=== PATIENT | male | born 1945 | race Caucasian/White ===

== ENCOUNTER 2018-01-03 10:28 | Inpatient (IN) ==
--- NOTE | 2018-01-02 21:41 | Discharge Summary ---
<Catherine Lee - Last Filed: 01/02/18 21:39> Orders not resulted at time of discharge: Pending orders 01/03/18 00:01 XR knee LT limited 1-2V [XR] Routine H/H [Hemoglobin and Hematocrit] [HEME] Routine Date of Encounter: 01/02/18 - Discharge Diagnosis (1) Arthritis of knee, left Priority: Primary Status: Acute (2) Status post total knee replacement, left Priority: Primary Status: Acute (3) Atrial fibrillation Priority: Secondary Status: Acute Comments: On Eliquis - Will resume this POD#1. Qualifiers: Atrial fibrillation type: unspecified Qualified Code(s): I48.91 - Unspecified atrial fibrillation (4) CAD (coronary artery disease) Priority: Secondary Status: Chronic Qualifiers: Coronary Disease-Associated Artery/Lesion type: unspecified vessel or lesion type [place] vs. transplanted heart: unspecified whether [place] or transplanted heart Associated angina: angina presence unspecified Qualified Code(s): I25.10 - Atherosclerotic heart disease of [place] coronary artery without angina pectoris (5) HTN (hypertension) Priority: Secondary Status: Chronic Qualifiers: Hypertension type: essential hypertension Qualified Code(s): I10 - Essential (primary) hypertension (6) DMII (diabetes mellitus, type 2) Priority: Secondary Status: Chronic Qualifiers: Diabetes mellitus chief of surgery insulin use: unspecified long-term insulin use status Diabetes mellitus complication status: with unspecified complications Qualified Code(s): E11.8 - Type 2 diabetes mellitus with unspecified complications (7) Asthma Priority: Secondary Status: Chronic Qualifiers: Asthma severity: unspecified severity Asthma persistence: unspecified Asthma complication type: unspecified Qualified Code(s): J45.909 - Unspecified asthma, uncomplicated (8) Chronic pain Priority: Secondary Status: Chronic Comments: Christina QID #120 LD: 12/13 - On hold. Qualifiers: Chronic pain type: other chronic pain Qualified Code(s): G89.29 - Other chronic pain (9) Anxiety Priority: Secondary Status: Chronic (10) Obesity Priority: Secondary Status: Chronic Qualifiers: Obesity type: unspecified obesity type Obesity classification: unspecified obesity classification Serious obesity comorbidity presence: unspecified whether serious comorbidity present Qualified Code(s): E66.9 - Obesity, unspecified - Hospital Course Hospital course: Mr. Spears is a 72 year old male - Time Spent with Patient Total time spent providing and/or coordinating discharge services: - Discharge Medications Home Medications: OxyCODONE Immed Rel [Roxicodone 5 MG] 5 mg PO Q6HR PRN 7 Days #28 tablet [Rx] Albuterol Sulfate [Ventolin Hfa] 2 puff IH Q4-6H PRN 01/03/18 [History] Apixaban [Eliquis] 5 mg PO BID 01/03/18 [History] Carvedilol 12.5 mg PO BID 01/03/18 [History] Furosemide [Lasix] 40 mg PO DAILY 01/03/18 [History] HYDROcodone/Acet 5/325 mg [[place] 5-325 mg] 1 tab PO Q6H PRN 01/03/18 [History] Insulin ASPART [NovoLOG] 10 unit SQ TIDWM 01/03/18 [History] Insulin DETEMIR [Levemir] 50 unit SQ HS 01/03/18 [History] Lisinopril [Zestril] 10 mg PO DAILY 01/03/18 [History] Sertraline [Zoloft] 100 mg PO DAILY 01/03/18 [History] Simvastatin [Zocor] 20 mg PO HS 01/03/18 [History] clonazePAM [Klonopin] 0.5 mg PO HS PRN 01/03/18 [History] Allergies/Adverse Reactions: 3 Allergy/AdvReac Type Severity Reaction Status Date / Time acetaminophen Allergy Hives Verified 01/03/18 12:27 [From Darvocet-N 100] propoxyphene Allergy Hives Verified 01/03/18 12:27 [From Darvocet-N 100] Primary care physician: Chang Ferrari - Patient Status Disposition: Transfer Other Condition: Fair - Discharge Instructions Follow Up With: Ange Rogel, CHEMICAL PROCESS EQUIPMENT OPERATOR [Primary Care Provider] - <Alex Nieves - Last Filed: 01/11/18 06:35> Orders not resulted at time of discharge: Pending orders 01/03/18 00:01 XR knee LT limited 1-2V [XR] Routine H/H [Hemoglobin and Hematocrit] [HEME] Routine Date of Encounter: 01/11/18 Time of Encounter: 06:33 - Discharge Diagnosis (1) Morbid obesity with BMI of 40.0-44.9, adult Priority: Secondary Status: Chronic (2) Arthritis of knee, left Priority: Primary Status: Chronic (3) Status post total knee replacement, left Priority: Primary Status: Acute (4) Atrial fibrillation Priority: Secondary Status: Chronic Qualifiers: Atrial fibrillation type: unspecified Qualified Code(s): I48.91 - Unspecified atrial fibrillation (5) CAD (coronary artery disease) Priority: Secondary Status: Chronic Qualifiers: Coronary Disease-Associated Artery/Lesion type: unspecified vessel or lesion type [place] vs. transplanted heart: unspecified whether [place] or transplanted heart Associated angina: angina presence unspecified Qualified Code(s): I25.10 - Atherosclerotic heart disease of [place] coronary artery without angina pectoris (6) HTN (hypertension) Priority: Secondary Status: Chronic Qualifiers: Hypertension type: essential hypertension Qualified Code(s): I10 - Essential (primary) hypertension (7) DMII (diabetes mellitus, type 2) Priority: Secondary Status: Chronic Qualifiers: Diabetes mellitus long-term insulin use: unspecified long-term insulin use status Diabetes mellitus complication status: with unspecified complications Qualified Code(s): E11.8 - Type 2 diabetes mellitus with unspecified complications (8) Asthma Priority: Secondary Status: Chronic Qualifiers: Asthma severity: unspecified severity Asthma persistence: unspecified Asthma complication type: unspecified Qualified Code(s): J45.909 - Unspecified asthma, uncomplicated (9) Chronic pain Priority: Secondary Status: Chronic Qualifiers: Chronic pain type: other chronic pain Qualified Code(s): G89.29 - Other chronic pain (10) Anxiety Priority: Secondary Status: Chronic (11) Acute kidney injury Priority: Primary Status: Acute (12) Hypocalcemia Priority: Primary Status: Acute (13) Slurred speech Priority: Primary Status: Acute (14) IVONE (obstructive sleep apnea) Priority: Primary Status: Acute (15) Altered mental status Priority: Primary Status: Acute Qualifiers: Altered mental status type: unspecified Qualified Code(s): R41.82 - Altered mental status, unspecified - Hospital Course Hospital course: Mr. Spears is a 72 year old male Patient status post left total knee replacement. Patient with acute kidney injury with increase in creatinine. Patient's transfer to the medical service for treatment of this kidney issues. Patient is always been alert and oriented when I see him in the morning, had some erythema around the left knee which is resolving. Patient is alert and oriented 3 this morning. Patient's transfer to the medical service. We will continue to follow - Time Spent with Patient Total time spent providing and/or coordinating discharge services: Primary care physician: Chang Ferrari - Patient Status Functional capacity at discharge: uses cane/walker Overall status at discharge: patient is not back to baseline
--- NOTE | 2018-01-03 10:56 | Anesthesia Evaluation PreOp ---
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 CTR, R. TKR,) Alcohol Use: none Drug use: none Medications and Allergies OxyCODONE Immed Rel [Roxicodone 5 MG] 5 mg PO Q6HR PRN 7 Days #28 tablet [Rx] 3 Allergy/AdvReac Type Severity Reaction Status Date / Time acetaminophen Allergy Hives Verified 01/03/18 10:59 [From Darvocet-N 100] propoxyphene Allergy Hives Verified 01/03/18 10:59 [From Darvocet-N 100] - Meds/Allergy Pre-op Review Medications Reviewed: Yes Allergies Reviewed: Yes Beta Blockers on Current Med List: Yes If Beta Blockers taken, Date/Time (Last Dose taken): Ordered today Carvedilol 25 mg po Anesthesia Results - Labs INR 1.1 BUN 16 CR 1.11 glu 211 Hg 14.1 Hct 42.7 WBC 8.0 - Imaging EKG: report reviewed (AF- rate 105) Anesthesia Exam O2 Sat Height 1.78 m Height 1.78 m Weight 127.913 kg Weight 127.913 kg O2 Sat by Pulse Oximetry 99 Vital Signs Temp Pulse Resp BP Pulse Ox 98.0 F 94 18 142/81 99 01/03/18 11:12 01/03/18 11:12 01/03/18 11:12 01/03/18 11:12 01/03/18 11:12 NPO (# of Hours): > 8 hrs Pain Scale: 0 Pain Scale Used: Numeric (1 - 10) - HEENT Pupil (Motor): Pupils equal, EOMI Mallampati: III Teeth: Edentulous Oral Opening: Greater than 3 - SADDLE LINING STITCHER LOC: Oriented SADDLE LINING STITCHER Motor: Normal RUE, Normal LUE, Normal RLE, Normal LLE, Normal Face SADDLE LINING STITCHER Sensory: Normal: RUE, LUE, RLE, LLE, Face - Cardiac Rhythm: Irregular Murmur: None JVD: No Carotid Bruit: No - Pulmonary Breath Sounds: bilateral Clear Respiratory Effort: Symmetrical Anesthesia Assess/Plan ASA Score: 4 Modified Rashaad Scale for Level of Consciousness: Cooperative, oriented, and tranquil Anesthetic Plan: General, Regional Autologous Blood: Yes Monitoring Plan: Standard Monitors Recovery Plan: PACU
[2018-01-03] MEDS ORDERED: CeFAZolin Syr 3,000MG/30 ML 3,000 MG/30 ML SYRINGE IVPB ONE (11:22)
[2018-01-03] MEDS ORDERED: Albuterol 2.5 MG/3 ML NEBULIZER IH ONE (11:22)
[2018-01-03] MEDS ORDERED: Ondansetron 4 MG/2 ML VIAL IVP ONE (11:43)
[2018-01-03] MEDS ORDERED: *HR* HYDROmorphone (PF) 1 MG/ML SYRINGE IVP PRN (11:43)
[2018-01-03] MEDS ORDERED: Dexamethasone 4 MG/ML VIAL IVP ONE (11:43)
[2018-01-03] MEDS ORDERED: *HR* Labetalol 20 MG/4 ML SYRINGE IVP PRN (11:43)
[2018-01-03] MEDS ORDERED: *HR* Promethazine 25 MG/ML VIAL IVP PRN (11:43)
--- NOTE | 2018-01-03 11:43 | History & Physical Report ---
Date of Encounter: 01/03/18 Time of Encounter: 11:43 24 Hour HP Update - Instructions Instructions: If the History and Physical is less than 30 days old and was completed prior to A.M. admission and or procedure and has NOT been updated on calendar day of procedure please complete this update prior to performing procedure. - Update Patient reports changes in Medical Condition: No Changes in examination, assessment, or condition: No Changes in Medication: No Preop tests/diagnostics Reviewed: Yes Surgery Remains Indicated: Yes Consent for Planned Operative Procedure(s) Verified: Yes - Pre-Operative Checklist Preoperative Checklist Indicated: No Prophylactic Antibiotic Ordered: Yes Is VTE Prophylaxis Indicated?: Yes
[2018-01-03] MEDS ORDERED: *HR* FentaNYL (PF) 100 MCG/2 ML VIAL ONE (11:45)
[2018-01-03] MEDS ORDERED: Ondansetron 4 MG/2 ML VIAL ONE (11:45)
[2018-01-03] MEDS ORDERED: Dexamethasone 4 MG/ML VIAL ONE (11:45)
[2018-01-03] MEDS ORDERED: *HR* Midazolam HCl 2 MG/2 ML VIAL ONE (11:45)
[2018-01-03] MEDS ORDERED: Lidocaine -MPF 2% 2 ML VIAL ONE (11:45)
[2018-01-03] MEDS ORDERED: *HR* Propofol 200 MG/20 ML VIAL IVP ONE (11:45)
[2018-01-03] MEDS ORDERED: Morphine Sulfate/PF 5mg/10mL Vial ONE (11:47)
[2018-01-03] MEDS: Ringers Solution, Lactated 1,000 ML IVC SCH ×2 (11:52→13:28)
[2018-01-03] MEDS ORDERED: Ethanol\\Acetic Acid\\Na Ace\\Ben 1,000 ML IRRIG.SOLN IR ONE (12:21)
[2018-01-03] MEDS ORDERED: ROPIVACAINE HCL/PF 0.5% 30 ML VIAL ONE (12:36)
[2018-01-03] MEDS ORDERED: Propofol 500 MG/50 ML INFUS..BTL ONE (12:59)
[2018-01-03] MEDS ORDERED: *HR* Phenylephrine 10 MG/ML VIAL ONE (13:19)
--- NOTE | 2018-01-03 14:07 | Physician Discharge Referral ---
ExtendedCare Referral Info Transfer To: F Provider in Charge: Provider in Charge after Transfer: PCP Institutional Level of Care: Skilled - Diagnosis (1) Arthritis of knee, left Priority: Primary Status: Chronic (2) Status post total knee replacement, left Priority: Primary Status: Acute (3) Atrial fibrillation Priority: Secondary Status: Acute (4) CAD (coronary artery disease) Priority: Secondary Status: Chronic (5) HTN (hypertension) Priority: Secondary Status: Chronic (6) DMII (diabetes mellitus, type 2) Priority: Secondary Status: Chronic (7) Asthma Priority: Secondary Status: Chronic (8) Chronic pain Priority: Secondary Status: Chronic (9) Anxiety Priority: Secondary Status: Chronic (10) Obesity Priority: Secondary Status: Chronic Expected Duration of Placement: < 30 days Prognosis: Good Aware of Diagnosis: Patient Aware of Prognosis: Patient - Transfer Medications Prescriptions: OxyCODONE Immed Rel [Roxicodone 5 MG] 5 mg PO Q6HR PRN 7 Days #28 tablet PRN Reason: Severe Pain Home Medications: OxyCODONE Immed Rel [Roxicodone 5 MG] 5 mg PO Q6HR PRN 7 Days #28 tablet [Rx] Albuterol Sulfate [Ventolin Hfa] 2 puff IH Q4-6H PRN 01/03/18 [History] Apixaban [Eliquis] 5 mg PO BID 01/03/18 [History] Carvedilol 12.5 mg PO BID 01/03/18 [History] Furosemide [Lasix] 40 mg PO DAILY 01/03/18 [History] HYDROcodone/Acet 5/325 mg [[place] 5-325 mg] 1 tab PO Q6H PRN 01/03/18 [History] Insulin ASPART [NovoLOG] 10 unit SQ TIDWM 01/03/18 [History] Insulin DETEMIR [Levemir] 50 unit SQ HS 01/03/18 [History] Lisinopril [Zestril] 10 mg PO DAILY 01/03/18 [History] Sertraline [Zoloft] 100 mg PO DAILY 01/03/18 [History] Simvastatin [Zocor] 20 mg PO HS 01/03/18 [History] clonazePAM [Klonopin] 0.5 mg PO HS PRN 01/03/18 [History] Allergies/Adverse Reactions: 3 Allergy/AdvReac Type Severity Reaction Status Date / Time acetaminophen Allergy Hives Verified 01/03/18 12:27 [From Darvocet-N 100] propoxyphene Allergy Hives Verified 01/03/18 12:27 [From Darvocet-N 100] - Respiratory Orders None Smoking Cessation: Smoking cessation has been advised. For more information, call the [place] Tobacco Quit Line at 9-657-ZYIV-NOW. - Ancillary Orders May use pressure relief devices daily prn, May go on LOVE w/family/respon constitution party w /meds at nurse discretion PRN - Mobility Orders Chair, Ambulate, Bedrest - Rehabiliation Orders Rehab Potential: Good Rehab Orders: ROM Exercises, Evaluation for Physical Therapy, Evaluation for Occupational Therapy Other: Rehab orders for total knee: Total Knee replacement Precautions x 6 weeks Apply cold therapy wrap 3-6x/day for 20 minutes at a time. Encourage ambulation throughout the day and incentive spirometer 10x/hour. Elevate affected extremity above heart as tolerated. Brace: Wear knee immobilizer at night x 2 weeks. Treatments: Opsite dressing, leave intact until first post-operative visit. If dressing becomes >50% saturated, contact office, remove dressing and place appropriate dressing in its place. Leave Zipline intact. Opsite dressing is water resistant, not water-proof. OK to shower, but do not get dressing wet. [place] in place, plan to remove at post-operative day #14-16 Medical: Resume Eliquis. Chronic pain medication on hold. CERTIFICATION: I certify that the transfer of the above named patient to an Extended Care Facility is necessary for the continuing treatment of the diagnosis listed. The above information is true and accurate reflection of patient's current condition. Confidential - Redisclosure prohibited without a patient's written consent.
--- NOTE | 2018-01-03 14:09 | Orthopedic Operative Note ---
Date of procedure: 01/03/18 Pre-op diagnosis: Left knee arthritis Post-op diagnosis: same Procedure: Procedure: Left robotic-assisted Total knee replacement Estimated blood loss: 200 cc Hardware: Metal and polyethylene replacement. [place] Femur: 6 Tibia: 7 TS insert: 9 Patella: 39 Exam Under anesthesia: 5 degrees flexion contracture, 13 degree varus as calculated by the robot full flexion and no instability Procedural Notes: Grade 4 arthritic changes all 3 compartment. Operative procedure: The patient was brought to the operating room and placed on the operating room table. After general anesthesia was administered the operative knee was examined. Findings were noted in the exam under anesthesia. The operative extremity was prepped and draped in sterile surgical fashion. The patient received IV antibiotics prior to skin incision. A standard midline incision was made centered over the patella. The incision was made through the skin and subcutaneous tissue. A medial parapatellar tendon approach was performed. Care was taken to preserve tissue along the medial aspect of the patella. And to protect the patella tendon. The deep MCL was released off the medial tibia. The infra patella fat pad was excised. The patella was everted and cut was made at the level of the insertion of the quadriceps and patella tendon. The patella was sized the guide was seated and the lug holes are drilled. Knee was brought into flexion. Patient noted to have grade 4 arthritic changes all 3 compartments. Steinmann pins were placed in the tibia and the femur for the tibial and femoral arrays respectively. Checkpoints were also placed in the tibia and the femur for calculation purposes. The knee including the femur and the tibial registered. Osteophytes, ACL and PCL were excised at this point. Extension and flexion were assessed with a valgus stress components were adjusted on the computer to balance the knee. Femoral cuts were made first with robotic assistance, these included the anterior cut posterior cuts chamfer cuts. Tibial cut was then performed with robotic assistance as well. Bone fragments were removed, as well as the medial and lateral meniscus. The size 6 femoral guide was seated box cut was made lug holes are drilled. The size 7 tibial tray was seated and prepared with the fin cutter. Trial reduction with the 9 TS Babs revealed extension of 0 degree and 80 degrees varus full flexion. No varus valgus instability. Trial reduction revealed excellent patella tracking. All trial components were removed all bony surfaces were irrigated. The Tibia was seated followed by the femur, The Babs size 9 was seated and secured patella. Patient had similar findings for motion and stability. One checkpoint was not located when it was time to remove it. Intraoperative film did not show it in the knee. The knee was closed by the PA. The knee was then irrigated out with 2 L of pulse irrigation. The extensor mechanism was closed with #2 FiberWire suture and #2 PDS suture. The subcutaneous tissue was then irrigated and closed deep with #1 PDS suture superficially with 0 PDS suture and skin was closed with zip tie The patient was then placed in a sterile dressing and a postoperative brace extubated and transferred to recovery room in stable condition. Anesthesia: GETA Surgeon: Alex Nieves Was there an assistant plant controller present: Yes Search Engine Marketing Manager: Iris Leslie Estimated blood loss (cc): 200 Disposition: PACU
--- NOTE | 2018-01-03 15:29 | Anesthesia Evaluation Post Op ---
Date of Encounter: 01/03/18 Time of Encounter: 15:28 - Vital Signs Vital Signs: Vital Signs/O2 Sat, Most Current Temp Pulse Resp BP Pulse Ox 97.1 F L 78 16 108/76 95 01/03/18 15:14 01/03/18 15:24 01/03/18 15:24 01/03/18 15:24 01/03/18 15:24 - Lungs Lungs: Clear Ascult./Percussion - Airway Airway: Non-obstructed - Cardiovascular Irregular Rate, Baseline Rhythm - Mental Status Mental Status: Alert & Oriented, Answers Appropriately - Pain Pain Scale: 0 Pain Scale used: Numeric (1 - 10) - Nausea Vomiting Nausea Vomiting: Not Present - Hydration Hydration: Ice chips, Has not voided - Discharge PostOp Status: Transfer Patient to floor
[2018-01-03] MEDS ORDERED: Naloxone 0.4 MG/ML INJ IVP PRN (15:43)
[2018-01-03] MEDS ORDERED: *HR* Dextrose 50 % in Water (Syg) 50 ML SYRINGE IVP PRN (15:43)
[2018-01-03] MEDS ORDERED: Ondansetron 4 MG/2 ML VIAL IVP PRN (15:43)
[2018-01-03] MEDS ORDERED: MOM Conc 10 ML UD.LIQ PO PRN (15:43)
[2018-01-03] MEDS ORDERED: clonazePAM 0.5 MG TABLET PO PRN (15:43)
[2018-01-03] MEDS ORDERED: Dextrose Gel 15 GM/37.5 ML TUBE PO PRN ×2 (15:43)
[2018-01-03] MEDS ORDERED: D5% in Water 1,000 ML IVC PRN (15:43)
[2018-01-03] MEDS ORDERED: Sennosides 8.6 MG TABLET PO PRN (15:43)
[2018-01-03] MEDS: Insulin LISPRO 300 UNITS/3 ML VIAL SQ SCH ×3 (16:35→22:30)
--- NOTE | 2018-01-03 17:08 | Electrocardiograph Report ---
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
[2018-01-03] MEDS: CeFAZolin Syr 3,000MG/30 ML 3,000 MG/30 ML SYRINGE IVPB SCH (18:14)
--- NOTE | 2018-01-03 20:57 | Orthopedics Progress Note ---
Date of Encounter: 01/03/18 Time of Encounter: 20:55 - Assessment and Plan (1) Morbid obesity with BMI of 40.0-44.9, adult Current Visit: Yes Status: Chronic (2) Arthritis of knee, left Current Visit: No Status: Chronic (3) Status post total knee replacement, left Current Visit: No Status: Acute (4) Atrial fibrillation Current Visit: No Status: Acute Qualifiers: Atrial fibrillation type: unspecified Qualified Code(s): I48.91 - Unspecified atrial fibrillation (5) CAD (coronary artery disease) Current Visit: No Status: Chronic Qualifiers: Coronary Disease-Associated Artery/Lesion type: unspecified vessel or lesion type [place] vs. transplanted heart: unspecified whether [place] or transplanted heart Associated angina: angina presence unspecified Qualified Code(s): I25.10 - Atherosclerotic heart disease of [place] coronary artery without angina pectoris (6) HTN (hypertension) Current Visit: No Status: Chronic Qualifiers: Hypertension type: essential hypertension Qualified Code(s): I10 - Essential (primary) hypertension (7) DMII (diabetes mellitus, type 2) Current Visit: No Status: Chronic Qualifiers: Diabetes mellitus shelter insulin use: unspecified shelter insulin use status Diabetes mellitus complication status: with unspecified complications Qualified Code(s): E11.8 - Type 2 diabetes mellitus with unspecified complications (8) Asthma Current Visit: No Status: Chronic Qualifiers: Asthma severity: unspecified severity Asthma persistence: unspecified Asthma complication type: unspecified Qualified Code(s): J45.909 - Unspecified asthma, uncomplicated (9) Chronic pain Current Visit: No Status: Chronic Qualifiers: Chronic pain type: other chronic pain Qualified Code(s): G89.29 - Other chronic pain (10) Anxiety Current Visit: No Status: Chronic Subjective Interval history: patient seen by physical therapy after surgery and felt to be unsafe to go home. They recommend ECF postoperativel. Patient also with multiple active medical co-morbidities which also makes it unsafe to be discharge home within 24 hours. Objective Vital signs: Vital Signs Temp Pulse Resp BP Pulse Ox 01/03/18 19:08 98.6 F 82 18 92/63 92 01/03/18 18:17 98.3 F 82 14 93/58 96 01/03/18 16:52 98.3 F 82 16 106/70 96 01/03/18 16:30 98.2 F 85 14 92/54 97 01/03/18 16:00 98.2 F 79 16 112/74 96 01/03/18 15:34 76 18 120/83 96 01/03/18 15:24 78 16 108/76 95 01/03/18 15:14 97.1 F L 63 16 109/80 98 01/03/18 15:04 75 18 105/68 98 01/03/18 14:54 68 16 92/61 98 01/03/18 14:44 96.8 F L 62 18 102/84 100 01/03/18 12:16 92 16 148/100 98 01/03/18 11:39 98.0 F 94 18 142/81 99 01/03/18 11:12 98.0 F 94 18 142/81 99 Intake and Output 01/03/18 01/03/18 01/03/18 07:59 15:59 23:59 Intake Total 1000 / 1000 Output Total 200 / 200 Balance 800 / 800 Intake: IV Fluids 1000 / 1000 Lactated Ringers 1,000 ML @ 25 1000 / 1000 mls/hr IVC .Q24H RAFAEL Rx#: [id number] Output: Estimated Blood Loss 200 / 200 Other: Weight 127.913 kg Blood Glucose* 200 159 Patient Weight 01/03/18 23:59 Weight 127.913 kg - Labs Labs: Abnormal lab results POC Glucose 292 mg/dL (70-99) H 01/03/18 16:07 - VTE Documentation of Mechanical Device: Venous foot pump, device Consult Discharge Plan - Plan Referrals: Ange Rogel, CHEMIST INSTRUMENTATION [Primary Care Provider] - Prescriptions: OxyCODONE Immed Rel [Roxicodone 5 MG] 5 mg PO Q6HR PRN 7 Days #28 tablet PRN Reason: Severe Pain
[2018-01-03] MEDS ORDERED: NON-FORMULARY MEDICATION 1 EACH EACH (Insulin Detemir 50 UNIT) SQ SCH (21:00)
[2018-01-03] MEDS: Apixaban 5 MG TABLET PO SCH (22:30)
[2018-01-03] MEDS: Insulin DETEMIR 100 UNIT/ML X5UNITS SQ SCH (22:30)
[2018-01-04 01:06] LABS: Hematocrit 35.4 % (37.5-50.1); Hemoglobin 11.8 g/dL (12.9-16.9)
[2018-01-04 01:24] LABS: Calcium 8.6 mg/dL (8.6-10.3); Potassium 4.5 mEq/L (3.5-5.1)
[2018-01-04] MEDS: CeFAZolin Syr 3,000MG/30 ML 3,000 MG/30 ML SYRINGE IVPB SCH (03:57)
--- NOTE | 2018-01-04 06:36 | Orthopedics Progress Note ---
Date of Encounter: 01/04/18 Time of Encounter: 06:35 - Assessment and Plan (1) Morbid obesity with BMI of 40.0-44.9, adult Current Visit: Yes Status: Chronic (2) Arthritis of knee, left Current Visit: No Status: Chronic (3) Status post total knee replacement, left Current Visit: No Status: Acute (4) Atrial fibrillation Current Visit: No Status: Acute Qualifiers: Atrial fibrillation type: unspecified Qualified Code(s): I48.91 - Unspecified atrial fibrillation (5) CAD (coronary artery disease) Current Visit: No Status: Chronic Qualifiers: Coronary Disease-Associated Artery/Lesion type: unspecified vessel or lesion type [place] vs. transplanted heart: unspecified whether [place] or transplanted heart Associated angina: angina presence unspecified Qualified Code(s): I25.10 - Atherosclerotic heart disease of [place] coronary artery without angina pectoris (6) HTN (hypertension) Current Visit: No Status: Chronic Qualifiers: Hypertension type: essential hypertension Qualified Code(s): I10 - Essential (primary) hypertension (7) DMII (diabetes mellitus, type 2) Current Visit: No Status: Chronic Qualifiers: Diabetes mellitus senior living insulin use: unspecified senior living insulin use status Diabetes mellitus complication status: with unspecified complications Qualified Code(s): E11.8 - Type 2 diabetes mellitus with unspecified complications (8) Asthma Current Visit: No Status: Chronic Qualifiers: Asthma severity: unspecified severity Asthma persistence: unspecified Asthma complication type: unspecified Qualified Code(s): J45.909 - Unspecified asthma, uncomplicated (9) Chronic pain Current Visit: No Status: Chronic Qualifiers: Chronic pain type: other chronic pain Qualified Code(s): G89.29 - Other chronic pain (10) Anxiety Current Visit: No Status: Chronic Subjective Interval history: Patient was seen this morning doing well without complaints. Afebrile vital signs stable. Operative extremity: Neurovascularly intact Dressing clean dry and intact Calves nontender Assessment and plan: Continue with postoperative care Hematocrit 35. Objective Vital signs: Vital Signs Temp Pulse Resp BP Pulse Ox 01/04/18 06:17 98.2 F 86 18 110/64 95 01/04/18 04:44 97.6 F 85 15 99/71 96 01/03/18 23:11 98.4 F 86 19 87/50 97 04/23/18 19:08 98.6 F 82 18 92/63 92 01/03/18 18:17 98.3 F 82 14 93/58 96 01/03/18 16:52 98.3 F 82 16 106/70 96 01/03/18 16:30 98.2 F 85 14 92/54 97 01/03/18 16:00 98.2 F 79 16 112/74 96 01/03/18 15:34 76 18 120/83 96 01/03/18 15:24 78 16 108/76 95 01/03/18 15:14 97.1 F L 63 16 109/80 98 01/03/18 15:04 75 18 105/68 98 01/03/18 14:54 68 16 92/61 98 01/03/18 14:44 96.8 F L 62 18 102/84 100 01/03/18 12:16 92 16 148/100 98 01/03/18 11:39 98.0 F 94 18 142/81 99 01/03/18 11:12 98.0 F 94 18 142/81 99 Intake and Output 01/03/18 01/03/18 01/04/18 15:59 23:59 07:59 Intake Total 1000 / 1000 510 / 510 Output Total 200 / 200 Balance 800 / 800 510 / 510 Intake: IV Fluids 1000 / 1000 30 / 30 Lactated Ringers 1,000 ML @ 25 1000 / 1000 mls/hr IVC .Q24H [facility] Rx#: [id number] Ancef Syringe 3,000 MG/30 ML 3, 30 / 30 000 mg In 30 ml @ 200 mls/hr IVPB Q8H [facility] Rx#:[id number] Oral 480 / 480 Output: Estimated Blood Loss 200 / 200 Other: Weight 127.913 kg Blood Glucose* 200 159 - Labs CBC & BMP: 01/04/18 00:30 01/04/18 00:30 Labs: Abnormal lab results Hgb 11.8 g/dL (12.9-16.9) L 01/04/18 00:30 Hct 35.4 % (37.5-50.1) L 01/04/18 00:30 Creatinine 1.82 mg/dL (0.70-1.30) H 01/04/18 00:30 Est GFR ( Amer) 44 (> 60) L 01/04/18 00:30 Est GFR (Non-Af Amer) 37 (> 60) L 01/04/18 00:30 Glucose 144 mg/dL (70-105) H 01/04/18 00:30 POC Glucose 292 mg/dL (70-99) H 01/03/18 16:07 - VTE Documentation of Mechanical Device: Venous foot pump, device Consult Discharge Plan - Plan Referrals: Ange Rogel, CAM [Primary Care Provider] -
[2018-01-04] MEDS: Apixaban 5 MG TABLET PO SCH ×2 (08:13→21:29)
[2018-01-04] MEDS: Furosemide 40 MG TABLET PO SCH (08:14)
[2018-01-04] MEDS: Insulin LISPRO 300 UNITS/3 ML VIAL SQ SCH ×7 (08:14→21:29)
[2018-01-04] MEDS: Ringers Solution, Lactated 1,000 ML IVC SCH (11:50)
--- NOTE | 2018-01-04 13:40 | Event Note ---
Date of Encounter: 01/04/18 Time of Encounter: 13:35 PCR - POD#1 Left TKR Patient seen at bedside. Anticoagulated with Eliquis - resumed today Hypotension - improved with Bolus and continued IV fluids. Continue telemetry chip [facility] reviewed. Pain control: Chronic pain - [place] 5/325 QID on hold. Participating in PT. All questions and concerns addressed. Educated on use of incentive spirometer. Encouraged ambulation and proper hydration. Patient educated on post-operative restrictions and post-operative care. Addressed: see above Discharge plan: [facility] on WEDNESDAY
[2018-01-04] MEDS: Gabapentin 300 MG CAPSULE PO SCH ×2 (17:44→21:29)
[2018-01-04] MEDS: *HR* OxyCODONE Immed Rel 5 MG TABLET PO PRN (17:57)
[2018-01-04] MEDS: Insulin DETEMIR 100 UNIT/ML X5UNITS SQ SCH (21:31)
[2018-01-05 01:07] LABS: Hematocrit 31.7 % (37.5-50.1); Hemoglobin 10.6 g/dL (12.9-16.9)
[2018-01-05 01:25] LABS: Calcium 8.5 mg/dL (8.6-10.3); Potassium 4.3 mEq/L (3.5-5.1)
[2018-01-05] MEDS: *HR* OxyCODONE Immed Rel 5 MG TABLET PO PRN ×5 (01:28→21:32)
[2018-01-05] MEDS: Insulin LISPRO 300 UNITS/3 ML VIAL SQ SCH ×7 (07:17→21:33)
--- NOTE | 2018-01-05 07:18 | Orthopedics Progress Note ---
Date of Encounter: 01/05/18 Time of Encounter: 07:18 - Assessment and Plan (1) Morbid obesity with BMI of 40.0-44.9, adult Current Visit: Yes Status: Chronic (2) Arthritis of knee, left Current Visit: No Status: Chronic (3) Status post total knee replacement, left Current Visit: No Status: Acute (4) Atrial fibrillation Current Visit: No Status: Acute Qualifiers: Atrial fibrillation type: unspecified Qualified Code(s): I48.91 - Unspecified atrial fibrillation (5) CAD (coronary artery disease) Current Visit: No Status: Chronic Qualifiers: Coronary Disease-Associated Artery/Lesion type: unspecified vessel or lesion type [place] vs. transplanted heart: unspecified whether [place] or transplanted heart Associated angina: angina presence unspecified Qualified Code(s): I25.10 - Atherosclerotic heart disease of [place] coronary artery without angina pectoris (6) HTN (hypertension) Current Visit: No Status: Chronic Qualifiers: Hypertension type: essential hypertension Qualified Code(s): I10 - Essential (primary) hypertension (7) DMII (diabetes mellitus, type 2) Current Visit: No Status: Chronic Qualifiers: Diabetes mellitus usp insulin use: unspecified usp insulin use status Diabetes mellitus complication status: with unspecified complications Qualified Code(s): E11.8 - Type 2 diabetes mellitus with unspecified complications (8) Asthma Current Visit: No Status: Chronic Qualifiers: Asthma severity: unspecified severity Asthma persistence: unspecified Asthma complication type: unspecified Qualified Code(s): J45.909 - Unspecified asthma, uncomplicated (9) Chronic pain Current Visit: No Status: Chronic Qualifiers: Chronic pain type: other chronic pain Qualified Code(s): G89.29 - Other chronic pain (10) Anxiety Current Visit: No Status: Chronic Subjective Interval history: Patient was seen this morning doing well without complaints. Afebrile vital signs stable. Operative extremity: Neurovascularly intact Dressing clean dry and intact Calves nontender Assessment and plan: Continue with postoperative care Hematocrit 31 Objective Vital signs: Vital Signs Temp Pulse Resp BP Pulse Ox 01/05/18 03:55 97.8 F 72 17 104/70 96 01/05/18 00:08 97.9 F 83 17 93/60 96 01/04/18 18:27 97.7 F 80 18 114/65 98 01/04/18 15:16 98.0 F 82 16 100/63 100 01/04/18 11:52 97.9 F 79 18 95/58 96 01/04/18 10:46 97.7 F 82 18 95 Intake and Output 01/04/18 01/04/18 01/05/18 15:59 23:59 07:59 Intake Total 480 / 480 400 / 400 Output Total 0 / 0 Balance 480 / 480 400 / 400 Intake: Oral 480 / 480 400 / 400 Output: Urine 0 / 0 Other: Meal Lunch Dinner Percent of Meal Consumed 95% 95% # Voids 1 1 Blood Glucose* 295 130 - Labs CBC & BMP: 01/05/18 00:43 01/05/18 00:43 Labs: Abnormal lab results Hgb 10.6 g/dL (12.9-16.9) L 01/05/18 00:43 Hct 31.7 % (37.5-50.1) L 01/05/18 00:43 Sodium 134 mEq/L (136-145) L 01/05/18 00:43 BUN 37 mg/dL (8-23) H 01/05/18 00:43 Creatinine 1.92 mg/dL (0.70-1.30) H 01/05/18 00:43 Est GFR ( Amer) 42 (> 60) L 01/05/18 00:43 Est GFR (Non-Af Amer) 35 (> 60) L 01/05/18 00:43 Glucose 145 mg/dL (70-105) H 01/05/18 00:43 POC Glucose 130 mg/dL (70-99) H 01/04/18 20:35 Calcium 8.5 mg/dL (8.6-10.3) L 01/05/18 00:43 - VTE Documentation of Mechanical Device: Venous foot pump, device Consult Discharge Plan - Plan Referrals: Ange Rogel, FORMULATION SCIENTIST [Primary Care Provider] -
[2018-01-05] MEDS: Furosemide 40 MG TABLET PO SCH (08:29)
[2018-01-05] MEDS: Gabapentin 300 MG CAPSULE PO SCH ×3 (08:29→21:32)
[2018-01-05] MEDS: Apixaban 5 MG TABLET PO SCH ×2 (08:30→21:32)
[2018-01-05] MEDS: Insulin DETEMIR 100 UNIT/ML X5UNITS SQ SCH ×2 (21:33→21:56)
[2018-01-06] MEDS: *HR* OxyCODONE Immed Rel 5 MG TABLET PO PRN (02:31)
[2018-01-06 03:18] LABS: Calcium 8.5 mg/dL (8.6-10.3); Potassium 4.3 mEq/L (3.5-5.1)
[2018-01-06] MEDS ORDERED: 0.9 % Sodium Chloride 500 ML IVC ONE ×2 (07:27→08:28)
[2018-01-06] MEDS ORDERED: 0.9 % Sodium Chloride 1,000 ML IVC SCH (07:30)
[2018-01-06 07:45] LABS: Hematocrit 31.8 % (37.5-50.1); Hemoglobin 10.3 g/dL (12.9-16.9)
[2018-01-06] MEDS: Gabapentin 300 MG CAPSULE PO SCH ×3 (07:50→21:40)
[2018-01-06] MEDS: Furosemide 40 MG TABLET PO SCH (07:50)
--- NOTE | 2018-01-06 07:50 | Orthopedics Progress Note ---
Date of Encounter: 01/06/18 Time of Encounter: 07:48 - Assessment and Plan (1) Morbid obesity with BMI of 40.0-44.9, adult Current Visit: Yes Status: Chronic (2) Arthritis of knee, left Current Visit: No Status: Chronic (3) Status post total knee replacement, left Current Visit: No Status: Acute (4) Atrial fibrillation Current Visit: No Status: Acute Qualifiers: Atrial fibrillation type: unspecified Qualified Code(s): I48.91 - Unspecified atrial fibrillation (5) CAD (coronary artery disease) Current Visit: No Status: Chronic Qualifiers: Coronary Disease-Associated Artery/Lesion type: unspecified vessel or lesion type [place] vs. transplanted heart: unspecified whether [place] or transplanted heart Associated angina: angina presence unspecified Qualified Code(s): I25.10 - Atherosclerotic heart disease of [place] coronary artery without angina pectoris (6) HTN (hypertension) Current Visit: No Status: Chronic Qualifiers: Hypertension type: essential hypertension Qualified Code(s): I10 - Essential (primary) hypertension (7) DMII (diabetes mellitus, type 2) Current Visit: No Status: Chronic Qualifiers: Diabetes mellitus detention insulin use: unspecified detention insulin use status Diabetes mellitus complication status: with unspecified complications Qualified Code(s): E11.8 - Type 2 diabetes mellitus with unspecified complications (8) Asthma Current Visit: No Status: Chronic Qualifiers: Asthma severity: unspecified severity Asthma persistence: unspecified Asthma complication type: unspecified Qualified Code(s): J45.909 - Unspecified asthma, uncomplicated (9) Chronic pain Current Visit: No Status: Chronic Qualifiers: Chronic pain type: other chronic pain Qualified Code(s): G89.29 - Other chronic pain (10) Anxiety Current Visit: No Status: Chronic Subjective Interval history: Patient was seen this morning doing well without complaints. Afebrile vital signs stable. Operative extremity: Neurovascularly intact Dressing clean dry and intact Cal[place] nontender Assessment and plan: Continue with postoperative care Creatinine 2.05 will obtain hospitalist consult Objective Vital signs: Vital Signs Temp Pulse Resp BP Pulse Ox 01/06/18 06:50 98.5 F 87 16 118/73 98 01/06/18 05:30 98.4 F 93 18 115/67 96 01/06/18 00:31 98.5 F 100 16 133/74 98 01/05/18 20:41 99.0 F 89 16 106/60 97 01/05/18 10:10 98.0 F 81 16 104/53 95 01/05/18 09:26 16 96 Intake and Output 01/05/18 01/05/18 01/06/18 15:59 23:59 07:59 Intake Total 350 / 350 Output Total 700 / 700 300 / 300 100 / 100 Balance -350 / -350 -300 / -300 -100 / -100 Intake: Oral 350 / 350 Output: Urine 700 / 700 300 / 300 100 / 100 Other: Meal Lunch Percent of Meal Consumed 80% Stool Size Large Stool Consistency formed Stool Color Brown # Voids 1 Weight 140.9 kg Blood Glucose* 99 115 Patient Weight 01/06/18 23:59 Weight 140.9 kg - Labs CBC & BMP: 01/06/18 00:58 04 00:58 Labs: Abnormal lab results Hgb 10.3 g/dL (12.9-16.9) L 01/06/18 00:58 Hct 31.8 % (37.5-50.1) L 01/06/18 00:58 BUN 44 mg/dL (8-23) H 01/06/18 00:58 Creatinine 2.05 mg/dL (0.70-1.30) H 01/06/18 00:58 Est GFR ( Amer) 39 (> 60) L 01/06/18 00:58 Est GFR (Non-Af Amer) 32 (> 60) L 01/06/18 00:58 POC Glucose 115 mg/dL (70-99) H 01/05/18 20:50 Calcium 8.5 mg/dL (8.6-10.3) L 01/06/18 00:58 - VTE Documentation of Mechanical Device: Venous foot pump, device Consult Discharge Plan - Plan Referrals: Ange Rogel CNP [Primary Care Provider] -
[2018-01-06] MEDS: Insulin LISPRO 300 UNITS/3 ML VIAL SQ SCH ×7 (07:52→21:40)
[2018-01-06] MEDS: Apixaban 5 MG TABLET PO SCH ×2 (07:53→21:40)
[2018-01-06] MEDS ORDERED: *HR* Morphine 2 MG/ML SYRINGE IVP PRN (08:41)
--- NOTE | 2018-01-06 08:47 | Internal Medicine Consult Note ---
<Zaria Lamar - Last Filed: 01/06/18 11:26> Date of Encounter: 01/06/18 - Assessment and plan (1) Arthritis of knee, left Current Visit: No Status: Chronic (2) Status post total knee replacement, left Current Visit: Yes Status: Acute (3) Atrial fibrillation Current Visit: No Status: Acute Qualifiers: Atrial fibrillation type: unspecified Qualified Code(s): I48.91 - Unspecified atrial fibrillation (4) CAD (coronary artery disease) Current Visit: No Status: Chronic Qualifiers: Coronary Disease-Associated Artery/Lesion type: unspecified vessel or lesion type [place] vs. transplanted heart: unspecified whether [place] or transplanted heart Associated angina: angina presence unspecified Qualified Code(s): I25.10 - Atherosclerotic heart disease of [place] coronary artery without angina pectoris (5) HTN (hypertension) Current Visit: No Status: Chronic Qualifiers: Hypertension type: essential hypertension Qualified Code(s): I10 - Essential (primary) hypertension (6) DMII (diabetes mellitus, type 2) Current Visit: No Status: Chronic Qualifiers: Diabetes mellitus [place] insulin use: unspecified [place] insulin use status Diabetes mellitus complication status: with unspecified complications Qualified Code(s): E11.8 - Type 2 diabetes mellitus with unspecified complications (7) Asthma Current Visit: No Status: Chronic Qualifiers: Asthma severity: unspecified severity Asthma persistence: unspecified Asthma complication type: unspecified Qualified Code(s): J45.909 - Unspecified asthma, uncomplicated (8) Acute on chronic renal failure Current Visit: Yes Status: Acute Qualifiers: Acute renal failure type: unspecified Chronic kidney disease stage: stage 3 (moderate) Qualified Code(s): N17.9 - Acute kidney failure, unspecified; N18.3 - Chronic kidney disease, stage 3 (moderate); N18.3 - Chronic kidney disease, stage 3 (moderate) (9) Weakness Current Visit: Yes Status: Acute - Time Spent With Patient Total time spent is greater than 50% in coordination of care (as documented) at patient's floor/unit and/or counseling patient: Internal Medicine - CN: HPI - Data of Consult Requesting Physician: Alex Nieves MD - Consult Narrative History of present illness: Mr. Spears is a 72 year old male Internal Medicine - CN: Meds OxyCODONE Immed Rel [Roxicodone 5 MG] 5 mg PO Q6HR PRN 7 Days #28 tablet [Rx] Albuterol Sulfate [Ventolin Hfa] 2 puff IH Q4-6H PRN 01/03/18 [History] Apixaban [Eliquis] 5 mg PO BID 01/03/18 [History] Carvedilol 12.5 mg PO BID 01/03/18 [History] Furosemide [Lasix] 40 mg PO DAILY 01/03/18 [History] HYDROcodone/Acet 5/325 mg [Star 5-325 mg] 1 tab PO Q6H PRN 01/03/18 [History] Insulin ASPART [NovoLOG] 10 unit SQ TIDWM 01/03/18 [History] Insulin DETEMIR [Levemir] 50 unit SQ HS 01/03/18 [History] Lisinopril [Zestril] 10 mg PO DAILY 01/03/18 [History] Sertraline [Zoloft] 100 mg PO DAILY 01/03/18 [History] Simvastatin [Zocor] 20 mg PO HS 01/03/18 [History] clonazePAM [Klonopin] 0.5 mg PO HS PRN 01/03/18 [History] 3 Allergy/AdvReac Type Severity Reaction Status Date / Time acetaminophen Allergy Hives Verified 01/03/18 12:27 [From Darvocet-N 100] propoxyphene Allergy Hives Verified 01/03/18 12:27 [From Darvocet-N 100] Internal Medicine - CN: Exam - Constitutional Vitals: Temp Pulse Resp BP Pulse Ox 98.5 F 87 16 118/73 98 01/06/18 06:50 01/06/18 06:50 01/06/18 06:50 01/06/18 06:50 01/06/18 06:50 Internal Medicine - CN: Reslt - Labs CBC & Chem 7: 01/06/18 00:58 01/06/18 00:58 Labs: Short CBC 01/06/18 Range/Units 00:58 Hgb 10.3 L (12.9-16.9) g/dL Hct 31.8 L (37.5-50.1) % BMP 01/06/18 00:58 Sodium 136 Potassium 4.3 Chloride 102 Carbon Dioxide 28 BUN 44 H Creatinine 2.05 H Glucose 71 Calcium 8.5 L Consult Discharge Plan - Plan Referrals: Ange Rogel, CABLE MAINTAINER [Primary Care Provider] - - Attending Attestation Patient examined, reviewed the note and agreed with plan of care. Will also hold JIMMY inhibitor, Lasix because of acute kidney injury. Continue gentle hydration with a strict I&O's. Patient has history of CKD daily but never got evaluated by wheel grinder therefore wheel grinder consulted. Patient also has low blood glucose level therefore decrease long-acting insulin dose 30 units instead 50 unit and continue Accu-Cheks with close monitoring. Hydralazine IV as needed for blood pressure control. <Jose Lundy - Last Filed: 01/06/18 12:29> Date of Encounter: 01/06/18 Time of Encounter: 08:43 - Assessment and plan (1) Weakness Current Visit: Yes Status: Acute Assessment and plan: Etiology likely multifactorial: Recent surgery, uncontrolled pain, impaired daily activity. - Continue PT/OT, morphine IV ordered for severe pain. - Check TSH, vitamin D level, and magnesium. (2) Acute on chronic renal failure Current Visit: Yes Status: Acute Assessment and plan: -No previous chart available at this time, baseline creatinine unknown. 1.84 on admission and 2.2 this morning with elevated BUNs. Clinical picture is consistent with prerenal failure. - Hold Lasix for now, give normal saline 500 bolus, continuing maintaining IV fluid. Continue lisinopril for now. - We will repeat RFP in the morning, if no improvement, further testing will pursue. Qualifiers: Acute renal failure type: unspecified Chronic kidney disease stage: stage 3 (moderate) Qualified Code(s): N17.9 - Acute kidney failure, unspecified; N18.3 - Chronic kidney disease, stage 3 (moderate); N18.3 - Chronic kidney disease, stage 3 (moderate) (3) Arthritis of knee, left Current Visit: No Status: Chronic (4) Status post total knee replacement, left Current Visit: Yes Status: Acute Assessment and plan: - Orthopedics following. (5) Atrial fibrillation Current Visit: No Status: Acute Assessment and plan: - Rate controlled, 80-100, continue Eliquis. Qualifiers: Atrial fibrillation type: unspecified Qualified Code(s): I48.91 - Unspecified atrial fibrillation (6) CAD (coronary artery disease) Current Visit: No Status: Chronic Assessment and plan: - No chest pain, continue current treatment. Qualifiers: Coronary Disease-Associated Artery/Lesion type: unspecified vessel or lesion type [place] vs. transplanted heart: unspecified whether [place] or transplanted heart Associated angina: angina presence unspecified Qualified Code(s): I25.10 - Atherosclerotic heart disease of [place] coronary artery without angina pectoris (7) HTN (hypertension) Current Visit: No Status: Chronic Assessment and plan: - BP controlled, continue current treatment. Qualifiers: Hypertension type: essential hypertension Qualified Code(s): I10 - Essential (primary) hypertension (8) DMII (diabetes mellitus, type 2) Current Visit: No Status: Chronic Assessment and plan: - Blood glucose controlled, continue current insulin regimen. Qualifiers: Diabetes mellitus [place] insulin use: unspecified [facility] insulin use status Diabetes mellitus complication status: with unspecified complications Qualified Code(s): E11.8 - Type 2 diabetes mellitus with unspecified complications (9) Asthma Current Visit: No Status: Chronic Assessment and plan: - Asymptomatic, continue current treatment. Qualifiers: Asthma severity: unspecified severity Asthma persistence: unspecified Asthma complication type: unspecified Qualified Code(s): J45.909 - Unspecified asthma, uncomplicated - Time Spent With Patient Total time spent is greater than 50% in coordination of care (as documented) at patient's floor/unit and/or counseling patient: Greater than 35 minutes Internal Medicine - CN: HPI - Data of Consult Requesting Physician: Alex Nieves MD - Consult Narrative History of present illness: Mr. Spears is a 72 year old male past medical history of CAD, atrial fibrillation, diabetes, chronic renal failure, osteoarthritis who was admitted on 01/03/2018 by orthopedics service. He underwent left total knee replacement on the same day. He has recovered very well per orthopedics postoperatively. However in the last 1-2 days, patient complaining generalized weakness, PTOT has been worked him, he said because he has severe pain, did not participate too much. This morning labs revealed rising creatinine, osmolality service was consult regarding both the weakness and the acute on chronic renal failure. Patient chart was reviewed, he denies fever, chills, or night sweats. He has no chest pain, shortness breath, or syncope. His bowel has been moved. He denies any urinary symptoms. Past Med Surg Social Fam HX - Past Medical History Medical history: atrial fibrillation, coronary artery disease, diabetes, GERD, hyperlipidemia, hypertension, myocardial infarction Psychiatric history: anxiety, depression - Past Surgical History Surgical History: orthopedic, other - Social History Smoking Status: Current every day smoker Packs per day: 1 Smokeless Tobacco Status: No Alcohol use: none Drug use: none Review of systems: REVIEW OF SYSTEMS: CONSTITUTIONAL: see HPI. HEENT: Eyes: No visual loss, blurred vision, double vision or yellow sclerae. Ears, Nose, Throat: No hearing loss, sneezing, congestion, runny nose or sore throat. SKIN: No rash or itching. CARDIOVASCULAR: No chest pain, chest pressure or chest discomfort. No palpitations or edema. RESPIRATORY: No shortness of breath, cough or sputum. GASTROINTESTINAL: No anorexia, nausea, vomiting or diarrhea. No abdominal pain or blood. GENITOURINARY: No dysuria, urgency, or frequency. NEUROLOGICAL: No headache, dizziness, syncope, paralysis, ataxia, numbness or tingling in the extremities. No change in bowel or bladder control. MUSCULOSKELETAL: see HPI. HEMATOLOGIC: No anemia, bleeding or bruising. LYMPHATICS: No enlarged nodes. No history of splenectomy. PSYCHIATRIC: No history of depression or anxiety. ENDOCRINOLOGIC: No reports of sweating, cold or heat intolerance. No polyuria or polydipsia. Internal Medicine - CN: Exam - Constitutional Vitals: Temp Pulse Resp BP Pulse Ox 98.5 F 87 16 118/73 98 01/06/18 06:50 01/06/18 06:50 01/06/18 06:50 01/06/18 06:50 01/06/18 06:50 General appearance IM: Present: A&O X 3 Exam: PHYSICAL EXAMINATION: GENERAL APPEARANCE: The patient is alert, oriented and in no acute distress. HEENT: Head is normocephalic. The sinuses are nontender. Pupils are equal and reactive. The nares are patent. Oropharynx clear without lesions. NECK: Supple without lymphadenopathy. HEART: Regular rate and rhythm. LUNGS: No crackles or wheezes are heard. ABDOMEN: Soft, nontender, nondistended with good bowel sounds heard. Inguinal area is normal. EXTREMITIES: left knee surgical dressing. NEUROLOGICAL: Gross nonfocal. SKIN: Warm and dry without any rash. Internal Medicine - CN: Reslt - Labs CBC & Chem 7: 01/06/18 00:58 01/06/18 00:58 Labs: Short CBC 01/06/18 Range/Units 00:58 Hgb 10.3 L (12.9-16.9) g/dL Hct 31.8 L (37.5-50.1) % BMP 01/06/18 00:58 Sodium 136 Potassium 4.3 Chloride 102 Carbon Dioxide 28 BUN 44 H Creatinine 2.05 H Glucose 71 Calcium 8.5 L
[2018-01-06] MEDS: *HR* OxyCODONE/APAP 5/325 TABLET PO PRN ×3 (09:00→21:40)
[2018-01-06 09:27] LABS: Magnesium 1.9 mg/dL (1.6-2.6)
[2018-01-06 09:41] LABS: Thyroid Stimulating Hormone 2.171 mcIU/mL (0.340-5.600)
--- NOTE | 2018-01-06 11:45 | Nephrology Consult Note ---
Date of Encounter: 01/06/18 Time of Encounter: 11:40 Assessment and Plan (1) Acute kidney injury Current Visit: Yes Status: Acute Labs ordered for LESLIE/CKD work up. Avoid Nephrotoxins. (2) Status post total knee replacement, left Current Visit: Yes Status: Acute Per ortho team. (3) Atrial fibrillation Current Visit: No Status: Acute Per primary team. Qualifiers: Atrial fibrillation type: unspecified Qualified Code(s): I48.91 - Unspecified atrial fibrillation History of Present Illness - Reason for Consult Acute Kidney Injury, Chronic Kidney Disease - History of Present Illness Mr. Spears is a 72 year old male with recent hospitalization for left knee replacement on 01/04/18. PMH: Afib, CAD, DM, Gerd, HLd, HTN, and WI. Nephrology was consulted for worsening Scr for LESLIE. Labs are limited at this point, and it is slightly unclear if he doctor's with a School Aide. He denies, but also states his memory is not right sometimes. LESLIE may be from recent surgery or worsening from his baseline. Prior to hospitalization patient denies any nausea, vomiting, diarrhea. Any chronic NSAID use. Patient is on a large dose of Gabapentin at home, which can worsen kidney function. Admits to some difficulty urinating before hospitalization, his PCP obtained a UA which he reports did some some blood. I am unable to access this report, and will repeat the test today. Past Med Surg Social Fam HX - Past Medical History Medical history: atrial fibrillation, coronary artery disease, diabetes, GERD, hyperlipidemia, hypertension, myocardial infarction Psychiatric history: anxiety, depression - Past Surgical History Surgical History: orthopedic, other - Social History Smoking Status: Current every day smoker Packs per day: 1 Smokeless Tobacco Status: No Alcohol use: none Drug use: none Medications and Allergies OxyCODONE Immed Rel [Roxicodone 5 MG] 5 mg PO Q6HR PRN 7 Days #28 tablet [Rx] Albuterol Sulfate [Ventolin Hfa] 2 puff IH Q4-6H PRN 01/03/18 [History] Apixaban [Eliquis] 5 mg PO BID 01/03/18 [History] Carvedilol 12.5 mg PO BID 01/03/18 [History] Furosemide [Lasix] 40 mg PO DAILY 01/03/18 [History] HYDROcodone/Acet 5/325 mg [[place] 5-325 mg] 1 tab PO Q6H PRN 01/03/18 [History] Insulin ASPART [NovoLOG] 10 unit SQ TIDWM 01/03/18 [History] Insulin DETEMIR [Levemir] 50 unit SQ HS 01/03/18 [History] Lisinopril [Zestril] 10 mg PO DAILY 01/03/18 [History] Sertraline [Zoloft] 100 mg PO DAILY 01/03/18 [History] Simvastatin [Zocor] 20 mg PO HS 01/03/18 [History] clonazePAM [Klonopin] 0.5 mg PO HS PRN 01/03/18 [History] 3 Allergy/AdvReac Type Severity Reaction Status Date / Time acetaminophen Allergy Hives Verified 01/03/18 12:27 [From Darvocet-N 100] propoxyphene Allergy Hives Verified 01/03/18 12:27 [From Darvocet-N 100] Review of Systems Constitutional: no anorexia, no chills, no fatigue Nose, mouth and throat: no dry mouth Cardiovascular: edema (admits to mild. ), no chest pain at rest Respiratory: no cough Gastrointestinal: no change in bowel habits Genitourinary Male: as per HPI, difficulty urinating, post void dribbling, urinary frequency, urinary hesitancy, urinary incontinence Exam - Vital Signs Vital signs: Initial Vital Signs Temp Pulse Resp BP Pulse Ox 98.0 F 94 18 142/81 99 01/03/18 11:12 01/03/18 11:12 01/03/18 11:12 01/03/18 11:12 01/03/18 11:12 Vital Signs - Last 8 Hours Temp Pulse Resp BP Pulse Ox 01/06/18 06:50 98.5 F 87 16 118/73 98 01/06/18 05:30 98.4 F 93 18 115/67 96 Intake and Output 01/05/18 01/06/18 01/06/18 23:59 07:59 15:59 Intake Total 500 / 500 Output Total 300 / 300 100 / 100 Balance -300 / -300 -100 / -100 500 / 500 Intake: IV Fluids 500 / 500 0.9 % Sodium Chloride 500 ML @ 500 / 500 1875 mls/hr IVC .Q16M ONE Rx#: [id number] Output: Urine 300 / 300 100 / 100 Other: # Voids 1 Weight 140.9 kg Blood Glucose* 115 63 Patient Weight 01/06/18 23:59 Weight 140.9 kg - General Appearance General appearance: obese, chronically ill EENT: ATNC, hearing intact, vision intact Neck: supple Cardiology: edema (Trace pitting edema to bilat lower extremities. ), irregular rhythm, normal S1, normal S2 Gastrointestinal: normoactive bowel sounds, no tenderness, no guarding Integumentary: no rash, warm and dry Neurologic: alert and oriented x3 Additional Comments: Swelling and limited ROM to left lower extremity, due to recent surgery. Psychiatric: mood/affect appropriate, cooperative Results - Lab Results 01/06/18 00:58 01/06/18 00:58 Most recent lab results Calcium 8.5 mg/dL (8.6-10.3) L 01/06/18 00:58 Magnesium 1.9 mg/dL (1.6-2.6) 01/06/18 08:44 Consult Discharge Plan - Plan Referrals: Ange Rogel, [facility] [Primary Care Provider] -
[2018-01-06 13:17] LABS: Bilirubin,Urine Negative (Negative); Blood,Urine Negative (Negative); Color,Urine Yellow (Yellow); Glucose,Urine (UA) Normal (Normal); Ketones,Urine Negative (Negative); Leukocyte Esterase,Urine Negative (Negative); Nitrite,Urine Negative (Negative); Protein,Urine Negative (Neg-Trace); Urobilinogen,Urine Normal (Normal)
[2018-01-06 13:20] LABS: Clarity,Urine Slightly Hazy (Clear)
[2018-01-06 14:21] LABS: Sodium, Urine 25.1 mEq/L
[2018-01-06 15:36] LABS: Hepatitis B Surface Antigen Nonreactive (Nonreactive)
--- NOTE | 2018-01-06 15:58 | Event Note ---
Date of Encounter: 01/06/18 Time of Encounter: 12:30 PCR - POD#3 Left TKR Patient seen at bedside. Comfortable. He reports incontinence which is new, but a history of retention and possibly BPH. He also has elevated uric acid levels. Anticoagulated with Eliquis - resumed Wednesday. POD#1 - Hypotension - improved with Bolus and continued IV fluids. Continue telemetry fro A.Fib. Labs reviewed. - Concern for worsening of sCr, BUN and GFR - Hospitalist and Nephrology consulted. I was able to obtain his baseline labs from outside facility - this appears to be an acute kidney injury versus Chronic - labs faxed to [facility] and are as follows: 12/27/17 Cr: 1.11 eGFR: 66 BUN: 16 BUN/Cre: 14 Potassium: 4.2 Sodium: 139 UA 12/27 Results: Trace Occult Blood +Hyaline Casts Pain control: Chronic pain - [place] 5/325 QID on hold. Limited, but Participating in PT. All questions and concerns addressed. Educated on use of incentive spirometer. Encouraged ambulation and proper hydration. Patient educated on post-operative restrictions and post-operative care. Addressed: New onset kidney injury - Nephrology following. Discharge plan: ECF GF once deemed medically stable.
[2018-01-06] MEDS: Insulin DETEMIR 100 UNIT/ML X5UNITS SQ SCH (21:41)
[2018-01-07 01:12] LABS: Basophils % 0.1 %; Eosinophils # 0.1 K/mcL (0.0-0.6); Eosinophils % 1.5 %; Hematocrit 28.2 % (37.5-50.1); Hemoglobin 9.3 g/dL (12.9-16.9); Immature Granulocytes % 0.7 % (0-4); Lymphocytes # 1.1 K/mcL (0.6-4.6); Lymphocytes % 13.1 %; Mean Corpuscular Hemoglobin 31.1 pg (28.0-33.3); Mean Corpuscular Volume 94.3 fL (83.0-100.0); Mean Platelet Volume 12.1 fL (9.4-12.4); Monocytes # 1.1 K/mcL (0.0-1.3); Neutrophils # 6.2 K/mcL (1.6-8.9); Platelet Count 138 K/mcL (140-400); Red Blood Count 2.99 M/mcL (4.19-5.50); Red Cell Distribution Width 13.8 % (11.5-14.5); Segmented Neutrophils % 71.6 %
[2018-01-07 01:33] LABS: Calcium 8.2 mg/dL (8.6-10.3); Phosphorous 3.8 mg/dL (2.7-4.5); Potassium 4.2 mEq/L (3.5-5.1)
[2018-01-07 02:38] LABS: Hepatitis A Antibody IgM Nonreactive (Nonreactive); Hepatitis B Core IgM Nonreactive (Nonreactive); Hepatitis C Virus Antibody Nonreactive (Nonreactive)
[2018-01-07] MEDS: *HR* OxyCODONE/APAP 5/325 TABLET PO PRN ×2 (04:15→08:25)
--- NOTE | 2018-01-07 08:15 | Orthopedics Progress Note ---
Date of Encounter: 01/07/18 Time of Encounter: 08:15 - Assessment and Plan (1) Morbid obesity with BMI of 40.0-44.9, adult Current Visit: Yes Status: Chronic (2) Arthritis of knee, left Current Visit: No Status: Chronic (3) Status post total knee replacement, left Current Visit: Yes Status: Acute (4) Atrial fibrillation Current Visit: No Status: Acute Qualifiers: Atrial fibrillation type: unspecified Qualified Code(s): I48.91 - Unspecified atrial fibrillation (5) CAD (coronary artery disease) Current Visit: No Status: Chronic Qualifiers: Coronary Disease-Associated Artery/Lesion type: unspecified vessel or lesion type [place] vs. transplanted heart: unspecified whether [place] or transplanted heart Associated angina: angina presence unspecified Qualified Code(s): I25.10 - Atherosclerotic heart disease of [place] coronary artery without angina pectoris (6) HTN (hypertension) Current Visit: No Status: Chronic Qualifiers: Hypertension type: essential hypertension Qualified Code(s): I10 - Essential (primary) hypertension (7) DMII (diabetes mellitus, type 2) Current Visit: No Status: Chronic Qualifiers: Diabetes mellitus prison insulin use: unspecified prison insulin use status Diabetes mellitus complication status: with unspecified complications Qualified Code(s): E11.8 - Type 2 diabetes mellitus with unspecified complications (8) Asthma Current Visit: No Status: Chronic Qualifiers: Asthma severity: unspecified severity Asthma persistence: unspecified Asthma complication type: unspecified Qualified Code(s): J45.909 - Unspecified asthma, uncomplicated (9) Chronic pain Current Visit: No Status: Chronic Qualifiers: Chronic pain type: other chronic pain Qualified Code(s): G89.29 - Other chronic pain (10) Anxiety Current Visit: No Status: Chronic (11) Acute kidney injury Current Visit: Yes Status: Acute Subjective Interval history: Patient was seen this morning doing well without complaints. Afebrile vital signs stable. Operative extremity: Neurovascularly intact Dressing clean dry and intact [place] nontender Assessment and plan: Continue with postoperative care Nephrology consult appreciated creatinine 2.14 today we will await the recommendations. Objective Vital signs: Vital Signs Temp Pulse Resp BP Pulse Ox 01/07/18 07:54 98.8 F 99 16 103/66 93 01/07/18 03:39 99.5 F 105 16 116/75 98 01/07/18 00:48 98.8 F 106 18 110/67 96 01/06/18 20:32 98.6 F 91 16 95/53 96 01/06/18 10:19 98.3 F 92 16 123/76 95 Intake and Output 01/06/18 01/07/18 01/07/18 23:59 07:59 15:59 Output Total 450 / 450 400 / 400 Balance -450 / -450 -400 / -400 Output: Urine 450 / 450 400 / 400 Other: Blood Glucose* 173 145 - Labs CBC & BMP: 01/07/18 00:47 01/07/18 00:47 Labs: Abnormal lab results RBC 2.99 M/mcL (4.19-5.50) L 01/07/18 00:47 Hgb 9.3 g/dL (12.9-16.9) L 01/07/18 00:47 Hct 28.2 % (37.5-50.1) L 01/07/18 00:47 Plt Count 138 K/mcL (140-400) L 01/07/18 00:47 Sodium 135 mEq/L (136-145) L 01/07/18 00:47 BUN 52 mg/dL (8-23) H 01/07/18 00:47 Creatinine 2.14 mg/dL (0.70-1.30) H 01/07/18 00:47 Est GFR ( Amer) 37 (> 60) L 01/07/18 00:47 Est GFR (Non-Af Amer) 30 (> 60) L 01/07/18 00:47 Glucose 123 mg/dL (70-105) H 01/07/18 00:47 POC Glucose 145 mg/dL (70-99) H 01/07/18 07:59 Uric Acid 8.2 mg/dL (2.3-7.6) H 01/06/18 14:33 Calcium 8.2 mg/dL (8.6-10.3) L 01/07/18 00:47 - VTE Documentation of Mechanical Device: Venous foot pump, device Consult Discharge Plan - Plan Referrals: Ange Rogel, NOC ENGINEER [Primary Care Provider] -
[2018-01-07] MEDS: Apixaban 5 MG TABLET PO SCH ×2 (08:17→20:17)
[2018-01-07] MEDS: Gabapentin 300 MG CAPSULE PO SCH ×3 (08:18→20:17)
[2018-01-07] MEDS: Insulin LISPRO 300 UNITS/3 ML VIAL SQ SCH ×7 (08:18→21:48)
--- NOTE | 2018-01-07 11:52 | Nephrology Progress Note ---
Date of Encounter: 01/07/18 Time of Encounter: 11:42 - Assessment and Plan (1) Acute kidney injury Current Visit: Yes Status: Acute Medical records from [facility] arrived to the floor today and were reviewed. Patient with eGFR of 66 with unremarkable urinalysis 12/27/2016. Patient has worsening renal function of unclear etiology. At this time it appears that his baseline renal function is relatively normal. The patient is nonoliguric. After talking with him today for next and appear to time he did admit to taking several doses of ibuprofen prior to coming in for surgery, but he reports only taking 3 or 4 pills a week before he came in. He denies nausea vomiting. He states he has at the sides of diarrhea, but nothing out of the ordinary for him. He denies any rashes. He did not notice any dysuria or hematuria prior to coming into the hospital. His repeat urinalysis is unremarkable and his urine eosinophils was negative. Etiology of this time remains elusive as his only nephrotoxins were lisinopril and furosemide and these were discontinued. Reviewing his vital signs reveals several episodes where his systolic blood pressure was below 100, but these seem to be episodic and not sustained. I am somewhat concerned about the presence of this atypical chest discomfort which is likely muscular skeletal as he describes the worst chest discomfort whenever he pulls himself up from a sitting position. The chest discomfort is left parasternal and reproducible. As I was talking to him he also describes another chest discomfort which is episodic more overpressure, and occurs when he is sitting down and he first noticed it about 4-6 weeks ago. He states he has had a stress test in the past but thinks it was more than 2 years ago. He denies a history of a cardiac catheterization. He had an echo cardiogram last June which by report was normal. At this time I recommend getting an echocardiogram to evaluate his ejection fraction and to see if there has been any change in his echocardiogram. I would have a low threshold for ordering troponins if any chest discomfort recurs. I also recommend giving additional intravenous fluids. I will check a CPK level as well. (2) Status post total knee replacement, left Current Visit: Yes Status: Acute Per primary team (3) Atrial fibrillation Current Visit: No Status: Acute Rate is controlled. Qualifiers: Atrial fibrillation type: unspecified Qualified Code(s): I48.91 - Unspecified atrial fibrillation (4) HTN (hypertension) Current Visit: No Status: Chronic Patient's blood pressure is relatively low. Will hold antihypertensive for sbp less than 100. He may need alternate control of his afib if unable to tolerate beta linda. Qualifiers: Hypertension type: essential hypertension Qualified Code(s): I10 - Essential (primary) hypertension (5) DMII (diabetes mellitus, type 2) Current Visit: No Status: Chronic Per primary team. Qualifiers: Diabetes mellitus engineer steam insulin use: unspecified residential insulin use status Diabetes mellitus complication status: with unspecified complications Qualified Code(s): E11.8 - Type 2 diabetes mellitus with unspecified complications (6) Morbid obesity with BMI of 40.0-44.9, adult Current Visit: Yes Status: Chronic outpatient management. (7) Hypocalcemia Current Visit: Yes Status: Acute check pth and vitamin d level. (8) Anemia Current Visit: Yes Status: Acute check iron stores, vitamin b12 and folate. This is likely post op anemia and dilutional as his pre hospital hgb was normal. Qualifiers: Qualified Code(s): D64.9 - Anemia, unspecified Subjective Principal diagnosis: LESLIE on CKD. Objective - Vital Signs Vital signs: Vital Signs Temp Pulse Resp BP Pulse Ox 01/07/18 08:34 93 01/07/18 07:54 98.8 F 99 16 103/66 93 01/07/18 03:39 99.5 F 105 16 116/75 98 01/07/18 00:48 98.8 F 106 18 110/67 96 01/06/18 20:32 98.6 F 91 16 95/53 96 Intake and Output 01/06/18 01/07/18 01/07/18 23:59 07:59 15:59 Intake Total 240 / 240 Output Total 450 / 450 400 / 400 Balance -450 / -450 -400 / -400 240 / 240 Intake: Oral 240 / 240 Output: Urine 450 / 450 400 / 400 Other: Meal Breakfast Percent of Meal Consumed 100% Blood Glucose* 173 145 - General Appearance General appearance: Present: well-developed, well-nourished, obese EENT: Present: ATNC Neck: Present: supple Respiratory: Present: course breath sounds Cardiology: Present: edema (1+ edema in left lower leg. no edema in right leg. ), regular rate, regular rhythm Gastrointestinal: Present: no tenderness, obese Integumentary: Present: warm and dry Neurologic: Present: alert and oriented x3 Musculoskeletal: Present: no cyanosis Psychiatric: Present: mood/affect appropriate - Lab 01/07/18 00:47 01/07/18 00:47 Most recent lab results Calcium 8.2 mg/dL (8.6-10.3) L 01/07/18 00:47 Phosphorus 3.8 mg/dL (2.7-4.5) 01/07/18 00:47 Magnesium 2.0 mg/dL (1.6-2.6) 01/07/18 00:47 Urine Creatinine 111 mg/dL 01/06/18 12:55 Urine Sodium 25.1 mEq/L 01/06/18 12:55 - VTE Documentation of Mechanical Device: Venous foot pump, device Consult Discharge Plan - Plan Referrals: Ange Rogel, INTERNAL CONSULTANT [Primary Care Provider] -
[2018-01-07] MEDS ORDERED: 0.9 % Sodium Chloride 1,000 ML IVC SCH (12:00)
[2018-01-07] MEDS: *HR* OxyCODONE Immed Rel 5 MG TABLET PO PRN ×2 (12:30→23:32)
--- NOTE | 2018-01-07 13:35 | Event Note ---
Date of Encounter: 01/07/18 Time of Encounter: 13:33 PCR - POD#4 Left TKR Patient seen at bedside. Comfortable. H Anticoagulated with Eliquis - resumed Wednesday. POD#1 - Hypotension - improved with Bolus and continued IV fluids. Continue telemetry fro A.Fib. Labs reviewed. - Concern for worsening of sCr, BUN and GFR - Hospitalist and Nephrology consulted. Also - due to concern for hypoperfusion - Cardiac now consulted, awaiting ECHO I was able to obtain his baseline labs from outside facility - this appears to be an acute kidney injury versus Chronic - labs faxed to [facility] and are as follows: 12/27/17 Cr: 1.11 eGFR: 66 BUN: 16 BUN/Cre: 14 Potassium: 4.2 Sodium: 139 UA 12/27 Results: Trace Occult Blood +Hyaline Casts Pain control: Chronic pain - [place] 5/325 QID on hold. Limited, but Participating in PT. All questions and concerns addressed. Educated on use of incentive spirometer. Encouraged ambulation and proper hydration. Patient educated on post-operative restrictions and post-operative care. Addressed: New onset kidney injury - Nephrology following. Cardiac on board. Discharge plan: ECF GF once deemed medically stable.
--- NOTE | 2018-01-07 17:12 | Internal Med Progress Note ---
<Heather Mccurdy - Last Filed: 01/07/18 18:49> Date of Encounter: 01/07/18 - Assessment and plan (1) Arthritis of knee, left Current Visit: No Status: Chronic (2) Status post total knee replacement, left Current Visit: Yes Status: Acute (3) Atrial fibrillation Current Visit: No Status: Acute Qualifiers: Atrial fibrillation type: unspecified Qualified Code(s): I48.91 - Unspecified atrial fibrillation (4) CAD (coronary artery disease) Current Visit: No Status: Chronic Qualifiers: Coronary Disease-Associated Artery/Lesion type: unspecified vessel or lesion type [place] vs. transplanted heart: unspecified whether [place] or transplanted heart Associated angina: angina presence unspecified Qualified Code(s): I25.10 - Atherosclerotic heart disease of [place] coronary artery without angina pectoris (5) HTN (hypertension) Current Visit: No Status: Chronic Qualifiers: Hypertension type: essential hypertension Qualified Code(s): I10 - Essential (primary) hypertension (6) DMII (diabetes mellitus, type 2) Current Visit: No Status: Chronic Qualifiers: Diabetes mellitus [facility] insulin use: unspecified [facility] insulin use status Diabetes mellitus complication status: with unspecified complications Qualified Code(s): E11.8 - Type 2 diabetes mellitus with unspecified complications (7) Asthma Current Visit: No Status: Chronic Qualifiers: Asthma severity: unspecified severity Asthma persistence: unspecified Asthma complication type: unspecified Qualified Code(s): J45.909 - Unspecified asthma, uncomplicated (8) Acute on chronic renal failure Current Visit: Yes Status: Acute Qualifiers: Acute renal failure type: unspecified Chronic kidney disease stage: stage 3 (moderate) Qualified Code(s): N17.9 - Acute kidney failure, unspecified; N18.3 - Chronic kidney disease, stage 3 (moderate); N18.3 - Chronic kidney disease, stage 3 (moderate) (9) Weakness Current Visit: Yes Status: Acute - Time Spent With Patient Total time spent is greater than 50% in coordination of care (as documented) at patient's floor/unit and/or counseling patient: - Constitutional Vitals: Temp Pulse Resp BP Pulse Ox 98.6 F 110 17 106/69 93 01/07/18 16:31 01/07/18 16:31 01/07/18 16:31 01/07/18 16:31 01/07/18 16:31 Internal Medicine: Result - Labs CBC & Chem 7: 01/07/18 00:47 01/07/18 00:47 Labs: Short CBC 01/07/18 Range/Units 00:47 WBC 8.6 (4.3-11.1) K/mcL Hgb 9.3 L (12.9-16.9) g/dL Hct 28.2 L (37.5-50.1) % Plt Count 138 L (140-400) K/mcL Neutrophils # 6.2 (1.6-8.9) K/mcL BMP 01/07/18 00:47 Sodium 135 L Potassium 4.2 Chloride 101 Carbon Dioxide 26 BUN 52 H Creatinine 2.14 H Glucose 123 H Calcium 8.2 L Consult Discharge Plan - Plan Referrals: Ange Rogel, [employer] [employer] [Primary Care Provider] - - Attending Attestation I performed a history and physical examination of the patient and discussed his/ her management with the resident. I reviewed the residents note and agree with the documented findings and plan of care. <Abimbola Bucio - Last Filed: 01/07/18 20:19> Date of Encounter: 01/07/18 Time of Encounter: 08:35 - Assessment and plan (1) Acute on chronic renal failure Current Visit: Yes Status: Acute Assessment and plan: - Creatinine 1.84 on admission and 2.14 this morning, BUN has been elevated-- likely pre-renal cause - Labs from outside facility 12/27/17 show SCr 1.11, eGFR 66 - Continue to hold Lasix and JIMMY inhibitor for now - Continue IV fluids - Use renal dosing and avoid nephrotoxins - Nephrology following Qualifiers: Acute renal failure type: unspecified Chronic kidney disease stage: stage 3 (moderate) Qualified Code(s): N17.9 - Acute kidney failure, unspecified; N18.3 - Chronic kidney disease, stage 3 (moderate); N18.3 - Chronic kidney disease, stage 3 (moderate) (2) Atrial fibrillation Current Visit: No Status: Acute Assessment and plan: - Rate controlled, 80-100 - continue Eliquis. Qualifiers: Atrial fibrillation type: unspecified Qualified Code(s): I48.91 - Unspecified atrial fibrillation (3) CAD (coronary artery disease) Current Visit: No Status: Chronic Assessment and plan: - Continue simvastatin Qualifiers: Coronary Disease-Associated Artery/Lesion type: unspecified vessel or lesion type [place] vs. transplanted heart: unspecified whether [place] or transplanted heart Associated angina: angina presence unspecified Qualified Code(s): I25.10 - Atherosclerotic heart disease of [place] coronary artery without angina pectoris (4) HTN (hypertension) Current Visit: No Status: Chronic Assessment and plan: -hold antihypertensives as SBP in 90's Qualifiers: Hypertension type: essential hypertension Qualified Code(s): I10 - Essential (primary) hypertension (5) DMII (diabetes mellitus, type 2) Current Visit: No Status: Chronic Assessment and plan: Insulin sliding scale Levemir 30 units @ bedtime Qualifiers: Diabetes mellitus senior operations analyst insulin use: unspecified senior operations analyst insulin use status Diabetes mellitus complication status: with unspecified complications Qualified Code(s): E11.8 - Type 2 diabetes mellitus with unspecified complications (6) Asthma Current Visit: No Status: Chronic Assessment and plan: Currently asymptomatic Continue PRN albuterol inhaler Qualifiers: Asthma severity: unspecified severity Asthma persistence: unspecified Asthma complication type: unspecified Qualified Code(s): J45.909 - Unspecified asthma, uncomplicated (7) Weakness Current Visit: Yes Status: Acute Assessment and plan: Etiology likely multifactorial: Recent surgery and impaired daily activity. - Continue PT/OT - Magnesium, TSH within normal limits (8) Status post total knee replacement, left Current Visit: Yes Status: Acute Assessment and plan: - Orthopedics following. (9) Arthritis of knee, left Current Visit: No Status: Chronic - Time Spent With Patient Total time spent is greater than 50% in coordination of care (as documented) at patient's floor/unit and/or counseling patient: - Subjective Interval history: Pt seen and examined this morning at bedside. He is seated in his bedside chair watching tv. He complains of pain in his left knee and feels like his whole leg is swollen. Pt also reports low back pain, but states that this is his usual, chronic, low back pain. He denies fever, chills, chest pain, shortness of breath , abdominal pain. - Constitutional Vitals: Temp Pulse Resp BP Pulse Ox 98.6 F 110 17 106/69 93 01/07/18 16:31 01/07/18 16:31 01/07/18 16:31 01/07/18 16:31 01/07/18 16:31 General appearance: Present: A&O X 3 Exam: General: well nourished, well developed, No acute distress, HEENT: head normocephalic/atraumatic, EOMI, PERRL, moist mucus membranes, Neck: Supple, FROM Cardio: irregular rhythm, no tachycardia, no murmurs, +S1/S2 Pulm: CTAB, no wheezing or rhonchi, Normal respiratory effort. Abdomen: soft, nontender, BS+ Extremities: LLE swelling, surgical site covered, no erythema, no Neuro: AAOx3, no focal deficit, mentation intact, equal sensation in lower extremities Skin: surgical site is clean, dry and intact, no erythema, no drainage from site Psych: Answers questions appropriately. Cooperative with exam Internal Medicine: Result - Labs CBC & Chem 7: 01/07/18 00:47 01/07/18 00:47 Labs: Short CBC 01/07/18 Range/Units 00:47 WBC 8.6 (4.3-11.1) K/mcL Hgb 9.3 L (12.9-16.9) g/dL Hct 28.2 L (37.5-50.1) % Plt Count 138 L (140-400) K/mcL Neutrophils # 6.2 (1.6-8.9) K/mcL BMP 01/07/18 00:47 Sodium 135 L Potassium 4.2 Chloride 101 Carbon Dioxide 26 BUN 52 H Creatinine 2.14 H Glucose 123 H Calcium 8.2 L - Impressions Impressions Retroperitoneum Ultrasound 01/06/18 16:00 IMPRESSION: Unremarkable ultrasound of the kidneys and urinary bladder. D/ / Kamari See MD / Kamari See MD Interpreting Provider: Kamari See MD - VTE Documentation of Mechanical Device: Venous foot pump, device
--- NOTE | 2018-01-07 19:18 | Electrocardiograph Report ---
[place] [id number] Test Date: 2018-01-05 Pat Name: Mark Spears Department: 114 Room: [facility] Gender: M [employer]: : 1945 Requested By: Catherine Lee Order Number: [id number] Reading MD: Trish Brito Measurements Intervals [place] Rate: 79 P: AR: 0 QRS: 1 QRSD: 91 T: 15 QT: 341 QTc: 375 Interpretive Statements ATRIAL FIBRILLATION LOW QRS VOLTAGE PATTERN CONSISTENT WITH PULMONARY DISEASE Electronically Signed On 01-07-2018 19:17:21 EDT by Trish Brito
[2018-01-07] MEDS: Ringers Solution, Lactated 1,000 ML IVC SCH ×4 (19:51→19:54)
[2018-01-07] MEDS ORDERED: Perflutren Lipid Microsphere 2 ML VIAL ONE (19:55)
[2018-01-07] MEDS: Insulin DETEMIR 100 UNIT/ML X5UNITS SQ SCH (21:49)
[2018-01-08 01:40] LABS: Basophils % 0.1 %; Eosinophils # 0.2 K/mcL (0.0-0.6); Eosinophils % 2.3 %; Hematocrit 26.5 % (37.5-50.1); Hemoglobin 8.7 g/dL (12.9-16.9); Immature Granulocytes % 0.3 % (0-4); Lymphocytes # 1.1 K/mcL (0.6-4.6); Lymphocytes % 13.5 %; Mean Corpuscular HGB Conc 32.8 g/dL (31.6-35.5); Mean Corpuscular Hemoglobin 31.1 pg (28.0-33.3); Mean Corpuscular Volume 94.6 fL (83.0-100.0); Mean Platelet Volume 12.2 fL (9.4-12.4); Monocytes # 0.8 K/mcL (0.0-1.3); Monocytes % 10.4 %; Neutrophils # 5.9 K/mcL (1.6-8.9); Platelet Count 147 K/mcL (140-400); Red Cell Distribution Width 13.5 % (11.5-14.5); Segmented Neutrophils % 73.4 %
[2018-01-08 01:58] LABS: Calcium 8.1 mg/dL (8.6-10.3); Potassium 4.2 mEq/L (3.5-5.1)
[2018-01-08 02:02] LABS: % Iron Saturation 7 % (20-55); Creatine Kinase 65 Units/L (30-223); Ferritin 170 ng/ml (20-250); Iron 18 mcg/dL (65-175); Transferrin 196 mg/dL (203-362)
[2018-01-08 02:24] LABS: Folate 11.5 ng/mL (3.0-16.0)
[2018-01-08] MEDS: Ringers Solution, Lactated 1,000 ML IVC SCH ×2 (03:02→19:33)
[2018-01-08] MEDS: *HR* OxyCODONE Immed Rel 5 MG TABLET PO PRN ×2 (03:18→08:21)
[2018-01-08] MEDS: *HR* OxyCODONE/APAP 5/325 TABLET PO PRN (05:46)
[2018-01-08] MEDS: Gabapentin 300 MG CAPSULE PO SCH ×2 (08:21→22:30)
[2018-01-08] MEDS: Apixaban 5 MG TABLET PO SCH ×2 (08:21→22:30)
[2018-01-08] MEDS: Insulin LISPRO 300 UNITS/3 ML VIAL SQ SCH ×4 (08:22→23:04)
[2018-01-08] MEDS ORDERED: 0.9 % Sodium Chloride 1,000 ML IVC SCH (09:45)
--- NOTE | 2018-01-08 10:18 | Cardiology Consult Note ---
Date of Encounter: 01/08/18 Time of Encounter: 09:00 Assessment and Plan (1) Chest pain Current Visit: Yes Status: Acute Chest discomfort atypical for angina, likely musculoskeletal in etiology. However, does have multiple risk factors for CAD. No known history of CAD per pt. Would recommend outpatient f/u with primary income auditor, Dr. Summers. Consider outpatient stress test. Echocardiogram with normal LV function, no significant valvular heart disease. Qualifiers: Chest pain type: other chest pain Qualified Code(s): R07.89 - Other chest pain; R07.8 - Other chest pain (2) Status post total knee replacement, left Current Visit: Yes Status: Acute Per primary service. (3) Atrial fibrillation Current Visit: Yes Status: Chronic Currently rate controlled, anticoagulated. Continue carvedilol, Eliquis. 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 Echocardiogram with normal LV function, EF 55%, no valvular heart disease. Discussion w patient/family: The assessment and plan as outlined above was discussed with the patient and/or family members who expressed understanding and agreement. All questions were answered. Thank you for involving us in the care of your patient. Please call with any questions. History of Present Illness Consult date: 01/08/18 Requesting physician: Catherine Lee Chief complaint: chest pain History of present illness: Mr. Spears is a 72 year old male with chronic atrial fibrillation, DM, HTN, tobacco use, morbid obesity currently hospitalized for L knee replacement on . Postop course complicated by LESLIE. Having intermittent chest discomfort when tries to pull himself up in bed using upper body. Denies associated SOB, nausea, diaphoresis. No CP while at rest or when working with PT. Denies CP currently. Has had intermittent chest pressure in past- follows with Dr. Summers as his primary income auditor. Has had stress tests in past- unsure when last one was, but was told wnl. No history of CAD or prior cardiac catheterizations per pt. Has known history of a fib and has had 2 DCCV per pt. Currently rate controlled with carvedilol and anticoagulated with Eliquis. EKG demonstrates a fib with controlled VR with HR 79bpm. Echocardiogram yesterday demonstrates EF 55%, left atrial enlargement, no significant valvular heart disease. Past Med Surg Social Fam HX - Past Medical History Medical history: atrial fibrillation, diabetes, GERD, hyperlipidemia, hypertension Psychiatric history: anxiety, depression - Past Surgical History Surgical History: orthopedic, other - Social History Smoking Status: Current every day smoker Packs per day: 1 Smokeless Tobacco Status: No Alcohol use: none Drug use: none Medications and Allergies OxyCODONE Immed Rel [Roxicodone 5 MG] 5 mg PO Q6HR PRN 7 Days #28 tablet [Rx] Albuterol Sulfate [Ventolin Hfa] 2 puff IH Q4-6H PRN 01/03/18 [History] Apixaban [Eliquis] 5 mg PO BID 01/03/18 [History] Carvedilol 12.5 mg PO BID 01/03/18 [History] Furosemide [Lasix] 40 mg PO DAILY 01/03/18 [History] HYDROcodone/Acet 5/325 mg [[place] 5-325 mg] 1 tab PO Q6H PRN 01/03/18 [History] Insulin ASPART [NovoLOG] 10 unit SQ TIDWM 01/03/18 [History] Insulin DETEMIR [Levemir] 50 unit SQ HS 01/03/18 [History] Lisinopril [Zestril] 10 mg PO DAILY 01/03/18 [History] Sertraline [Zoloft] 100 mg PO DAILY 01/03/18 [History] Simvastatin [Zocor] 20 mg PO HS 01/03/18 [History] clonazePAM [Klonopin] 0.5 mg PO HS PRN 01/03/18 [History] 3 Allergy/AdvReac Type Severity Reaction Status Date / Time acetaminophen Allergy Hives Verified 01/03/18 12:27 [From Darvocet-N 100] propoxyphene Allergy Hives Verified 01/03/18 12:27 [From Darvocet-N 100] All Systems Review: The remainder of the systems were reviewed and are negative - Cardiovascular Cardiovascular: as per HPI Physical Examination General: Conversant, No Apparent Distress, Other (morbidly obese) HEENT: Atraumatic, Normocephaly, Mucus Membranes Moist Neck: No JVD, Normal carotid pulses Cardiac: Normal S1 and S2, No Murmur, Other (irregularly irregular rhythm) Lungs: Normal Breath Sounds, No Wheeze, Rales, Rhonchi Neuro: Alert and responsive, No focal deficits noted Abdomen: Soft, Non-Tender Musculoskeletal: No Chest Wall Tenderness Extremities: No Clubbing, No Cyanosis (b/l LE edema) Results 01/08/18 00:53 01/08/18 00:53 Lab Results 01/08/18 01/08/18 00:53 00:53 WBC 8.0 Hgb 8.7 L Hct 26.5 L Plt Count 147 Sodium 131 L Potassium 4.2 Chloride 99 Carbon Dioxide 26 BUN 54 H Creatinine 2.15 H Glucose 153 H Calcium 8.1 L - EKG Interpretation EKG results cardiology: personally reviewed (a fib with controlled VR) Consult Discharge Plan - Plan Referrals: Ange Rogel, [employer]OR[employer]IVER [Primary Care Provider] -
[2018-01-08] MEDS: Cyanocobalamin (B-12) 1,000 MCG TABLET PO SCH (10:54)
--- NOTE | 2018-01-08 10:54 | Nephrology Progress Note ---
Date of Encounter: 01/08/18 Time of Encounter: 10:52 - Assessment and Plan (1) Acute kidney injury Current Visit: Yes Status: Acute Medical records from [facility] arrived to the floor and were reviewed 01/07/18. Patient with eGFR of 66 with unremarkable urinalysis 12/27/2016. Patient has worsening renal function of unclear etiology. His baseline renal function is relatively normal. The patient is nonoliguric. After talking with him 01/07/18 he did admit to taking several doses of ibuprofen prior to coming in for surgery, but he reports only taking 3 or 4 pills the week before he came in. He denies nausea vomiting. He states he has occasional episodes diarrhea, but nothing out of the ordinary for him. He denies any rashes. He did not notice any dysuria or hematuria prior to coming into the hospital. His repeat urinalysis is unremarkable and his urine eosinophils was negative. Etiology of this time remains elusive but likely hemodynamic as his only nephrotoxins were lisinopril and furosemide and these were discontinued. Reviewing his vital signs reveals several episodes where his systolic blood pressure was below 100, but these seem to be episodic and not sustained. I am somewhat concerned about the presence of this atypical chest discomfort which is likely muscular skeletal as he describes the worst chest discomfort whenever he pulls himself up from a sitting position. The chest discomfort is left parasternal and reproducible. As I was talking to him he also describes another chest discomfort which is episodic more of a pressure, and occurs when he is sitting down and he first noticed it about 4-6 weeks ago. He states he has had a stress test in the past but thinks it was more than 2 years ago. He denies a history of a cardiac catheterization. He had an echo cardiogram last June which by report was normal. 12/29/2017. - Echocardiogram was unremarkable. Renal function is stable and may be more hemodynamic. Work-up so far is not revealing a cause. Will give another liter of saline and follow for improvement. (2) Status post total knee replacement, left Current Visit: Yes Status: Acute Per primary team. Erythema may be post surgical inflammation. WBC normal and he is afebrile. Will defer management to primary team. Demarcate erythematous area. (3) Atrial fibrillation Current Visit: Yes Status: Chronic Rate is controlled. Qualifiers: Atrial fibrillation type: chronic Qualified Code(s): I48.2 - Chronic atrial fibrillation (4) HTN (hypertension) Current Visit: No Status: Chronic Patient's blood pressure is relatively low. Will hold antihypertensive for sbp less than 100. He may need alternate control of his afib if unable to tolerate beta linda. Qualifiers: Hypertension type: essential hypertension Qualified Code(s): I10 - Essential (primary) hypertension (5) DMII (diabetes mellitus, type 2) Current Visit: No Status: Chronic Per primary team. Qualifiers: Diabetes mellitus fci insulin use: unspecified fci insulin use status Diabetes mellitus complication status: with unspecified complications Qualified Code(s): E11.8 - Type 2 diabetes mellitus with unspecified complications (6) Morbid obesity with BMI of 40.0-44.9, adult Current Visit: Yes Status: Chronic outpatient management. (7) Hypocalcemia Current Visit: Yes Status: Acute PTH elevated. Will start vitamin D supplementation. (8) Anemia Current Visit: Yes Status: Acute iron and vitamin b12 are low. Replacement has been started. Qualifiers: Qualified Code(s): D64.9 - Anemia, unspecified Subjective Principal diagnosis: LESLIE on CKD. Interval history: Patient seen and evaluated. No new complaint. ROS stable. He has noticed some redness of his left knee. Objective - Vital Signs Vital signs: Vital Signs Temp Pulse Resp BP Pulse Ox 01/08/18 03:43 98.9 F 104 15 107/70 99 01/07/18 23:58 99.3 F 105 16 135/88 99 01/07/18 21:26 98.6 F 107 15 100/65 100 01/07/18 16:31 98.6 F 110 17 106/69 93 01/07/18 12:19 98.7 F 99 17 106/67 94 Intake and Output 01/07/18 01/08/18 01/08/18 23:59 07:59 15:59 Intake Total 610 / 610 0 / 0 240 / 240 Output Total 400 / 400 225 / 225 Balance 210 / 210 -225 / -225 240 / 240 Intake: IV Fluids 10 / 10 Normal Saline Flush 10 ML @ 0 10 / 10 mls/hr .ROUTE .[facility] Rx#: [id number] Oral 600 / 600 0 / 0 240 / 240 Output: Urine 400 / 400 225 / 225 Other: Meal Dinner Breakfast Percent of Meal Consumed 80% 100% # Voids 1 Weight 147 kg Blood Glucose* 136 177 Patient Weight 01/08/18 23:59 Weight 147 kg - General Appearance General appearance: Present: well-developed, well-nourished, obese EENT: Present: ATNC Respiratory: Present: clear Additional Comments: tachycardic Gastrointestinal: Present: obese Integumentary: Present: warm and dry Additional Comments: Left knee surgical dressing in place. there is some erythema and warmth around the medial aspect of the left knee. Musculoskeletal: Present: no cyanosis Psychiatric: Present: mood/affect appropriate - Lab 01/08/18 00:53 01/08/18 00:53 Most recent lab results Calcium 8.1 mg/dL (8.6-10.3) L 01/08/18 00:53 Phosphorus 3.8 mg/dL (2.7-4.5) 01/07/18 00:47 Magnesium 2.0 mg/dL (1.6-2.6) 01/07/18 00:47 Urine Creatinine 111 mg/dL 01/06/18 12:55 Urine Sodium 25.1 mEq/L 01/06/18 12:55 - VTE Documentation of Mechanical Device: Intermittent pneumatic compression device Consult Discharge Plan - Plan Referrals: Ange Rogel CNP [Primary Care Provider] -
--- NOTE | 2018-01-08 11:34 | Orthopedics Progress Note ---
Date of Encounter: 01/08/18 Time of Encounter: 11:31 Subjective Principal diagnosis: LESLIE on CKD. Interval history: S: No issues overnight. Denies CP/SOB. On O2 currently. Denies fevers or chills. O: AFVSS GEN - NAD LLE: Dress c/d/i Mild erythema posteromedial No drainage DNVI Calves nontender A/P: Nephro and cardiology consulted, appreciate recs Plan for likely d/c to rehab today with follow up next week and outpatient cardio follow up per note Objective Vital signs: Vital Signs Temp Pulse Resp BP Pulse Ox 01/08/18 11:13 98.8 F 84 16 89/57 93 01/08/18 03:43 98.9 F 104 15 107/70 99 01/07/18 23:58 99.3 F 105 16 135/88 99 01/07/18 21:26 98.6 F 107 15 100/65 100 01/07/18 16:31 98.6 F 110 17 106/69 93 01/07/18 12:19 98.7 F 99 17 106/67 94 Intake and Output 01/07/18 01/08/18 01/08/18 23:59 07:59 15:59 Intake Total 610 / 610 0 / 0 240 / 240 Output Total 400 / 400 225 / 225 Balance 210 / 210 -225 / -225 240 / 240 Intake: IV Fluids 10 / 10 Normal Saline Flush 10 ML @ 0 10 / 10 mls/hr .ROUTE .[facility] Rx#: [id number] Oral 600 / 600 0 / 0 240 / 240 Output: Urine 400 / 400 225 / 225 Other: Meal Dinner Breakfast Percent of Meal Consumed 80% 100% # Voids 1 Weight 147 kg Blood Glucose* 136 177 Patient Weight 01/08/18 23:59 Weight 147 kg - Labs CBC & BMP: 01/08/18 00:53 01/08/18 00:53 Labs: Abnormal lab results RBC 2.80 M/mcL (4.19-5.50) L 01/08/18 00:53 Hgb 8.7 g/dL (12.9-16.9) L 01/08/18 00:53 Hct 26.5 % (37.5-50.1) L 01/08/18 00:53 Sodium 131 mEq/L (136-145) L 01/08/18 00:53 BUN 54 mg/dL (8-23) H 01/08/18 00:53 Creatinine 2.15 mg/dL (0.70-1.30) H 01/08/18 00:53 Est GFR ( Amer) 37 (> 60) L 01/08/18 00:53 Est GFR (Non-Af Amer) 30 (> 60) L 01/08/18 00:53 Glucose 153 mg/dL (70-105) H 01/08/18 00:53 POC Glucose 136 mg/dL (70-99) H 01/07/18 21:47 Uric Acid 8.2 mg/dL (2.3-7.6) H 01/06/18 14:33 Calcium 8.1 mg/dL (8.6-10.3) L 01/08/18 00:53 Iron 18 mcg/dL (65-175) L 01/08/18 00:53 % Saturation 7 % (20-55) L 01/08/18 00:53 Transferrin 196 mg/dL (203-362) L 01/08/18 00:53 Vitamin B12 179 pg/mL (250-1100) L 01/08/18 00:53 PTH Intact 196.3 pg/ml (10.0-65.0) H 01/08/18 00:53 - VTE Documentation of Mechanical Device: Intermittent pneumatic compression device Consult Discharge Plan - Plan Referrals: Ange Rogel, LEATHER DRIER [Primary Care Provider] -
[2018-01-08 14:41] LABS: Albumin 2.8 g/dL (3.5-5.7); Bilirubin,Total 0.8 mg/dL (0.3-1.0); Globulin 2.8 g/dL (2.4-3.5); Potassium 4.8 mEq/L (3.5-5.1); Total Protein 5.6 g/dL (6.4-8.9)
[2018-01-08 15:23] LABS: ABG Base Excess -2 mEq/L (-2 to 3); ABG HCO3 24 mEq/L (21-27); ABG Oxygen Saturation 95 % (95-98); ABG PCO2 46 mmHg (35-45); ABG PH 7.33 pH Units (7.32-7.45); ABG PO2 84 mmHg (85-104); ABG TCO2 26 mEq/L (20-26)
[2018-01-08 18:03] LABS: Bilirubin,Urine Negative (Negative); Blood,Urine Negative (Negative); Clarity,Urine Cloudy (Clear); Color,Urine Yellow (Yellow); Glucose,Urine (UA) Normal (Normal); Ketones,Urine Negative (Negative); Leukocyte Esterase,Urine Negative (Negative); Nitrite,Urine Negative (Negative); PH,Urine 5.5 pH Units (5.0-8.0); Protein,Urine Negative (Neg-Trace); Specific Gravity,Urine 1.022 (1.010-1.025); Urobilinogen,Urine Normal (Normal)
[2018-01-08 18:05] LABS: Bacteria,Urine None Seen per hpf (None-Few); Squamous Epithelial Cell,Urine Moderate per lpf (None-Few); WBC,Urine 0-3 per hpf (0-3)
[2018-01-08] MEDS ORDERED: 0.9 % Sodium Chloride 500 ML IVC ONE (18:11)
--- NOTE | 2018-01-08 18:46 | Internal Med Progress Note ---
Date of Encounter: 01/08/18 Time of Encounter: 18:43 - Assessment and plan (1) Arthritis of knee, left Current Visit: No Status: Chronic (2) Status post total knee replacement, left Current Visit: Yes Status: Acute Assessment and plan: - Orthopedics following. (3) Atrial fibrillation Current Visit: Yes Status: Chronic Assessment and plan: - Rate controlled, 80-100 - Patient high risk for CVA as he has history of these in the past and today CT head without contrast showed old infarcts. - continue Eliquis. - continue Coreg Qualifiers: Atrial fibrillation type: chronic Qualified Code(s): I48.2 - Chronic atrial fibrillation (4) CAD (coronary artery disease) Current Visit: No Status: Chronic Assessment and plan: - Continue simvastatin Qualifiers: Coronary Disease-Associated Artery/Lesion type: unspecified vessel or lesion type [place] vs. transplanted heart: unspecified whether [place] or transplanted heart Associated angina: angina presence unspecified Qualified Code(s): I25.10 - Atherosclerotic heart disease of [place] coronary artery without angina pectoris (5) HTN (hypertension) Current Visit: No Status: Chronic Assessment and plan: Continue to hold BP meds since he has lower/normal limits Qualifiers: Hypertension type: essential hypertension Qualified Code(s): I10 - Essential (primary) hypertension (6) DMII (diabetes mellitus, type 2) Current Visit: No Status: Chronic Assessment and plan: Insulin sliding scale Levemir 30 units @ bedtime Patient has had an episode of hypoglycemia symptoms when his glucose was in the 70s yesterday. No recent occurrence. Qualifiers: Diabetes mellitus long-term insulin use: unspecified long-term insulin use status Diabetes mellitus complication status: with unspecified complications Qualified Code(s): E11.8 - Type 2 diabetes mellitus with unspecified complications (7) Asthma Current Visit: No Status: Chronic Assessment and plan: Currently asymptomatic Continue PRN albuterol inhaler Qualifiers: Asthma severity: unspecified severity Asthma persistence: unspecified Asthma complication type: unspecified Qualified Code(s): J45.909 - Unspecified asthma, uncomplicated (8) Acute on chronic renal failure Current Visit: Yes Status: Acute Assessment and plan: - Creatinine 1.84 on admission and 2.14 this morning, BUN has been elevated-- likely pre-renal cause - Labs from outside facility 12/27/17 show SCr 1.11, eGFR 66 - Continue to hold Lasix and JIMMY inhibitor for now - Continue IV fluids - Use renal dosing and avoid nephrotoxins - Nephrology following Qualifiers: Acute renal failure type: unspecified Chronic kidney disease stage: stage 3 (moderate) Qualified Code(s): N17.9 - Acute kidney failure, unspecified; N18.3 - Chronic kidney disease, stage 3 (moderate); N18.3 - Chronic kidney disease, stage 3 (moderate) (9) Weakness Current Visit: Yes Status: Acute Assessment and plan: Etiology likely multifactorial: Recent surgery and impaired daily activity. - Magnesium, TSH within normal limits - Continue PT/OT (10) Slurred speech Current Visit: Yes Status: Resolved Assessment and plan: Brief episode gradually resolving. This was also accompanied with fatigue that went away as well. Concern for possible TIA since symptoms are improving per patient. Patient has history of remote infarcts. CT head without contrast was negative for bleed or acute abnormality CMP/CBC/LA did not have explainable findings for episode. He is already on Eliquis for atrial fibrillation, MRI unable to be done because of patient hardware in shoulder, also would not exchange clerk in this patient. Other possible etiologies include hypoxia or hypercapnea, pre syncopal episode. Will do NIHSS and monitor. If symptoms return, will consult Neurology. - Time Spent With Patient Total time spent is greater than 50% in coordination of care (as documented) at patient's floor/unit and/or counseling patient: - Subjective Interval history: Patient noted that he had a brief episode of slurred speech that improved. And family stated he was briefly confused. Patient states that has since resolved. See tests done in the day in assessment/plan. He denies headache, blurry vision, chest pain, SOB, n/v, diarrhea. BP has been running low again today requiring fluids. - Constitutional Vitals: Temp Pulse Resp BP Pulse Ox 99.5 F 97 16 93/61 97 01/08/18 16:39 01/08/18 16:39 01/08/18 16:39 01/08/18 16:39 01/08/18 16:39 General appearance: Present: A&O X 3 Exam: General: well nourished, well developed, No acute distress, HEENT: head normocephalic/atraumatic, EOMI, PERRL, moist mucus membranes, Neck: Supple, FROM Cardio: irregular rhythm, no tachycardia, no murmurs, +S1/S2 Pulm: CTAB, no wheezing or rhonchi, Normal respiratory effort. Abdomen: soft, nontender, BS+ Extremities: LLE swelling, surgical site covered, no erythema, no Neuro: AAOx3, no focal deficit, mentation intact, equal sensation in lower extremities Skin: surgical site is clean, dry and intact, no erythema, no drainage from site Psych: Answers questions appropriately. Cooperative with exam Internal Medicine: Result - Labs CBC & Chem 7: 01/08/18 00:53 01/08/18 14:07 Labs: Short CBC 01/08/18 Range/Units 00:53 WBC 8.0 (4.3-11.1) K/mcL Hgb 8.7 L (12.9-16.9) g/dL Hct 26.5 L (37.5-50.1) % Plt Count 147 (140-400) K/mcL Neutrophils # 5.9 (1.6-8.9) K/mcL BMP 01/08/18 01/08/18 00:53 14:07 Sodium 131 L 132 L Potassium 4.2 4.8 Chloride 99 102 Carbon Dioxide 26 26 BUN 54 H 58 H Creatinine 2.15 H 2.52 H Glucose 153 H 183 H Calcium 8.1 L 8.0 L Liver Function 01/08/18 Range/Units 14:07 Total Bilirubin 0.8 (0.3-1.0) mg/dL AST 17 (13-39) Units/L ALT 4 L (7-52) Units/L Alkaline Phosphatase 119 H (34-104) Units/L Albumin 2.8 L (3.5-5.7) g/dL Urine 01/08/18 Range/Units 17:35 Urine Color Yellow (Yellow) Urine Clarity Cloudy A (Clear) Urine pH 5.5 (5.0-8.0) pH Units Ur Specific [place] 1.022 (1.010-1.025) Urine Protein Negative (Neg-Trace) mg/dL Urine Glucose (UA) Normal (Normal) mg/dL - ABG Interpretation ABG results: ABG ABG pH 7.33 pH Units (7.32-7.45) 01/08/18 15:19 ABG pCO2 46 mmHg (35-45) H 01/08/18 15:19 ABG pO2 84 mmHg (85-104) L 01/08/18 15:19 ABG O2 Saturation 95 % (95-98) 01/08/18 15:19 - Impressions Impressions Echocardiogram 01/07/18 11:54 Impressions: Technically sub-optimal due to poor echocardiographic windows. LVEF 55%. LV function varies by cycle length of atrial fibrillation, but appears normal overall. Grossly, LV appears mildly dilated. Indeterminate diastolic function. Normal right ventricular structure and function. Grossly, appears moderate to severely dilated left atrium. Mild pulmonary hypertension. No significant valvular dysfunction. Left Ventricular Wall Motion: Rest Echo Findings All wall segments showed normal motion. Findings: Study Quality * Technically sub-optimal due to poor echocardiographic windows. ECG Findings * Atrial fibrillation. Left Ventricle * LVEF 55%. LV function varies by cycle length of atrial fibrillation, but appears normal overall. * Normal LV wall thickness. * Grossly, LV appears mildly dilated. * Indeterminate diastolic function. Right Ventricle * Normal right ventricular structure and function. Left Atrium * Grossly, appears moderate to severely dilated left atrium. Right Atrium * Right atrium is not well visualized. Interatrial Septum * Interatrial septum not well evaluated. Aortic Valve * Aortic valve not well visualized. * No aortic stenosis. * No aortic regurgitation. Mitral Valve * Normal mitral valve structure and function. * No mitral stenosis. * No mitral regurgitation. Tricuspid Valve * Normal tricuspid valve structure and function. * Trace tricuspid regurgitation. * Mild pulmonary hypertension. Pulmonic Valve * Pulmonic valve is not well visualized. Aorta * Normally sized aortic root. Pericardium * The pericardium appears normal. IVC * Normal IVC dimensions and inspiratory collapse. Pulmonary Artery * Pulmonary artery not well visualized. Chest X-Ray 01/08/18 13:49 IMPRESSION: No acute cardiopulmonary process identified. D/ / Michael Reyes MD / Michael Reyes MD Interpreting Provider: Michael Reyes MD Head CT 01/08/18 16:47 IMPRESSION: No acute intracranial abnormality with chronic ischemic changes as described. D/ / Tori Snider MD / Tori Snider MD Interpreting Provider: Tori Snider MD - VTE Documentation of Mechanical Device: Intermittent pneumatic compression device Consult Discharge Plan - Plan Referrals: Ange Rogel CNP [Primary Care Provider] -
[2018-01-08] MEDS: traMADol 50 MG TABLET PO PRN (22:30)
[2018-01-08] MEDS: Sulfamethoxazole/Trimeth DS 1 EACH TABLET PO SCH (22:30)
[2018-01-08] MEDS: Insulin DETEMIR 100 UNIT/ML X5UNITS SQ SCH (23:04)
[2018-01-09 01:53] LABS: Basophils % 0.1 %; Eosinophils # 0.1 K/mcL (0.0-0.6); Eosinophils % 1.4 %; Hematocrit 24.2 % (37.5-50.1); Hemoglobin 7.9 g/dL (12.9-16.9); Immature Granulocytes % 0.6 % (0-4); Lymphocytes # 0.8 K/mcL (0.6-4.6); Lymphocytes % 10.6 %; Mean Corpuscular HGB Conc 32.6 g/dL (31.6-35.5); Mean Corpuscular Hemoglobin 31.1 pg (28.0-33.3); Mean Corpuscular Volume 95.3 fL (83.0-100.0); Mean Platelet Volume 12.1 fL (9.4-12.4); Monocytes % 13.1 %; Neutrophils # 5.9 K/mcL (1.6-8.9); Platelet Count 157 K/mcL (140-400); Red Blood Count 2.54 M/mcL (4.19-5.50); Red Cell Distribution Width 13.6 % (11.5-14.5); Segmented Neutrophils % 74.2 %
[2018-01-09] MEDS: Temazepam 15 MG CAPSULE PO PRN (01:55)
[2018-01-09] MEDS: *HR* OxyCODONE/APAP 5/325 TABLET PO PRN ×2 (01:55→11:09)
[2018-01-09 04:36] LABS: Potassium 4.7 mEq/L (3.5-5.1)
[2018-01-09] MEDS: *HR* OxyCODONE Immed Rel 5 MG TABLET PO PRN (05:42)
[2018-01-09] MEDS ORDERED: Furosemide 20 MG/2 ML VIAL IVP PRN (07:58)
[2018-01-09] MEDS: Gabapentin 300 MG CAPSULE PO SCH ×2 (09:11→21:47)
[2018-01-09] MEDS: Cyanocobalamin (B-12) 1,000 MCG TABLET PO SCH (09:11)
[2018-01-09] MEDS: Sulfamethoxazole/Trimeth DS 1 EACH TABLET PO SCH ×2 (09:11→21:47)
[2018-01-09] MEDS: Apixaban 5 MG TABLET PO SCH ×2 (09:11→21:47)
[2018-01-09] MEDS: Insulin LISPRO 300 UNITS/3 ML VIAL SQ SCH ×4 (09:14→21:52)
--- NOTE | 2018-01-09 09:15 | Internal Med Progress Note ---
Date of Encounter: 01/09/18 Time of Encounter: 09:12 - Assessment and plan (1) Status post total knee replacement, left Current Visit: Yes Status: Acute Assessment and plan: - Orthopedics following. (2) Arthritis of knee, left Current Visit: No Status: Chronic (3) Atrial fibrillation Current Visit: Yes Status: Chronic Assessment and plan: - Rate controlled, 80-100 - continue Eliquis. - continue Coreg Qualifiers: Atrial fibrillation type: chronic Qualified Code(s): I48.2 - Chronic atrial fibrillation (4) CAD (coronary artery disease) Current Visit: No Status: Chronic Assessment and plan: - Continue simvastatin. Caution with antiplatlet therapy since patient already taking Eliquis would make him high risk for bleeding. Qualifiers: Coronary Disease-Associated Artery/Lesion type: unspecified vessel or lesion type [place] vs. transplanted heart: unspecified whether [place] or transplanted heart Associated angina: angina presence unspecified Qualified Code(s): I25.10 - Atherosclerotic heart disease of [place] coronary artery without angina pectoris (5) HTN (hypertension) Current Visit: No Status: Chronic Assessment and plan: Holding antihypertensives since he has lower/normal limits Hypotension should improve after transfusion with 2 units PRBC Qualifiers: Hypertension type: essential hypertension Qualified Code(s): I10 - Essential (primary) hypertension (6) DMII (diabetes mellitus, type 2) Current Visit: No Status: Chronic Assessment and plan: Insulin sliding scale Levemir 30 units @ bedtime Patient has had an episode of hypoglycemia symptoms when his glucose was in the 70s yesterday. No recent occurrence. 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: unspecified local intermodal truck driver insulin use status Diabetes mellitus complication status: with unspecified complications Qualified Code(s): E11.8 - Type 2 diabetes mellitus with unspecified complications (7) Asthma Current Visit: No Status: Chronic Assessment and plan: Currently asymptomatic Continue PRN albuterol inhaler Qualifiers: Asthma severity: unspecified severity Asthma persistence: unspecified Asthma complication type: unspecified Qualified Code(s): J45.909 - Unspecified asthma, uncomplicated (8) Acute on chronic renal failure Current Visit: Yes Status: Acute Assessment and plan: - Creatinine 1.84 on admission and 2.14 this morning, BUN has been elevated-- likely pre-renal cause - Labs from outside facility 12/27/17 show SCr 1.11, eGFR 66 - Continue to hold Lasix and JIMMY inhibitor for now - Continue IV fluids - Use renal dosing and avoid nephrotoxins - Nephrology following Qualifiers: Acute renal failure type: unspecified Chronic kidney disease stage: stage 3 (moderate) Qualified Code(s): N17.9 - Acute kidney failure, unspecified; N18.3 - Chronic kidney disease, stage 3 (moderate); N18.3 - Chronic kidney disease, stage 3 (moderate) (9) Weakness Current Visit: Yes Status: Acute Assessment and plan: Etiology likely multifactorial: Recent surgery and impaired daily activity. - Magnesium, TSH within normal limits - Continue PT/OT (10) Daytime somnolence Current Visit: Yes Status: Acute Assessment and plan: - Middle of conversations he tends to fall asleep in conversation and family is concerned he had slurred speech. - His neurological exam is unremarkable - Frequent neurological assessments are done and they are normal as well. - CT w/o contrast head with no acute findings. Shows old infarcts - We started CPAP here 01/08 overnight but patient wasn't using it because he wasn't sleeping much. I have suspicion this is related to IVONE. He does CPAP at home, has not used it here. - Continue CPAP at night, promote sleep better sleep hygiene - patient sleeps with bright lights and loud TV. - continue neurological assessment. Not as likely that this is TIA because these happen in brief paroxysms. Also patient workup as mentioned above is normal. (11) IVONE (obstructive sleep apnea) Current Visit: Yes Status: Acute (12) Slurred speech Current Visit: Yes Status: Resolved Assessment and plan: Brief episode gradually resolving. This was also accompanied with fatigue that went away as well. Concern for possible TIA since symptoms are improving per patient. Patient has history of remote infarcts. CT head without contrast was negative for bleed or acute abnormality CMP/CBC/LA did not have explainable findings for episode. He is already on Eliquis for atrial fibrillation, MRI unable to be done because of patient hardware in shoulder, also would not change coordinator in this patient. Other possible etiologies include hypoxia or hypercapnea, pre syncopal episode. NIHSS monitoring has been normal Neurological exam remains normal Slurred speech accompanied with daytime somnolence. Possibly from fatigue of sleep deprivation. Will continue to monitor closely. (13) Anemia Current Visit: Yes Status: Acute Assessment and plan: Recent operation. Recheck after 2 units PRBC. Currently hemodynamically stable. No signs of active bleeding. Qualifiers: Anemia type: iron deficiency Iron deficiency anemia type: other iron deficiency Qualified Code(s): D50.8 - Other iron deficiency anemias - Time Spent With Patient Total time spent is greater than 50% in coordination of care (as documented) at patient's floor/unit and/or counseling patient: - Subjective Interval history: Patient noted that he had a brief episode of slurred speech that improved. And family stated he was briefly confused. Patient states that has since resolved. See tests done in the day in assessment/plan. He denies headache, blurry vision, chest pain, SOB, n/v, diarrhea. BP has been running low again today requiring fluids. 01/09: yesterday family complained that patient was confused with slurred speech and an episode of confusion and somnolence that lasts briefly. See A/P for workup. This morning patient states he feels better. He did not sleep well reported by nursing, only had a few hours of sleep. Neuro checks have been unremarkable and nursing reports that he is doing very well. Had low hemoglobin this AM and being transfused 2 units PRBC. - Constitutional Vitals: Temp Pulse Resp BP Pulse Ox 98.7 F 93 20 110/57 97 01/09/18 06:00 01/09/18 06:00 01/09/18 06:00 01/09/18 06:00 01/09/18 06:00 General appearance: Present: A&O X 3 Exam: Gen.: Vitals noted. No acute distress. AAOx3 HEENT: PERRL/EOMI, oropharynx clear, Normocephalic, atraumatic Cardiac: RRR, no murmur, +S1/S2 Pulmonary: CTA bilaterally, no wheezes, rales or rhonchi, equal chest expansion Abdomen: soft, nontender, BS noted, no guarding Back: Moderately tender to palpation in paraspinals MSK: ROM intact, no joint swelling noted. Range of motion limited by pain Extremities: no BLE edema, nontender calf, no cyanosis or clubbing Neuro: A&Ox3, moves all extremities, no focal deficits aside from baseline Psych: Appropriate mood and behavior Internal Medicine: Result - Labs CBC & Chem 7: 01/09/18 01:27 01/09/18 03:42 Labs: Short CBC 01/09/18 Range/Units 01:27 WBC 7.9 (4.3-11.1) K/mcL Hgb 7.9 L (12.9-16.9) g/dL Hct 24.2 L (37.5-50.1) % Plt Count 157 (140-400) K/mcL Neutrophils # 5.9 (1.6-8.9) K/mcL BMP 01/08/18 01/09/18 14:07 03:42 Sodium 132 L 131 L Potassium 4.8 4.7 Chloride 102 102 Carbon Dioxide 26 24 BUN 58 H 64 H Creatinine 2.52 H 2.58 H Glucose 183 H 177 H Calcium 8.0 L 8.0 L Liver Function 01/08/18 Range/Units 14:07 Total Bilirubin 0.8 (0.3-1.0) mg/dL AST 17 (13-39) Units/L ALT 4 L (7-52) Units/L Alkaline Phosphatase 119 H (34-104) Units/L Albumin 2.8 L (3.5-5.7) g/dL Urine 01/08/18 Range/Units 17:35 Urine Color Yellow (Yellow) Urine Clarity Cloudy A (Clear) Urine pH 5.5 (5.0-8.0) pH Units Ur Specific Pierz 1.022 (1.010-1.025) Urine Protein Negative (Neg-Trace) mg/dL Urine Glucose (UA) Normal (Normal) mg/dL - ABG Interpretation ABG results: ABG ABG pH 7.33 pH Units (7.32-7.45) 01/08/18 15:19 ABG pCO2 46 mmHg (35-45) H 01/08/18 15:19 ABG pO2 84 mmHg (85-104) L 01/08/18 15:19 ABG O2 Saturation 95 % (95-98) 01/08/18 15:19 - Impressions Impressions Chest X-Ray 01/08/18 13:49 IMPRESSION: No acute cardiopulmonary process identified. D/ / Michael Reyes MD / Michael Reyes MD Interpreting Provider: Michael Reyes MD Head CT 01/08/18 16:47 IMPRESSION: No acute intracranial abnormality with chronic ischemic changes as described. D/ / Tori Snider MD / Tori Snider MD Interpreting Provider: Troi Snider MD Knee X-Ray 01/08/18 18:18 IMPRESSION: 1. No acute osseous abnormality 2. Status post left total knee arthroplasty without complication identified. D/ / Seth Aparicio MD / Seth Aparicio MD Interpreting Provider: Seth Aparicio MD - VTE Documentation of Mechanical Device: Venous foot pump, device Consult Discharge Plan - Plan Referrals: Ange Rogel, FINANCIAL REPORTING ADVISOR [Primary Care Provider] -
--- NOTE | 2018-01-09 09:58 | Nephrology Progress Note ---
Date of Encounter: 01/09/18 Time of Encounter: 09:57 - Assessment and Plan (1) Acute kidney injury Current Visit: Yes Status: Acute Medical records from [facility] arrived to the floor and were reviewed 01/07/18. Patient with eGFR of 66 with unremarkable urinalysis 12/27/2016. Patient has worsening renal function of unclear etiology. His baseline renal function is relatively normal. The patient is nonoliguric. After talking with him 01/07/18 he did admit to taking several doses of ibuprofen prior to coming in for surgery, but he reports only taking 3 or 4 pills the week before he came in. He denies nausea vomiting. He states he has occasional episodes diarrhea, but nothing out of the ordinary for him. He denies any rashes. He did not notice any dysuria or hematuria prior to coming into the hospital. His repeat urinalysis is unremarkable and his urine eosinophils was negative. Etiology of this time remains elusive but likely hemodynamic as his only nephrotoxins were lisinopril and furosemide and these were discontinued. Reviewing his vital signs reveals several episodes where his systolic blood pressure was below 100, but these seem to be episodic and not sustained. I am somewhat concerned about the presence of this atypical chest discomfort which is likely muscular skeletal as he describes the worst chest discomfort whenever he pulls himself up from a sitting position. The chest discomfort is left parasternal and reproducible. As I was talking to him he also describes another chest discomfort which is episodic more of a pressure, and occurs when he is sitting down and he first noticed it about 4-6 weeks ago. He states he has had a stress test in the past but thinks it was more than 2 years ago. He denies a history of a cardiac catheterization. He had an echo cardiogram last June which by report was normal. 01/08/2018. - Echocardiogram was unremarkable. Renal function is stable and may be more hemodynamic. Work-up so far is not revealing a cause. Will give another liter of saline and follow for improvement. 01/09/2018 - Renal function slightly worse. Hemoglobin is low and a transfusion was ordered. Initially he refused, but then agreed to transfusion of 1 unit of prbc. No need for dialysis today. (2) Status post total knee replacement, left Current Visit: Yes Status: Acute Per primary team. Erythema may be post surgical inflammation. WBC normal and he is afebrile. Will defer management to primary team. Demarcate erythematous area. (3) Atrial fibrillation Current Visit: Yes Status: Chronic Rate is controlled. Qualifiers: Atrial fibrillation type: chronic Qualified Code(s): I48.2 - Chronic atrial fibrillation (4) HTN (hypertension) Current Visit: No Status: Chronic Patient's blood pressure is relatively low. Will hold antihypertensive for sbp less than 100. He may need alternate control of his afib if unable to tolerate beta linda. Qualifiers: Hypertension type: essential hypertension Qualified Code(s): I10 - Essential (primary) hypertension (5) DMII (diabetes mellitus, type 2) Current Visit: No Status: Chronic Per primary team. 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 (7) Hypocalcemia Current Visit: Yes Status: Acute PTH elevated. Will start vitamin D supplementation. (8) Anemia Current Visit: Yes Status: Acute iron and vitamin b12 are low. Replacement has been started. Qualifiers: Anemia type: iron deficiency Iron deficiency anemia type: other iron deficiency Qualified Code(s): D50.8 - Other iron deficiency anemias Subjective Principal diagnosis: LESLIE on CKD. Interval history: Patient seen and evaluated. No new complaint. ROS stable. He has noticed some redness of his left knee. Overnight per report he fell trying to get up without asking for assistance. Objective - Vital Signs Vital signs: Vital Signs Temp Pulse Resp BP Pulse Ox 01/09/18 06:00 98.7 F 93 20 110/57 97 01/09/18 05:23 98.8 F 99 17 110/65 94 01/09/18 01:44 98.9 F 103 18 101/64 97 01/08/18 23:25 98 01/08/18 19:45 99.0 F 92 18 105/62 96 01/08/18 16:39 99.5 F 97 16 93/61 97 01/08/18 15:52 99.2 F 111 16 95/60 98 01/08/18 14:35 99.0 F 91 16 94/56 97 01/08/18 14:15 98.3 F 92 17 100/58 96 01/08/18 13:45 98.8 F 94 17 92/56 98 01/08/18 13:30 97.8 F 100 17 95/56 96 01/08/18 12:15 98.8 F 96 18 95/61 99 01/08/18 11:13 98.8 F 84 16 89/57 93 Intake and Output 01/08/18 01/09/18 01/09/18 23:59 07:59 15:59 Intake Total 240 / 240 Balance 240 / 240 Intake: Oral 240 / 240 Other: Meal Breakfast Percent of Meal Consumed 100% Blood Glucose* 267 160 - General Appearance General appearance: Present: well-developed, well-nourished, obese EENT: Present: ATNC Neck: Present: supple Cardiology: Present: edema, regular rate Integumentary: Present: warm and dry Neurologic: Present: alert and oriented x3 Psychiatric: Present: mood/affect appropriate - Lab 01/09/18 01:27 01/09/18 03:42 Most recent lab results ABG pH 7.33 pH Units (7.32-7.45) 01/08/18 15:19 ABG pCO2 46 mmHg (35-45) H 01/08/18 15:19 ABG pO2 84 mmHg (85-104) L 01/08/18 15:19 ABG HCO3 24 mEq/L (21-27) 01/08/18 15:19 ABG O2 Saturation 95 % (95-98) 01/08/18 15:19 Calcium 8.0 mg/dL (8.6-10.3) L 01/09/18 03:42 Phosphorus 3.8 mg/dL (2.7-4.5) 01/07/18 00:47 Magnesium 2.0 mg/dL (1.6-2.6) 01/07/18 00:47 Urine Creatinine 111 mg/dL 01/06/18 12:55 Urine Sodium 25.1 mEq/L 01/06/18 12:55 - VTE Documentation of Mechanical Device: Venous foot pump, device Consult Discharge Plan - Plan Referrals: Ange Rogel, JACQUARD LOOM CARD CHANGER [Primary Care Provider] -
--- NOTE | 2018-01-09 11:12 | Orthopedics Progress Note ---
Date of Encounter: 01/09/18 Time of Encounter: 11:11 Subjective Principal diagnosis: LESLIE on CKD. Interval history: S: Fall yesterday, imaging negative for fx or HW injury. Denies CP/SOB. On O2 currently. Denies fevers or chills. O: AF, vitals reviewed, Cr 2.58 Hgb 7.9 GEN - NAD LLE: Dress c/d/i Mild erythema posteromedial - stable from yesterday No drainage DNVI Calves nontender A/P: s/p L TKA with LESLIE on CKD Nephro and cardiology consulted, appreciate recs Creatinine rising, unclear etiology, continue recommendations per nephro Continue Bactrim, hold CPM 1 u PRBC Objective Vital signs: Vital Signs Temp Pulse Pulse Pulse Pulse Resp BP 01/09/18 10:28 89 99 111 01/09/18 06:00 98.7 F 93 20 110/57 01/09/18 05:23 98.8 F 99 17 110/65 01/09/18 01:44 98.9 F 103 18 101/64 01/08/18 23:25 01/08/18 19:45 99.0 F 92 18 105/62 01/08/18 16:39 99.5 F 97 16 93/61 01/08/18 15:52 99.2 F 111 16 95/60 01/08/18 14:35 99.0 F 91 16 94/56 01/08/18 14:15 98.3 F 92 17 100/58 01/08/18 13:45 98.8 F 94 17 92/56 01/08/18 13:30 97.8 F 100 17 95/56 01/08/18 12:15 98.8 F 96 18 95/61 01/08/18 11:13 98.8 F 84 16 89/57 BP BP BP Pulse Ox 01/09/18 10:28 92/54 112/61 116/69 01/09/18 06:00 97 01/09/18 05:23 94 01/09/18 01:44 97 01/08/18 23:25 98 01/08/18 19:45 96 01/08/18 16:39 97 01/08/18 15:52 98 01/08/18 14:35 97 01/08/18 14:15 96 01/08/18 13:45 98 01/08/18 13:30 96 04/28/18 12:15 99 01/08/18 11:13 93 Intake and Output 01/08/18 01/09/18 01/09/18 23:59 07:59 15:59 Intake Total 240 / 240 Balance 240 / 240 Intake: Oral 240 / 240 Other: Meal Breakfast Percent of Meal Consumed 100% Blood Glucose* 267 160 - Labs CBC & BMP: 01/09/18 01:27 01/09/18 03:42 Labs: Abnormal lab results RBC 2.54 M/mcL (4.19-5.50) L 01/09/18 01:27 Hgb 7.9 g/dL (12.9-16.9) L 01/09/18 01:27 Hct 24.2 % (37.5-50.1) L 01/09/18 01:27 ABG pCO2 46 mmHg (35-45) H 01/08/18 15:19 ABG pO2 84 mmHg (85-104) L 01/08/18 15:19 Sodium 131 mEq/L (136-145) L 01/09/18 03:42 BUN 64 mg/dL (8-23) H 01/09/18 03:42 Creatinine 2.58 mg/dL (0.70-1.30) H 01/09/18 03:42 Est GFR ( Amer) 30 (> 60) L 01/09/18 03:42 Est GFR (Non-Af Amer) 25 (> 60) L 01/09/18 03:42 Glucose 177 mg/dL (70-105) H 01/09/18 03:42 POC Glucose 222 mg/dL (70-99) H 01/08/18 13:31 Uric Acid 8.2 mg/dL (2.3-7.6) H 01/06/18 14:33 Calcium 8.0 mg/dL (8.6-10.3) L 01/09/18 03:42 Iron 18 mcg/dL (65-175) L 01/08/18 00:53 % Saturation 7 % (20-55) L 01/08/18 00:53 Transferrin 196 mg/dL (203-362) L 01/08/18 00:53 ALT 4 Units/L (7-52) L 01/08/18 14:07 Alkaline Phosphatase 119 Units/L (34-104) H 01/08/18 14:07 Serum Total Protein 5.6 g/dL (6.4-8.9) L 01/08/18 14:07 Albumin 2.8 g/dL (3.5-5.7) L 01/08/18 14:07 Albumin/Globulin Ratio 1.0 (1.1-2.2) L 01/08/18 14:07 Vitamin B12 179 pg/mL (250-1100) L 01/08/18 00:53 PTH Intact 196.3 pg/ml (10.0-65.0) H 01/08/18 00:53 Urine Clarity Cloudy (Clear) A 01/08/18 17:35 Urine Microscopic RBC 5-15 per hpf (0-3) H 01/08/18 17:35 Ur Squamous Epith Cells Moderate per lpf (None-Few) H 01/08/18 17:35 - VTE Documentation of Mechanical Device: Venous foot pump, device Consult Discharge Plan - Plan Referrals: Ange Rogel, MODULAR HOME CREW MEMBER [Primary Care Provider] -
[2018-01-09 18:05] LABS: Complement Component 3 108 mg/dL (88-201); Complement Component 4 23 mg/dL (10-40)
[2018-01-09] MEDS: traMADol 50 MG TABLET PO PRN (21:47)
[2018-01-09] MEDS: Insulin DETEMIR 100 UNIT/ML X5UNITS SQ SCH (22:47)
[2018-01-10] MEDS: *HR* OxyCODONE/APAP 5/325 TABLET PO PRN (00:41)
[2018-01-10] MEDS: Temazepam 15 MG CAPSULE PO PRN (00:41)
[2018-01-10 01:23] LABS: Basophils % 0.1 %; Eosinophils # 0.2 K/mcL (0.0-0.6); Eosinophils % 2.5 %; Hematocrit 26.2 % (37.5-50.1); Hemoglobin 8.2 g/dL (12.9-16.9); Immature Granulocytes % 0.5 % (0-4); Lymphocytes # 0.7 K/mcL (0.6-4.6); Lymphocytes % 8.8 %; Mean Corpuscular HGB Conc 31.3 g/dL (31.6-35.5); Mean Corpuscular Hemoglobin 30.3 pg (28.0-33.3); Mean Corpuscular Volume 96.7 fL (83.0-100.0); Mean Platelet Volume 11.6 fL (9.4-12.4); Monocytes % 11.9 %; Neutrophils # 6.3 K/mcL (1.6-8.9); Platelet Count 174 K/mcL (140-400); Red Blood Count 2.71 M/mcL (4.19-5.50); Red Cell Distribution Width 13.7 % (11.5-14.5); Segmented Neutrophils % 76.2 %
[2018-01-10 01:43] LABS: Calcium 8.3 mg/dL (8.6-10.3); Potassium 5.2 mEq/L (3.5-5.1)
--- NOTE | 2018-01-10 06:51 | Orthopedics Progress Note ---
Date of Encounter: 01/10/18 Time of Encounter: 06:50 - Assessment and Plan (1) Morbid obesity with BMI of 40.0-44.9, adult Current Visit: Yes Status: Chronic (2) Arthritis of knee, left Current Visit: No Status: Chronic (3) Status post total knee replacement, left Current Visit: Yes Status: Acute (4) Atrial fibrillation Current Visit: Yes Status: Chronic Qualifiers: Atrial fibrillation type: chronic Qualified Code(s): I48.2 - Chronic atrial fibrillation (5) CAD (coronary artery disease) Current Visit: No Status: Chronic Qualifiers: Coronary Disease-Associated Artery/Lesion type: unspecified vessel or lesion type [place] vs. 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 control service representative insulin use status Diabetes mellitus complication status: with unspecified complications Qualified Code(s): E11.8 - Type 2 diabetes mellitus with unspecified complications (8) Asthma Current Visit: No Status: Chronic Qualifiers: Asthma severity: unspecified severity Asthma persistence: unspecified Asthma complication type: unspecified Qualified Code(s): J45.909 - Unspecified asthma, uncomplicated (9) Chronic pain Current Visit: No Status: Chronic Qualifiers: Chronic pain type: other chronic pain Qualified Code(s): G89.29 - Other chronic pain (10) Anxiety Current Visit: No Status: Chronic (11) Acute kidney injury Current Visit: Yes Status: Acute Subjective Principal diagnosis: LESLIE on CKD. Interval history: Patient was seen this morning doing well without complaints. Afebrile vital signs stable. Operative extremity: Neurovascularly intact Dressing clean dry and intact Calves nontender erythema improving around knee. Assessment and plan: Continue with postoperative care Creatinine is increasing awaiting plan by nephrology. Hematocrit 26 patient refused transfusion yesterday Objective Vital signs: Vital Signs Temp Pulse Pulse Pulse Pulse Resp BP 01/10/18 04:37 98.7 F 96 16 102/56 01/09/18 23:33 98.3 F 103 18 117/58 01/09/18 21:39 84 105/65 01/09/18 21:18 01/09/18 19:30 98.3 F 80 19 93/61 01/09/18 15:14 97.7 F 88 20 102/64 01/09/18 11:00 01/09/18 10:28 89 99 111 BP BP BP Pulse Ox 01/10/18 04:37 94 01/09/18 23:33 94 01/09/18 21:39 01/09/18 21:18 92 01/09/18 19:30 95 01/09/18 15:14 98 01/09/18 11:00 92 01/09/18 10:28 92/54 112/61 116/69 Intake and Output 01/09/18 01/09/18 01/10/18 15:59 23:59 07:59 Intake Total 240 / 240 360 / 360 Output Total 450 / 450 Balance 240 / 240 -90 / -90 Intake: Oral 240 / 240 360 / 360 Output: Urine 450 / 450 Other: Meal Breakfast Dinner Percent of Meal Consumed 100% 100% Blood Glucose* 120 138 - Labs CBC & BMP: 01/10/18 01:04 01/10/18 01:04 Labs: Abnormal lab results RBC 2.71 M/mcL (4.19-5.50) L 01/10/18 01:04 Hgb 8.2 g/dL (12.9-16.9) L 01/10/18 01:04 Hct 26.2 % (37.5-50.1) L 01/10/18 01:04 MCHC 31.3 g/dL (31.6-35.5) L 01/10/18 01:04 ABG pCO2 46 mmHg (35-45) H 01/08/18 15:19 ABG pO2 84 mmHg (85-104) L 01/08/18 15:19 Sodium 131 mEq/L (136-145) L 01/10/18 01:04 Potassium 5.2 mEq/L (3.5-5.1) H 01/10/18 01:04 BUN 73 mg/dL (8-23) H 01/10/18 01:04 Creatinine 3.24 mg/dL (0.70-1.30) H 01/10/18 01:04 Est GFR ( Amer) 23 (> 60) L 01/10/18 01:04 Est GFR (Non-Af Amer) 19 (> 60) L 01/10/18 01:04 Glucose 115 mg/dL (70-105) H 01/10/18 01:04 POC Glucose 138 mg/dL (70-99) H 01/09/18 19:29 Uric Acid 8.2 mg/dL (2.3-7.6) H 01/06/18 14:33 Calcium 8.3 mg/dL (8.6-10.3) L 01/10/18 01:04 Iron 18 mcg/dL (65-175) L 01/08/18 00:53 % Saturation 7 % (20-55) L 01/08/18 00:53 Transferrin 196 mg/dL (203-362) L 01/08/18 00:53 ALT 4 Units/L (7-52) L 01/08/18 14:07 Alkaline Phosphatase 119 Units/L (34-104) H 01/08/18 14:07 Serum Total Protein 5.6 g/dL (6.4-8.9) L 01/08/18 14:07 Albumin 2.8 g/dL (3.5-5.7) L 01/08/18 14:07 Albumin/Globulin Ratio 1.0 (1.1-2.2) L 01/08/18 14:07 Vitamin B12 179 pg/mL (250-1100) L 01/08/18 00:53 Vit D 1,25-Dihydroxy 15.7 pg/mL (19.9-79.3) L 01/06/18 08:44 PTH Intact 196.3 pg/ml (10.0-65.0) H 01/08/18 00:53 Urine Clarity Cloudy (Clear) A 01/08/18 17:35 Urine Microscopic RBC 5-15 per hpf (0-3) H 01/08/18 17:35 Ur Squamous Epith Cells Moderate per lpf (None-Few) H 01/08/18 17:35 - VTE Documentation of Mechanical Device: Venous foot pump, device Consult Discharge Plan - Plan Referrals: Ange Rogel, RADIAL SAW OPERATOR [Primary Care Provider] -
[2018-01-10] MEDS: Insulin LISPRO 300 UNITS/3 ML VIAL SQ SCH ×4 (07:55→21:40)
[2018-01-10] MEDS: Gabapentin 300 MG CAPSULE PO SCH ×2 (07:56→19:57)
[2018-01-10] MEDS: Cyanocobalamin (B-12) 1,000 MCG TABLET PO SCH (07:57)
[2018-01-10] MEDS: Apixaban 5 MG TABLET PO SCH ×2 (07:57→19:57)
[2018-01-10] MEDS: Sulfamethoxazole/Trimeth DS 1 EACH TABLET PO SCH (07:57)
--- NOTE | 2018-01-10 11:28 | Nephrology Progress Note ---
Date of Encounter: 01/10/18 Time of Encounter: 11:26 - Assessment and Plan (1) Acute kidney injury Current Visit: Yes Status: Acute Mr. Spears is an LESLIE on CKD in the setting of previous NSAID use, recent surgery with hypotension, and use of Bactrum. Scr 3.24 GFR 19, worsening from yesterday. 2 Units PRBCs ordered on Wednesday for HGB 7.9. He refused both. The patient insists he did not refuse the blood, but will now take the transfusion. Hyperkalemia 5.2, will order kayexalate PO BID x 2 doses. (2) Status post total knee replacement, left Current Visit: Yes Status: Acute Per Ortho team. (3) Atrial fibrillation Current Visit: Yes Status: Chronic Per primary team, rate controlled at this time. Qualifiers: Atrial fibrillation type: unspecified Qualified Code(s): I48.91 - Unspecified atrial fibrillation (4) Altered mental status Current Visit: Yes Status: Acute Unsure of baseline, however granddaughter states he is usually "not like this". Will check an Ammonia level. Qualifiers: Qualified Code(s): R41.82 - Altered mental status, unspecified (5) Anemia Current Visit: Yes Status: Acute Most likely a combination of post operative time and LESLIE. 2 Units ordered for today. Iron and Vitamin B 12 replacement already started. Check Hgb tomorrow. Qualifiers: Anemia type: iron deficiency Iron deficiency anemia type: other iron deficiency Qualified Code(s): D50.8 - Other iron deficiency anemias Subjective Principal diagnosis: LESLIE on CKD. Interval history: Pt seen and examined. In no distress. Objective - Vital Signs Vital signs: Vital Signs Temp Pulse Resp BP Pulse Ox 01/10/18 07:19 99.1 F 99 18 124/74 98 01/10/18 04:37 98.7 F 96 16 102/56 94 01/09/18 23:33 98.3 F 103 18 117/58 94 01/09/18 21:39 84 105/65 01/09/18 21:18 92 01/09/18 19:30 98.3 F 80 19 93/61 95 01/09/18 15:14 97.7 F 88 20 102/64 98 Intake and Output 01/09/18 01/10/18 01/10/18 23:59 07:59 15:59 Intake Total 360 / 360 Output Total 450 / 450 Balance -90 / -90 Intake: Oral 360 / 360 Output: Urine 450 / 450 Other: Meal Dinner Percent of Meal Consumed 100% Blood Glucose* 138 96 - General Appearance General appearance: Present: obese, fatigue EENT: Present: ATNC, hearing intact, vision intact Neck: Present: supple Respiratory: Present: clear Cardiology: Present: no murmurs, edema (noted to LLE. ), irregular rhythm, normal S1, normal S2 Gastrointestinal: Present: normoactive bowel sounds, no tenderness, no guarding Integumentary: Present: no rash, warm and dry, erythema (noted to LLE) Neurologic: Present: confused Additional Comments: Pt appears to be confused. Will state full name and , but did have trouble answering the date and his present location. Musculoskeletal: Present: erythema Psychiatric: Present: mood/affect appropriate - Lab 01/10/18 01:04 01/10/18 01:04 Most recent lab results ABG pH 7.33 pH Units (7.32-7.45) 01/08/18 15:19 ABG pCO2 46 mmHg (35-45) H 01/08/18 15:19 ABG pO2 84 mmHg (85-104) L 01/08/18 15:19 ABG HCO3 24 mEq/L (21-27) 01/08/18 15:19 ABG O2 Saturation 95 % (95-98) 01/08/18 15:19 Calcium 8.3 mg/dL (8.6-10.3) L 01/10/18 01:04 Phosphorus 3.8 mg/dL (2.7-4.5) 01/07/18 00:47 Magnesium 2.0 mg/dL (1.6-2.6) 01/07/18 00:47 Urine Creatinine 111 mg/dL 01/06/18 12:55 Urine Sodium 25.1 mEq/L 01/06/18 12:55 - VTE Documentation of Mechanical Device: Venous foot pump, device Consult Discharge Plan - Plan Referrals: Ange Rogel, [employer] [Primary Care Provider] -
[2018-01-10 11:49] LABS: ANA IgG by ELISA NONE DETECTED (None Detected)
--- NOTE | 2018-01-10 16:10 | Internal Med Progress Note ---
<Abimbola Bucio - Last Filed: 01/10/18 16:07> Date of Encounter: 01/10/18 Time of Encounter: 09:15 - Assessment and plan (1) Arthritis of knee, left Current Visit: No Status: Chronic Assessment and plan: s/p Left total knee replacement (2) Status post total knee replacement, left Current Visit: Yes Status: Acute Assessment and plan: s/p total knee replacement 01/03/18 -ortho managing -pain controlled (3) Atrial fibrillation Current Visit: Yes Status: Chronic Assessment and plan: Rate controlled Afib, stable Coreg 12.5 mg BID On Eliquis for anticoagulation--will monitor and adjust dose based on renal function Qualifiers: Atrial fibrillation type: unspecified Qualified Code(s): I48.91 - Unspecified atrial fibrillation (4) CAD (coronary artery disease) Current Visit: No Status: Chronic Assessment and plan: Stable - On home meds coreg, simvastatin - Lasix and lisinopril held d/t worsening renal function - Monitor hgb, if < 8.0 transfuse pRBC Qualifiers: Coronary Disease-Associated Artery/Lesion type: unspecified vessel or lesion type [place] vs. transplanted heart: unspecified whether [place] or transplanted heart Associated angina: angina presence unspecified Qualified Code(s): I25.10 - Atherosclerotic heart disease of [place] coronary artery without angina pectoris (5) HTN (hypertension) Current Visit: No Status: Chronic Assessment and plan: Known HTN, stable - Continue current BP management Qualifiers: Hypertension type: essential hypertension Qualified Code(s): I10 - Essential (primary) hypertension (6) DMII (diabetes mellitus, type 2) Current Visit: No Status: Chronic Assessment and plan: DM II currently controlled - 30 units levemir - sliding scale insulin, medium dose - ACHS glucose checks - diabetic diet Qualifiers: Diabetes mellitus oil heaterman insulin use: unspecified oil heaterman insulin use status Diabetes mellitus complication status: with unspecified complications Qualified Code(s): E11.8 - Type 2 diabetes mellitus with unspecified complications (7) Asthma Current Visit: No Status: Chronic Assessment and plan: Stable Continue current inhaler Supplemental O2 Qualifiers: Asthma severity: unspecified severity Asthma persistence: unspecified Asthma complication type: unspecified Qualified Code(s): J45.909 - Unspecified asthma, uncomplicated (8) Acute on chronic renal failure Current Visit: Yes Status: Acute Assessment and plan: Baseline stage III CKD, likely d/t diabetic nephropathy Acutely Stage IV CKD - possibly d/t hypoperfusion (pre-renal)--s/p left total knee replacement - previously on nephrotoxic drugs (bactrim, hydralazine, lisinopril, gabapentin) - recorded output is poor, suggesting pre-renal - continue NS @ 75mL/hr - nephrology following - avoiding nephrotoxins, renal dosing of abx/meds Qualifiers: Acute renal failure type: unspecified Chronic kidney disease stage: stage 3 (moderate) Qualified Code(s): N17.9 - Acute kidney failure, unspecified; N18.3 - Chronic kidney disease, stage 3 (moderate); N18.3 - Chronic kidney disease, stage 3 (moderate) (9) Anemia Current Visit: Yes Status: Acute Assessment and plan: Chronic anemia d/t CKD Stage II Acute on chronic d/t recent left total knee replacement Iron studies show iron deficiency anemia 2 units pRBCs pending Qualifiers: Anemia type: iron deficiency Iron deficiency anemia type: other iron deficiency Qualified Code(s): D50.8 - Other iron deficiency anemias (10) Daytime somnolence Current Visit: Yes Status: Acute Assessment and plan: Possibly due to hypercapnia Obtaining new ABG CPAP at night and during rest (11) IVONE (obstructive sleep apnea) Current Visit: Yes Status: Acute Assessment and plan: CPAP at night and during rest (12) Altered mental status Current Visit: Yes Status: Acute Assessment and plan: Unknown etiology at this time - Ammonia level WNL today - TSH WNL - Head CT unremarkable, chronic ischemic changes - Blood glucose well controlled - Doesn't appear to be infectious - Possibly underlying dementia - Repeat ABG to rule out hypercapnia and/or hypoxia - Nerology consult Qualifiers: Altered mental status type: unspecified Qualified Code(s): R41.82 - Altered mental status, unspecified - Time Spent With Patient Total time spent is greater than 50% in coordination of care (as documented) at patient's floor/unit and/or counseling patient: - Subjective Interval history: Pt seen and examined this morning at bedside. No complaints of knee pain. During interview today, he does not answer questions appropriately. - Constitutional Vitals: Temp Pulse Resp BP Pulse Ox 99.4 F 98 16 163/100 94 01/10/18 11:25 01/10/18 11:25 01/10/18 11:25 01/10/18 11:25 01/10/18 11:25 Exam: General: No acute distress, resting comfortably in bed HEENT: head normocephalic/atraumatic, EOMI, sclera anicteric, moist mucus membranes, Neck: Supple, FROM Cardio: RRR, no murmurs, +S1/S2 Pulm: Normal respiratory effort, CTAB, no wheezing, poor pt cooperation Abdomen: soft, nontender, BS+, no rebound, rigidity, guarding, distention Extremities: LLE +1 pitting edema, no calf tenderness, no cyanosis, foot pumps Back: normal appearance on inspection Neuro: AAOx3, no focal deficit, no speech deficit, CN II-XII grossly intact, moves extremities spontaneously Internal Medicine: Result - Labs CBC & Chem 7: 01/10/18 01:04 01/10/18 01:04 Labs: Short CBC 01/10/18 Range/Units 01:04 WBC 8.3 (4.3-11.1) K/mcL Hgb 8.2 L (12.9-16.9) g/dL Hct 26.2 L (37.5-50.1) % Plt Count 174 (140-400) K/mcL Neutrophils # 6.3 (1.6-8.9) K/mcL BMP 01/10/18 01:04 Sodium 131 L Potassium 5.2 H Chloride 101 Carbon Dioxide 23 BUN 73 H Creatinine 3.24 H Glucose 115 H Calcium 8.3 L - ABG Interpretation ABG results: ABG ABG pH 7.33 pH Units (7.32-7.45) 01/08/18 15:19 ABG pCO2 46 mmHg (35-45) H 01/08/18 15:19 ABG pO2 84 mmHg (85-104) L 01/08/18 15:19 ABG O2 Saturation 95 % (95-98) 01/08/18 15:19 - VTE Documentation of Mechanical Device: Venous foot pump, device Consult Discharge Plan - Plan Referrals: Ange Rogel, CHIEF CONSTRUCTION INSPECTOR [Primary Care Provider] - <Heather Mccurdy - Last Filed: 01/10/18 18:18> Date of Encounter: 01/10/18 - Assessment and plan (1) Arthritis of knee, left Current Visit: No Status: Chronic (2) Status post total knee replacement, left Current Visit: Yes Status: Acute (3) Atrial fibrillation Current Visit: Yes Status: Chronic Qualifiers: Atrial fibrillation type: unspecified Qualified Code(s): I48.91 - Unspecified atrial fibrillation (4) CAD (coronary artery disease) Current Visit: No Status: Chronic Qualifiers: Coronary Disease-Associated Artery/Lesion type: unspecified vessel or lesion type [place] vs. transplanted heart: unspecified whether [place] or transplanted heart Associated angina: angina presence unspecified Qualified Code(s): I25.10 - Atherosclerotic heart disease of [place] coronary artery without angina pectoris (5) HTN (hypertension) Current Visit: No Status: Chronic Qualifiers: Hypertension type: essential hypertension Qualified Code(s): I10 - Essential (primary) hypertension (6) DMII (diabetes mellitus, type 2) Current Visit: No Status: Chronic Qualifiers: Diabetes mellitus [place] insulin use: unspecified oil heaterman insulin use status Diabetes mellitus complication status: with unspecified complications Qualified Code(s): E11.8 - Type 2 diabetes mellitus with unspecified complications (7) Asthma Current Visit: No Status: Chronic Qualifiers: Asthma severity: unspecified severity Asthma persistence: unspecified Asthma complication type: unspecified Qualified Code(s): J45.909 - Unspecified asthma, uncomplicated (8) Acute on chronic renal failure Current Visit: Yes Status: Acute Qualifiers: Acute renal failure type: unspecified Chronic kidney disease stage: stage 3 (moderate) Qualified Code(s): N17.9 - Acute kidney failure, unspecified; N18.3 - Chronic kidney disease, stage 3 (moderate); N18.3 - Chronic kidney disease, stage 3 (moderate) (9) Anemia Current Visit: Yes Status: Acute Qualifiers: Anemia type: iron deficiency Iron deficiency anemia type: other iron deficiency Qualified Code(s): D50.8 - Other iron deficiency anemias (10) Daytime somnolence Current Visit: Yes Status: Acute (11) IVONE (obstructive sleep apnea) Current Visit: Yes Status: Acute (12) Altered mental status Current Visit: Yes Status: Acute Qualifiers: Altered mental status type: unspecified Qualified Code(s): R41.82 - Altered mental status, unspecified - Time Spent With Patient Total time spent is greater than 50% in coordination of care (as documented) at patient's floor/unit and/or counseling patient: - Constitutional Vitals: Temp Pulse Resp BP Pulse Ox 99.8 F H 108 22 108/57 94 01/10/18 17:51 01/10/18 17:51 01/10/18 17:51 01/10/18 17:51 01/10/18 11:25 Internal Medicine: Result - Labs CBC & Chem 7: 01/10/18 01:04 01/10/18 01:04 Labs: Short CBC 01/10/18 Range/Units 01:04 WBC 8.3 (4.3-11.1) K/mcL Hgb 8.2 L (12.9-16.9) g/dL Hct 26.2 L (37.5-50.1) % Plt Count 174 (140-400) K/mcL Neutrophils # 6.3 (1.6-8.9) K/mcL BMP 01/10/18 01:04 Sodium 131 L Potassium 5.2 H Chloride 101 Carbon Dioxide 23 BUN 73 H Creatinine 3.24 H Glucose 115 H Calcium 8.3 L - ABG Interpretation ABG results: ABG ABG pH 7.32 pH Units (7.32-7.45) 01/10/18 17:01 ABG pCO2 44 mmHg (35-45) 01/10/18 17:01 ABG pO2 81 mmHg (85-104) L 01/10/18 17:01 ABG O2 Saturation 95 % (95-98) 01/10/18 17:01 - Attending Attestation I performed a history and physical examination of the patient and discussed his/ her management with the resident. I reviewed the residents note and agree with the documented findings and plan of care.
[2018-01-10 17:05] LABS: ABG Base Excess -3 mEq/L (-2 to 3); ABG HCO3 23 mEq/L (21-27); ABG Oxygen Saturation 95 % (95-98); ABG PCO2 44 mmHg (35-45); ABG PH 7.32 pH Units (7.32-7.45); ABG PO2 81 mmHg (85-104); ABG TCO2 24 mEq/L (20-26)
[2018-01-10] MEDS ORDERED: 0.9 % Sodium Chloride 250 ML ONE ×2 (17:29→21:09)
[2018-01-10] MEDS: Thiamine (B-1) 100 MG TABLET PO SCH (18:59)
[2018-01-10] MEDS ORDERED: Sulfamethoxazole/Trimeth SS 1 TAB PO SCH (21:00)
[2018-01-10] MEDS: Insulin DETEMIR 100 UNIT/ML X5UNITS SQ SCH (21:41)
[2018-01-11] MEDS: Temazepam 15 MG CAPSULE PO PRN (01:42)
[2018-01-11 05:03] LABS: Basophils % 0.1 %; Eosinophils # 0.2 K/mcL (0.0-0.6); Eosinophils % 3.1 %; Hematocrit 28.3 % (37.5-50.1); Hemoglobin 9.3 g/dL (12.9-16.9); Immature Granulocytes % 0.3 % (0-4); Lymphocytes # 0.7 K/mcL (0.6-4.6); Lymphocytes % 9.6 %; Mean Corpuscular HGB Conc 32.9 g/dL (31.6-35.5); Mean Corpuscular Hemoglobin 30.6 pg (28.0-33.3); Mean Corpuscular Volume 93.1 fL (83.0-100.0); Mean Platelet Volume 11.3 fL (9.4-12.4); Monocytes # 0.9 K/mcL (0.0-1.3); Monocytes % 12.8 %; Neutrophils # 5.2 K/mcL (1.6-8.9); Platelet Count 183 K/mcL (140-400); Red Blood Count 3.04 M/mcL (4.19-5.50); Red Cell Distribution Width 14.2 % (11.5-14.5); Segmented Neutrophils % 74.1 %
[2018-01-11 05:22] LABS: Calcium 8.5 mg/dL (8.6-10.3); Magnesium 2.4 mg/dL (1.6-2.6); Phosphorous 5.9 mg/dL (2.7-4.5); Potassium 4.9 mEq/L (3.5-5.1)
--- NOTE | 2018-01-11 06:36 | Orthopedics Progress Note ---
Date of Encounter: 01/11/18 Time of Encounter: 06:35 - Assessment and Plan (1) Morbid obesity with BMI of 40.0-44.9, adult Current Visit: Yes Status: Chronic (2) Arthritis of knee, left Current Visit: No Status: Chronic (3) Status post total knee replacement, left Current Visit: Yes Status: Acute (4) Atrial fibrillation Current Visit: Yes Status: Chronic Qualifiers: Atrial fibrillation type: unspecified Qualified Code(s): I48.91 - Unspecified atrial fibrillation (5) CAD (coronary artery disease) Current Visit: No Status: Chronic Qualifiers: Coronary Disease-Associated Artery/Lesion type: unspecified vessel or lesion type [place] vs. transplanted heart: unspecified whether [place] or transplanted heart Associated angina: angina presence unspecified Qualified Code(s): I25.10 - Atherosclerotic heart disease of [place] coronary artery without angina pectoris (6) HTN (hypertension) Current Visit: No Status: Chronic Qualifiers: Hypertension type: essential hypertension Qualified Code(s): I10 - Essential (primary) hypertension (7) DMII (diabetes mellitus, type 2) Current Visit: No Status: Chronic Qualifiers: Diabetes mellitus oysterman insulin use: unspecified chcf insulin use status Diabetes mellitus complication status: with unspecified complications Qualified Code(s): E11.8 - Type 2 diabetes mellitus with unspecified complications (8) Asthma Current Visit: No Status: Chronic Qualifiers: Asthma severity: unspecified severity Asthma persistence: unspecified Asthma complication type: unspecified Qualified Code(s): J45.909 - Unspecified asthma, uncomplicated (9) Chronic pain Current Visit: No Status: Chronic Qualifiers: Chronic pain type: other chronic pain Qualified Code(s): G89.29 - Other chronic pain (10) Anxiety Current Visit: No Status: Chronic (11) Acute kidney injury Current Visit: Yes Status: Acute (12) Hypocalcemia Current Visit: Yes Status: Acute (13) Slurred speech Current Visit: Yes Status: Acute (14) IVONE (obstructive sleep apnea) Current Visit: Yes Status: Acute (15) Altered mental status Current Visit: Yes Status: Acute Qualifiers: Altered mental status type: unspecified Qualified Code(s): R41.82 - Altered mental status, unspecified Subjective Principal diagnosis: LESLIE on CKD. Interval history: Patient was seen this morning doing well without complaints. Afebrile vital signs stable. Operative extremity: Neurovascularly intact Dressing clean dry and intact Calves nontender erythema improving around knee. Patient's creatinine is continuing to increase, patient's transferred to the medical service for treatment of his kidney injury. We will continue to follow the patient as documentum consultant. Objective Vital signs: Vital Signs Temp Pulse Resp BP Pulse Ox 01/11/18 03:18 98.7 F 99 20 114/64 96 01/11/18 00:51 99.0 F 80 16 96/59 98 01/10/18 21:32 99.2 F 98 16 122/71 96 01/10/18 21:17 99.3 F 88 16 94/63 95 01/10/18 21:11 99.3 F 88 16 94/63 95 01/10/18 20:02 98.8 F 119 18 100/64 98 01/10/18 17:51 99.8 F H 108 22 108/57 01/10/18 17:36 99.9 F H 98 21 111/45 01/10/18 11:25 99.4 F 98 16 163/100 94 01/10/18 07:19 99.1 F 99 18 124/74 98 Intake and Output 01/10/18 01/10/18 01/11/18 15:59 23:59 07:59 Intake Total 301 / 301 500 / 500 Output Total 0 / 0 775 / 775 Balance 301 / 301 -275 / -275 Intake: Oral 0 / 0 200 / 200 Blood Product 301 / 301 300 / 300 Rbcs Leuko Poor As-1 Unit 301 / 301 [id number] Rbcs Leuko Poor As-1 Unit 0 / 0 300 / 300 [id number] Output: Urine 475 / 475 Catheter 0 / 0 300 / 300 Other: Blood Glucose* 134 203 - Labs CBC & BMP: 01/11/18 04:40 01/11/18 04:40 Labs: Abnormal lab results RBC 3.04 M/mcL (4.19-5.50) L 01/11/18 04:40 Hgb 9.3 g/dL (12.9-16.9) L 01/11/18 04:40 Hct 28.3 % (37.5-50.1) L 01/11/18 04:40 ABG pO2 81 mmHg (85-104) L 01/10/18 17:01 ABG Base Excess -3 mEq/L (-2 to 3) L 01/10/18 17:01 Sodium 132 mEq/L (136-145) L 01/11/18 04:40 BUN 87 mg/dL (8-23) H 01/11/18 04:40 Creatinine 3.54 mg/dL (0.70-1.30) H 01/11/18 04:40 Est GFR ( Amer) 21 (> 60) L 01/11/18 04:40 Est GFR (Non-Af Amer) 17 (> 60) L 01/11/18 04:40 Glucose 122 mg/dL (70-105) H 01/11/18 04:40 POC Glucose 203 mg/dL (70-99) H 01/10/18 20:55 Calculated Osmolality 302 (280-300) H 01/11/18 04:40 Uric Acid 8.2 mg/dL (2.3-7.6) H 01/06/18 14:33 Calcium 8.5 mg/dL (8.6-10.3) L 01/11/18 04:40 Phosphorus 5.9 mg/dL (2.7-4.5) H 01/11/18 04:40 Iron 18 mcg/dL (65-175) L 01/08/18 00:53 % Saturation 7 % (20-55) L 01/08/18 00:53 Transferrin 196 mg/dL (203-362) L 01/08/18 00:53 ALT 4 Units/L (7-52) L 01/08/18 14:07 Alkaline Phosphatase 119 Units/L (34-104) H 01/08/18 14:07 Serum Total Protein 5.6 g/dL (6.4-8.9) L 01/08/18 14:07 Albumin 2.8 g/dL (3.5-5.7) L 01/08/18 14:07 Albumin/Globulin Ratio 1.0 (1.1-2.2) L 01/08/18 14:07 Vitamin B12 179 pg/mL (250-1100) L 01/08/18 00:53 25-OH Vitamin D Total 13 ng/mL (30-80) L 01/08/18 00:53 Vit D 1,25-Dihydroxy 15.7 pg/mL (19.9-79.3) L 01/06/18 08:44 PTH Intact 196.3 pg/ml (10.0-65.0) H 01/08/18 00:53 Urine Clarity Cloudy (Clear) A 01/08/18 17:35 Urine Microscopic RBC 5-15 per hpf (0-3) H 01/08/18 17:35 Ur Squamous Epith Cells Moderate per lpf (None-Few) H 01/08/18 17:35 - VTE Documentation of Mechanical Device: Venous foot pump, device Consult Discharge Plan - Plan Referrals: Ange Rogel, SENIOR FUNCTIONAL ANALYST [Primary Care Provider] -
[2018-01-11] MEDS: Insulin LISPRO 300 UNITS/3 ML VIAL SQ SCH ×4 (07:38→20:12)
[2018-01-11] MEDS ORDERED: Cyanocobalamin (B-12) 1,000 MCG/ML VIAL IM ONE (07:58)
[2018-01-11] MEDS: Thiamine (B-1) 100 MG TABLET PO SCH (08:08)
[2018-01-11] MEDS: Cyanocobalamin (B-12) 1,000 MCG TABLET PO SCH (08:08)
[2018-01-11] MEDS: Apixaban 5 MG TABLET PO SCH (08:08)
[2018-01-11] MEDS: Gabapentin 300 MG CAPSULE PO SCH ×2 (08:08)
[2018-01-11] MEDS: Doxycycline 100 MG CAPSULE PO SCH ×2 (08:08→20:18)
[2018-01-11 09:40] LABS: Myeloperoxidase Ab 0 AU/mL (0-19); Serine Protease-3 Antibody 1 AU/mL (0-19)
--- NOTE | 2018-01-11 10:30 | Nephrology Progress Note ---
Date of Encounter: 01/11/18 Time of Encounter: 10:28 - Assessment and Plan (1) Acute kidney injury Current Visit: Yes Status: Acute Mr. Spears is an LESLIE on CKD in the setting of previous NSAID use, recent surgery with hypotension, and use of Bactrum. Scr 3.5 GFR 17. Potassium 4.9. (2) Status post total knee replacement, left Current Visit: Yes Status: Acute Per Ortho team. (3) Atrial fibrillation Current Visit: Yes Status: Chronic Per primary team, rate controlled at this time. Qualifiers: Atrial fibrillation type: unspecified Qualified Code(s): I48.91 - Unspecified atrial fibrillation (4) Altered mental status Current Visit: Yes Status: Acute Unsure of baseline, however granddaughter states he is usually "not like this". Ammonia level normal. Unclear what is causing his AMS. Staff reports that patient is more confused than yesteday, he is hallucinating and pulling at lines. Bed alarm is on. Qualifiers: Altered mental status type: unspecified Qualified Code(s): R41.82 - Altered mental status, unspecified (5) Anemia Current Visit: Yes Status: Acute Most likely a combination of post operative time and LESLIE. 2 Units transfued yesterday. Hgb 9.3. Iron and Vitamin B 12 replacement already started. Check Hgb tomorrow. Qualifiers: Anemia type: iron deficiency Iron deficiency anemia type: other iron deficiency Qualified Code(s): D50.8 - Other iron deficiency anemias Subjective Principal diagnosis: LESLIE on CKD. Interval history: Pt seen and examined. In no distress, resting comfortably. Objective - Vital Signs Vital signs: Vital Signs Temp Pulse Resp BP Pulse Ox 01/11/18 08:10 93 01/11/18 07:08 98.7 F 103 20 116/64 95 01/11/18 03:18 98.7 F 99 20 114/64 96 01/11/18 00:51 99.0 F 80 16 96/59 98 01/10/18 21:32 99.2 F 98 16 122/71 96 01/10/18 21:17 99.3 F 88 16 94/63 95 01/10/18 21:11 99.3 F 88 16 94/63 95 01/10/18 20:02 98.8 F 119 18 100/64 98 01/10/18 17:51 99.8 F H 108 22 108/57 01/10/18 17:36 99.9 F H 98 21 111/45 01/10/18 11:25 99.4 F 98 16 163/100 94 Intake and Output 01/10/18 01/11/18 01/11/18 23:59 07:59 15:59 Intake Total 301 / 301 500 / 500 360 / 360 Output Total 150 / 150 775 / 775 300 / 300 Balance 151 / 151 -275 / -275 60 / 60 Intake: Oral 0 / 0 200 / 200 360 / 360 Blood Product 301 / 301 300 / 300 Rbcs Leuko Poor As-1 Unit 301 / 301 [id number] Rbcs Leuko Poor As-1 Unit 0 / 0 300 / 300 [id number] Output: Urine 475 / 475 Catheter 150 / 150 300 / 300 300 / 300 Other: Meal Breakfast Percent of Meal Consumed 95% Blood Glucose* 203 104 - General Appearance General appearance: Present: obese EENT: Present: ATNC Neck: Present: supple Respiratory: Present: wheezing Cardiology: Present: edema (noted to left lower extremity. ), normal S1, normal S2 Gastrointestinal: Present: normoactive bowel sounds, no tenderness, no guarding Integumentary: Present: warm and dry, erythema (left knee drsg c/d/i. erythema noted to be receeding. ) Neurologic: Present: confused (Appears to be more confused than yesterday. ) Psychiatric: Present: mood/affect appropriate (Confused. ) - Lab 01/11/18 04:40 01/11/18 04:40 Most recent lab results ABG pH 7.32 pH Units (7.32-7.45) 01/10/18 17:01 ABG pCO2 44 mmHg (35-45) 01/10/18 17:01 ABG pO2 81 mmHg (85-104) L 01/10/18 17:01 ABG HCO3 23 mEq/L (21-27) 01/10/18 17:01 ABG O2 Saturation 95 % (95-98) 01/10/18 17:01 Calcium 8.5 mg/dL (8.6-10.3) L 01/11/18 04:40 Phosphorus 5.9 mg/dL (2.7-4.5) H 01/11/18 04:40 Magnesium 2.4 mg/dL (1.6-2.6) 01/11/18 04:40 Urine Creatinine 111 mg/dL 01/06/18 12:55 Urine Sodium 40.6 mEq/L 01/10/18 23:03 - VTE Documentation of Mechanical Device: Venous foot pump, device Consult Discharge Plan - Plan Referrals: Ange Rogel, MEDICAL CLERK [Primary Care Provider] -
--- NOTE | 2018-01-11 11:00 | Neurology - Consult Note ---
Date of Encounter: 01/11/18 Time of Encounter: 10:50 Assessment and Plan (1) Metabolic encephalopathy Current Visit: Yes Status: Acute Patient's neuro exam is nonfocal and nonlateralizing. On exam he appears to have asterixis. CT of the head is negative. Patient's B12 was 179 and is being replaced. Folate was within normal limits. Ammonia within normal limits. Patient had subacute onset of confusion in the last 24-48 hours. His consciousness is waxing and waning. This is more likely to be delirium, encephalopathy secondary to likely secondary to combination of worsening renal function (uremia), anemia, as status post surgery. Less likely to be neurological pathology. No further testing necessary from neurology perspective. History of Present Illness Chief complaint: left knee replacement HPI: Mr. Spears is a 72 year old male presented for outpatient left knee replacement on 01/03/18. On postop day 3 patient was seen to have worsening creatinine and weakness. Patient has developed worsening kidney function since his surgery. Serum creatinine has increased from 1.8-2 of 3.54 along with decrease in urinary output. Nephrology reported that aching I likely secondary to previous NSAID use, status post surgery with hypotension and recent use of Bactrim. Patient was also anemic after the replacement had 2 units of packed red blood cells infused. Neurology was consulted on 01/10/2018 for confusion. Patient developed confusion in the last 24-48 hours. He was pulling out IV lines, seeing hallucinations. CT of the head was negative for any acute changes. This morning patient is awake and alert and oriented to self, time, situation. He denies headache, double vision, vision changes, difficulty swallowing, numbness , tingling, weakness, slurred speech. He denies history of seizures, head trauma but does report history of stroke, however there are no records of this in the EMR. Patient has a history of atrial fibrillation and is anticoagulated with L Arroyo and rate controlled with Coreg. Past Med Surg Social Fam HX - Past Medical History Medical history: atrial fibrillation, diabetes, GERD, hyperlipidemia, hypertension Psychiatric history: anxiety, depression - Past Surgical History Surgical History: orthopedic, other - Social History Smoking Status: Current every day smoker Packs per day: 1 Smokeless Tobacco Status: No Alcohol use: none Drug use: none Medications and Allergies OxyCODONE Immed Rel [Roxicodone 5 MG] 5 mg PO Q6HR PRN 7 Days #28 tablet [Rx] Albuterol Sulfate [Ventolin Hfa] 2 puff IH Q4-6H PRN 01/03/18 [History] Apixaban [Eliquis] 5 mg PO BID 01/03/18 [History] Carvedilol 12.5 mg PO BID 01/03/18 [History] Furosemide [Lasix] 40 mg PO DAILY 01/03/18 [History] HYDROcodone/Acet 5/325 mg [[place] 5-325 mg] 1 tab PO Q6H PRN 01/03/18 [History] Insulin ASPART [NovoLOG] 10 unit SQ TIDWM 01/03/18 [History] Insulin DETEMIR [Levemir] 50 unit SQ HS 01/03/18 [History] Lisinopril [Zestril] 10 mg PO DAILY 01/03/18 [History] Sertraline [Zoloft] 100 mg PO DAILY 01/03/18 [History] Simvastatin [Zocor] 20 mg PO HS 01/03/18 [History] clonazePAM [Klonopin] 0.5 mg PO HS PRN 01/03/18 [History] 3 Allergy/AdvReac Type Severity Reaction Status Date / Time acetaminophen Allergy Hives Verified 01/03/18 12:27 [From Darvocet-N 100] propoxyphene Allergy Hives Verified 01/03/18 12:27 [From Darvocet-N 100] All Systems: The remainder of the systems were reviewed and are negative Review of Systems: Constitutional: Denies fever, chills HEENT: Denies headache, vision changes, neck pain, sore throat, rhinorrhea Heart: Denies chest pain palpitations Lungs: Denies shortness of breath cough Abdomen: Denies abdominal pain nausea vomiting diarrhea Back: Denies back pain Kidney: Denies dysuria, hematuria Skin: Denies rash, lesions Extremities: Denies swelling, pain Neuro: Denies numbness and tingling Physical Examination - Vital Signs Vital Signs: Initial Vital Signs Temp Pulse Resp BP Pulse Ox 98.0 F 94 18 142/81 99 01/03/18 11:12 01/03/18 11:12 01/03/18 11:12 01/03/18 11:12 04/23/18 11:12 - Exam Exam: General: Pleasant without distress, easily woken HEENT: Head atraumatic, normocephalic, EOMI, PERRL, neck nontender to palpation , absent lymphadenopathy, dry mucous membranes Heart: Regular rate and rhythm with no murmur Lungs: Clear to auscultation bilaterally Abdomen: Soft nontender, nondistended positive bowel sounds. Asterixis Skin: warm and dry, absent rash Extremities: mild edema LLE, left knee scar intact without discharge. RLE does not have edema. Vascular: Pedal and radial pulses 2 out of 4 - Constitutional General appearance: comfortable - Neurologic Sensorimotor examination: intact Detailed motor examination: other (LLE strength not assesed due to recent surgery) Motor examination - right side: 5/5: deltoids, biceps, triceps, wrist flexion, wrist extension, apprentice, hip flexors, tibialis Anterior, quadriceps, toe extension (EHL), plantarflexion Motor examination - left side: 5/5: deltoids, biceps, triceps, wrist flexion, wrist extension Detailed sensory examination: intact Reflex and gait examination: other (patella relfexes not assessed b/l due to b/ l knee replacement. right achillis 2/4) Reflexes: Biceps: 2+, Triceps: 2+, Brachioradialis: 2+ Mental Status Examination: awake, alert, oriented to person, oriented to place, oriented to time, follows commands appropriately, answers questions appropriately, no agnosia, no aphasia, no aproxia Cranial nerve examination: PERRL, EOMI, visual dang intact, sensory to face intact, mastication intact, no facial asymmetry is present, no dysarthria, hearing is intact symmetrically, flexes SCM and trapezius muscles symmetrically with full power, tongue protrudes midline, no atrophy or facial fasiculations present Cerebellar examination: no dysmetria, performs finger to nose and heel to pereira symmetrically without ataxia, no difficulty with rapid alternating movements Results - Laboratory Findings CBC and BMP: 01/11/18 04:40 01/11/18 04:40 Abnormal lab findings: Abnormal lab results RBC 3.04 M/mcL (4.19-5.50) L 01/11/18 04:40 Hgb 9.3 g/dL (12.9-16.9) L 01/11/18 04:40 Hct 28.3 % (37.5-50.1) L 01/11/18 04:40 ABG pO2 81 mmHg (85-104) L 01/10/18 17:01 ABG Base Excess -3 mEq/L (-2 to 3) L 01/10/18 17:01 Sodium 132 mEq/L (136-145) L 01/11/18 04:40 BUN 87 mg/dL (8-23) H 01/11/18 04:40 Creatinine 3.54 mg/dL (0.70-1.30) H 01/11/18 04:40 Est GFR ( Amer) 21 (> 60) L 01/11/18 04:40 Est GFR (Non-Af Amer) 17 (> 60) L 01/11/18 04:40 Glucose 122 mg/dL (70-105) H 01/11/18 04:40 POC Glucose 104 mg/dL (70-99) H 01/11/18 07:16 Calculated Osmolality 302 (280-300) H 01/11/18 04:40 Uric Acid 8.2 mg/dL (2.3-7.6) H 01/06/18 14:33 Calcium 8.5 mg/dL (8.6-10.3) L 01/11/18 04:40 Venous Ioniz Calcium 1.10 mmol/L (1.15-1.35) L 01/11/18 07:54 Phosphorus 5.9 mg/dL (2.7-4.5) H 01/11/18 04:40 Iron 18 mcg/dL (65-175) L 01/08/18 00:53 % Saturation 7 % (20-55) L 01/08/18 00:53 Transferrin 196 mg/dL (203-362) L 01/08/18 00:53 ALT 4 Units/L (7-52) L 01/08/18 14:07 Alkaline Phosphatase 119 Units/L (34-104) H 01/08/18 14:07 Serum Total Protein 5.6 g/dL (6.4-8.9) L 01/08/18 14:07 Albumin 2.8 g/dL (3.5-5.7) L 01/08/18 14:07 Albumin/Globulin Ratio 1.0 (1.1-2.2) L 01/08/18 14:07 Vitamin B12 179 pg/mL (250-1100) L 01/08/18 00:53 25-OH Vitamin D Total 13 ng/mL (30-80) L 01/08/18 00:53 Vit D 1,25-Dihydroxy 15.7 pg/mL (19.9-79.3) L 01/06/18 08:44 PTH Intact 196.3 pg/ml (10.0-65.0) H 01/08/18 00:53 Urine Clarity Cloudy (Clear) A 01/08/18 17:35 Urine Microscopic RBC 5-15 per hpf (0-3) H 01/08/18 17:35 Ur Squamous Epith Cells Moderate per lpf (None-Few) H 01/08/18 17:35 Consult Discharge Plan - Plan Referrals: Ange Rogel, CR[facility] PICKER [Primary Care Provider] -
[2018-01-11] MEDS: 0.9 % Sodium Chloride 1,000 ML IVC SCH (16:05)
--- NOTE | 2018-01-11 18:14 | Event Note ---
Date of Encounter: 01/11/18 Time of Encounter: 10:00 I examined this patient and my medical decision-making was reviewed with the Resident Physician on 01/11/18. I agree with the documented findings, disposition and treatment plan as described except to the extent set forth below. Mr Spears is currently admitted for acute renal failure follow total knee replacement. He remains moderate to high risk due to potential for worsening clinical status. Mr Spears is more confused today. He is agitated at times. No fever or chills. Renal function worsened today. Exam alert but disoriented. Mucus membranes dry Heart irreg no wheeze Abd soft no new edema I/P 1. Acute renal failure due to ATN - worsened today. 2. Acute metabolic encephalopathy - worsening. 3. Recent TKR 4. Chronic a fib - hold eliquis for possible intervention 5. CAD 6. HTN 7. DM Further diagnoses and plan per progress note of today.
--- NOTE | 2018-01-11 19:03 | Internal Med Progress Note ---
<Abimbola Bucio - Last Filed: 01/11/18 20:54> Date of Encounter: 01/11/18 Time of Encounter: 10:00 - Assessment and plan (1) Arthritis of knee, left Current Visit: No Status: Chronic Assessment and plan: s/p Left total knee replacement (2) Status post total knee replacement, left Current Visit: Yes Status: Acute Assessment and plan: s/p total knee replacement 01/03/18 -ortho managing (3) Atrial fibrillation Current Visit: Yes Status: Chronic Assessment and plan: Rate controlled Afib, stable Coreg 12.5 mg BID On Eliquis for anticoagulation--will monitor and adjust dose based on renal function Qualifiers: Atrial fibrillation type: unspecified Qualified Code(s): I48.91 - Unspecified atrial fibrillation (4) CAD (coronary artery disease) Current Visit: No Status: Chronic Assessment and plan: Stable - On home meds coreg, simvastatin - continue to hold Lasix and lisinopril d/t worsening renal function - Monitor hgb, if < 8.0 transfuse pRBC Qualifiers: Coronary Disease-Associated Artery/Lesion type: unspecified vessel or lesion type [place] vs. transplanted heart: unspecified whether [place] or transplanted heart Associated angina: angina presence unspecified Qualified Code(s): I25.10 - Atherosclerotic heart disease of [place] coronary artery without angina pectoris (5) HTN (hypertension) Current Visit: No Status: Chronic Assessment and plan: Stable, known h/o HTN - Continue current BP management Qualifiers: Hypertension type: essential hypertension Qualified Code(s): I10 - Essential (primary) hypertension (6) DMII (diabetes mellitus, type 2) Current Visit: Yes Status: Chronic Assessment and plan: DM II currently controlled - 30 units levemir - sliding scale insulin, medium dose - ACHS glucose checks - diabetic diet Qualifiers: Diabetes mellitus manager terminal insulin use: unspecified manager terminal insulin use status Diabetes mellitus complication status: with unspecified complications Qualified Code(s): E11.8 - Type 2 diabetes mellitus with unspecified complications (7) Asthma Current Visit: Yes Status: Chronic Assessment and plan: Stable Continue current inhaler Supplemental O2 Qualifiers: Asthma severity: unspecified severity Asthma persistence: unspecified Asthma complication type: unspecified Qualified Code(s): J45.909 - Unspecified asthma, uncomplicated (8) Acute on chronic renal failure Current Visit: Yes Status: Acute Qualifiers: Acute renal failure type: unspecified Chronic kidney disease stage: stage 3 (moderate) Qualified Code(s): N17.9 - Acute kidney failure, unspecified; N18.3 - Chronic kidney disease, stage 3 (moderate); N18.3 - Chronic kidney disease, stage 3 (moderate) (9) Anemia Current Visit: Yes Status: Acute Assessment and plan: Chronic anemia d/t CKD Stage II Acute on chronic d/t recent left total knee replacement Iron studies show iron deficiency anemia Received 2 units pRBCs, Hgb 9.3 today - Follow Hgb on AM labs - Continue iron supplement Qualifiers: Anemia type: iron deficiency Iron deficiency anemia type: other iron deficiency Qualified Code(s): D50.8 - Other iron deficiency anemias (10) Daytime somnolence Current Visit: Yes Status: Acute Assessment and plan: Hypercarbia possible, but seems less likely given pCO2 44 on ABG Uremia may be contributing - CPAP at night and during rest (11) IVONE (obstructive sleep apnea) Current Visit: Yes Status: Acute Assessment and plan: CPAP at night and during rest (12) Hypocalcemia Current Visit: Yes Status: Acute Assessment and plan: Ionized calcium 1.1, may be related to hypophosphatemia - Related to CKD likely - Will replenish as necessary. (13) Altered mental status Current Visit: Yes Status: Acute Assessment and plan: Etiology unclear, but high suspicion it's related to uremia, supported by asterixis on exam - BUN continues upward trend, 87 today - Doesn't appear to be infectious; white count consistently WNL since and pt has been afebrile - ABG results relatively unremarkable showed pCO2 44 and pO2 81 - No further neurologic testing at this time, per neurology consult -Pt should be on CPAP at night and during rest -Continue NS IVF hydration -Nephrology recs appreciated Qualifiers: Altered mental status type: unspecified Qualified Code(s): R41.82 - Altered mental status, unspecified - Time Spent With Patient Total time spent is greater than 50% in coordination of care (as documented) at patient's floor/unit and/or counseling patient: - Subjective Interval history: Pt seen and examined this morning at bedside. Unable to obtain accurate ROS as pt fell asleep multiple times while I asked him questions. The answers he gave to many questions were not appropriate. He was not oriented to place and orientation to time was questionable. - Constitutional Vitals: Temp Pulse Resp BP Pulse Ox 99.3 F 111 20 120/73 96 01/11/18 17:16 01/11/18 17:16 01/11/18 17:16 01/11/18 17:16 01/11/18 17:16 Exam: General: No acute distress, resting in bed, sleeping HEENT: head normocephalic/atraumatic, EOMI, sclera anicteric, moist mucus membranes Neck: Supple, FROM Cardio: RRR, no murmurs, +S1/S2, radial pulses 2+ bilateral Pulm: difficulty auscultating posterior lung dang d/t poor pt cooperation, non -labored respirations, no wheezes, faint rales right lung base Abdomen: soft, nontender, BS+, no rebound, rigidity, guarding Extremities: LLE +1 pitting edema, LLE in supportive brace, no cyanosis, foot pumps Back: normal appearance on inspection Neuro: oriented to person, not oriented to place, questionable orientation to time, no focal deficit, no facial droop, no speech deficit, CN II-XII grossly intact, moves all extremities spontaneously Internal Medicine: Result - Labs CBC & Chem 7: 01/11/18 04:40 01/11/18 04:40 Labs: Short CBC 01/11/18 Range/Units 04:40 WBC 7.1 (4.3-11.1) K/mcL Hgb 9.3 L (12.9-16.9) g/dL Hct 28.3 L (37.5-50.1) % Plt Count 183 (140-400) K/mcL Neutrophils # 5.2 (1.6-8.9) K/mcL BMP 01/11/18 04:40 Sodium 132 L Potassium 4.9 Chloride 101 Carbon Dioxide 23 BUN 87 H Creatinine 3.54 H Glucose 122 H Calcium 8.5 L Cardiac Enzymes 01/11/18 Range/Units 04:40 Troponin I < 0.03 (< 0.04) ng/mL - ABG Interpretation ABG results: ABG ABG pH 7.32 pH Units (7.32-7.45) 01/10/18 17:01 ABG pCO2 44 mmHg (35-45) 04/30/18 17:01 ABG pO2 81 mmHg (85-104) L 01/10/18 17:01 ABG O2 Saturation 95 % (95-98) 01/10/18 17:01 - VTE Documentation of Mechanical Device: Venous foot pump, device Consult Discharge Plan - Plan Referrals: Ange Rogel, [employer] [Primary Care Provider] - <Rickie Rivas - Last Filed: 01/12/18 08:56> Date of Encounter: 01/11/18 - Assessment and plan (1) Arthritis of knee, left Current Visit: No Status: Chronic (2) Status post total knee replacement, left Current Visit: Yes Status: Acute (3) Atrial fibrillation Current Visit: Yes Status: Chronic Qualifiers: Atrial fibrillation type: unspecified Qualified Code(s): I48.91 - Unspecified atrial fibrillation (4) CAD (coronary artery disease) Current Visit: No Status: Chronic Qualifiers: Coronary Disease-Associated Artery/Lesion type: unspecified vessel or lesion type [place] vs. transplanted heart: unspecified whether [place] or transplanted heart Associated angina: angina presence unspecified Qualified Code(s): I25.10 - Atherosclerotic heart disease of [place] coronary artery without angina pectoris (5) HTN (hypertension) Current Visit: No Status: Chronic Qualifiers: Hypertension type: essential hypertension Qualified Code(s): I10 - Essential (primary) hypertension (6) DMII (diabetes mellitus, type 2) Current Visit: Yes Status: Chronic Qualifiers: Diabetes mellitus manager terminal insulin use: unspecified retirement insulin use status Diabetes mellitus complication status: with unspecified complications Qualified Code(s): E11.8 - Type 2 diabetes mellitus with unspecified complications (7) Asthma Current Visit: Yes Status: Chronic Qualifiers: Asthma severity: unspecified severity Asthma persistence: unspecified Asthma complication type: unspecified Qualified Code(s): J45.909 - Unspecified asthma, uncomplicated (8) Acute on chronic renal failure Current Visit: Yes Status: Acute Qualifiers: Acute renal failure type: unspecified Chronic kidney disease stage: stage 3 (moderate) Qualified Code(s): N17.9 - Acute kidney failure, unspecified; N18.3 - Chronic kidney disease, stage 3 (moderate); N18.3 - Chronic kidney disease, stage 3 (moderate) (9) Hypocalcemia Current Visit: Yes Status: Acute (10) Anemia Current Visit: Yes Status: Acute Qualifiers: Anemia type: iron deficiency Iron deficiency anemia type: other iron deficiency Qualified Code(s): D50.8 - Other iron deficiency anemias (11) Daytime somnolence Current Visit: Yes Status: Acute (12) IVONE (obstructive sleep apnea) Current Visit: Yes Status: Acute (13) Altered mental status Current Visit: Yes Status: Acute Qualifiers: Altered mental status type: unspecified Qualified Code(s): R41.82 - Altered mental status, unspecified - Time Spent With Patient Total time spent is greater than 50% in coordination of care (as documented) at patient's floor/unit and/or counseling patient: - Constitutional Vitals: Temp Pulse Resp BP Pulse Ox 98.6 F 112 16 130/81 92 01/12/18 07:19 01/12/18 07:19 01/12/18 07:19 01/12/18 07:19 01/12/18 07:19 Internal Medicine: Result - Labs CBC & Chem 7: 01/12/18 05:21 01/12/18 05:21 Labs: Short CBC 01/12/18 Range/Units 05:21 WBC 6.6 (4.3-11.1) K/mcL Hgb 9.1 L (12.9-16.9) g/dL Hct 27.3 L (37.5-50.1) % Plt Count 194 (140-400) K/mcL BMP 01/12/18 05:21 Sodium 134 L Potassium 4.8 Chloride 105 Carbon Dioxide 22 L BUN 81 H Creatinine 2.70 H Glucose 179 H Calcium 8.2 L - ABG Interpretation ABG results: ABG ABG pH 7.32 pH Units (7.32-7.45) 01/10/18 17:01 ABG pCO2 44 mmHg (35-45) 01/10/18 17:01 ABG pO2 81 mmHg (85-104) L 01/10/18 17:01 ABG O2 Saturation 95 % (95-98) 01/10/18 17:01 - Attending Attestation I examined this patient and my medical decision-making was reviewed with the Resident Physician on 01/11/18. I agree with the documented findings, disposition and treatment plan as described except to the extent set forth below. Please see event note of this date.
[2018-01-11] MEDS: Insulin DETEMIR 100 UNIT/ML X5UNITS SQ SCH (20:19)
[2018-01-12 05:56] LABS: Hematocrit 27.3 % (37.5-50.1); Hemoglobin 9.1 g/dL (12.9-16.9); Mean Corpuscular HGB Conc 33.3 g/dL (31.6-35.5); Mean Corpuscular Hemoglobin 31.2 pg (28.0-33.3); Mean Corpuscular Volume 93.5 fL (83.0-100.0); Mean Platelet Volume 11.3 fL (9.4-12.4); Platelet Count 194 K/mcL (140-400); Red Blood Count 2.92 M/mcL (4.19-5.50)
[2018-01-12 06:22] LABS: Calcium 8.2 mg/dL (8.6-10.3); Potassium 4.8 mEq/L (3.5-5.1)
[2018-01-12] MEDS: 0.9 % Sodium Chloride 1,000 ML IVC SCH ×4 (07:05→20:36)
[2018-01-12] MEDS ORDERED: *HR* OxyCODONE/APAP 5/325 TABLET PO PRN (07:19)
[2018-01-12] MEDS: Insulin LISPRO 300 UNITS/3 ML VIAL SQ SCH ×4 (07:45→20:36)
[2018-01-12] MEDS: Thiamine (B-1) 100 MG TABLET PO SCH (07:46)
[2018-01-12] MEDS: Cyanocobalamin (B-12) 1,000 MCG TABLET PO SCH (07:46)
[2018-01-12] MEDS: Doxycycline 100 MG CAPSULE PO SCH ×2 (07:46→20:13)
[2018-01-12] MEDS: *HR* OxyCODONE Immed Rel 5 MG TABLET PO PRN ×2 (07:50→15:49)
--- NOTE | 2018-01-12 10:11 | Nephrology Progress Note ---
Date of Encounter: 01/12/18 Time of Encounter: 10:10 - Assessment and Plan (1) Acute kidney injury Current Visit: Yes Status: Acute LESLIE from surgery, hypotension and CKD. Scr and GFR both improving. Scr 2.7 and GFR 23. Urine output 1999 from yesterday. 950 already for today. If Scr and urine output continue to improve, he might be able to go home from a renal standpoint. He will need to follow up with Dr. Conrad in 6-8 weeks. (2) Status post total knee replacement, left Current Visit: Yes Status: Acute Per Ortho team. (3) Atrial fibrillation Current Visit: Yes Status: Chronic Per primary team, rate controlled at this time. Qualifiers: Qualified Code(s): I48.91 - Unspecified atrial fibrillation (4) Altered mental status Current Visit: Yes Status: Acute Patient is much more alert today. A/O x 3 per exam. Continue to reorient and bed alarm on for safety. Qualifiers: Qualified Code(s): R41.82 - Altered mental status, unspecified (5) Anemia Current Visit: Yes Status: Acute Most likely a combination of post operative and LESLIE. Iron and Vitamin B 12 replacement already started. Hgb is stable at 9.1. Qualifiers: Qualified Code(s): D50.8 - Other iron deficiency anemias Subjective Principal diagnosis: LESLIE on CKD. Interval history: Pt seen and examined. In no distress, resting comfortably. Daughter at bedside. Objective - Vital Signs Vital signs: Vital Signs Temp Pulse Resp BP Pulse Ox 01/12/18 07:19 98.6 F 112 16 130/81 92 01/12/18 03:32 99.8 F H 109 16 131/69 95 01/11/18 23:20 99.5 F 104 16 110/70 96 01/11/18 19:48 98.4 F 101 16 131/68 93 01/11/18 17:16 99.3 F 111 20 120/73 96 01/11/18 11:08 98.1 F 97 20 108/76 93 Intake and Output 01/11/18 01/12/18 01/12/18 23:59 07:59 15:59 Intake Total 237 / 237 1000 / 1000 0 / 0 Output Total 1999 / 1999 0 / 0 Balance 237 / 237 -1000 / -1000 0 / 0 Intake: IV Fluids 1000 / 1000 0.9 % Sodium Chloride 1,000 ML 1000 / 1000 @ 75 mls/hr IVC [facility][id number] Rx #:[id number] Oral 237 / 237 0 / 0 Output: Urine 1999 0 / 0 Other: Weight 158.6 kg Blood Glucose* 197 168 Patient Weight 01/12/18 23:59 Weight 158.6 kg - General Appearance General appearance: Present: obese EENT: Present: ATNC, hearing intact, vision intact Neck: Present: supple Respiratory: Present: wheezing Cardiology: Present: no murmurs, edema (Trace bilaterally, +2 noted to LLE. ), irregular rhythm, normal S1, normal S2 Gastrointestinal: Present: normoactive bowel sounds Integumentary: Present: no rash, warm and dry, erythema (noted to LLE s/p replacement. ) Additional Comments: Much more alert today. A/O x 3. Psychiatric: Present: mood/affect appropriate, cooperative - Lab 01/12/18 05:21 01/12/18 05:21 Most recent lab results ABG pH 7.32 pH Units (7.32-7.45) 01/10/18 17:01 ABG pCO2 44 mmHg (35-45) 01/10/18 17:01 ABG pO2 81 mmHg (85-104) L 01/10/18 17:01 ABG HCO3 23 mEq/L (21-27) 01/10/18 17:01 ABG O2 Saturation 95 % (95-98) 01/10/18 17:01 Calcium 8.2 mg/dL (8.6-10.3) L 01/12/18 05:21 Phosphorus 5.9 mg/dL (2.7-4.5) H 01/11/18 04:40 Magnesium 2.4 mg/dL (1.6-2.6) 01/11/18 04:40 Urine Creatinine 111 mg/dL 01/06/18 12:55 Urine Sodium 40.6 mEq/L 01/10/18 23:03 - VTE Documentation of Mechanical Device: Venous foot pump, device Consult Discharge Plan - Plan Referrals: Ange Rogel, CINNAMON GRINDER [Primary Care Provider] -
--- NOTE | 2018-01-12 13:18 | Neurology Progress Note ---
Date of Encounter: 01/12/18 Time of Encounter: 13:15 Assessment and Plan (1) Altered mental status Current Visit: Yes Status: Acute Improving. Likely related to medical conditions, especially AKD on CKD and IVONE. Neurological examination nonfocal, although trace Asterixis still present, this would be consistent with improving renal function. From neurology perspective, no further testing needed. Will sign off at this time. Please call if any questions Qualifiers: Altered mental status type: unspecified Qualified Code(s): R41.82 - Altered mental status, unspecified Subjective Principal diagnosis: LESLIE on CKD. Interval history: Patient seen and examined. he is doing better today, denies significant discomforts He is oriented to time place and person able to spell. Wide awake and smiles. No focal deficits noted. Objective - Constitutional Vitals: Temp Pulse Resp BP Pulse Ox 97.8 F 108 16 113/57 94 01/12/18 10:54 01/12/18 12:41 01/12/18 10:54 01/12/18 12:41 01/12/18 10:54 - Neurological Exam Sensorimotor examination: Present: intact Motor Examination: Present: other (LLE strength not assesed due to recent surgery) Motor examination - right side: 5/5: deltoids, biceps, triceps, wrist flexion, wrist extension, inclusion internship, hip flexors, tibialis Anterior, quadriceps, toe extension (EHL), plantarflexion Motor examination - left side: 5/5: deltoids, biceps, triceps, wrist flexion, wrist extension, quadriceps, tibialis Anterior Sensation intact: Present: intact Reflex and gait examination: other (patella relfexes not assessed b/l due to b/ l knee replacement. right achillis 2/4) Mental Status Examination: Present: awake, alert, oriented to person, oriented to place, oriented to time, follows commands appropriately, answers questions appropriately, no agnosia, no aphasia, no aproxia Cranial nerve examination: Present: PERRL, EOMI, visual dang intact, sensory to face intact, mastication intact, no facial asymmetry is present, no dysarthria, hearing is intact symmetrically, flexes SCM and trapezius muscles symmetrically with full power, tongue protrudes midline, no atrophy or facial fasiculations present Cerebellar examination: Present: no dysmetria, performs finger to nose and heel to pereira symmetrically without ataxia, no difficulty with rapid alternating movements - VTE Documentation of Mechanical Device: Venous foot pump, device Results - Laboratory Findings CBC and BMP: 01/12/18 05:21 01/12/18 05:21 Abnormal lab findings: Abnormal lab results RBC 2.92 M/mcL (4.19-5.50) L 01/12/18 05:21 Hgb 9.1 g/dL (12.9-16.9) L 01/12/18 05:21 Hct 27.3 % (37.5-50.1) L 01/12/18 05:21 ABG pO2 81 mmHg (85-104) L 01/10/18 17:01 ABG Base Excess -3 mEq/L (-2 to 3) L 01/10/18 17:01 Sodium 134 mEq/L (136-145) L 01/12/18 05:21 Carbon Dioxide 22 mEq/L (23-29) L 01/12/18 05:21 BUN 81 mg/dL (8-23) H 01/12/18 05:21 Creatinine 2.70 mg/dL (0.70-1.30) H 01/12/18 05:21 Est GFR ( Amer) 28 (> 60) L 01/12/18 05:21 Est GFR (Non-Af Amer) 23 (> 60) L 01/12/18 05:21 BUN/Creatinine Ratio 30 (6-26) H 01/12/18 05:21 Glucose 179 mg/dL (70-105) H 01/12/18 05:21 POC Glucose 164 mg/dL (70-99) H 01/12/18 10:56 Calculated Osmolality 307 (280-300) H 01/12/18 05:21 Uric Acid 8.2 mg/dL (2.3-7.6) H 01/06/18 14:33 Calcium 8.2 mg/dL (8.6-10.3) L 01/12/18 05:21 Venous Ioniz Calcium 1.10 mmol/L (1.15-1.35) L 01/11/18 07:54 Phosphorus 5.9 mg/dL (2.7-4.5) H 01/11/18 04:40 Iron 18 mcg/dL (65-175) L 01/08/18 00:53 % Saturation 7 % (20-55) L 01/08/18 00:53 Transferrin 196 mg/dL (203-362) L 01/08/18 00:53 ALT 4 Units/L (7-52) L 01/08/18 14:07 Alkaline Phosphatase 119 Units/L (34-104) H 01/08/18 14:07 Serum Total Protein 5.6 g/dL (6.4-8.9) L 01/08/18 14:07 Albumin 2.8 g/dL (3.5-5.7) L 01/08/18 14:07 Albumin/Globulin Ratio 1.0 (1.1-2.2) L 01/08/18 14:07 Vitamin B12 179 pg/mL (250-1100) L 01/08/18 00:53 25-OH Vitamin D Total 13 ng/mL (30-80) L 01/08/18 00:53 Vit D 1,25-Dihydroxy 15.7 pg/mL (19.9-79.3) L 01/06/18 08:44 PTH Intact 196.3 pg/ml (10.0-65.0) H 01/08/18 00:53 Urine Clarity Cloudy (Clear) A 01/08/18 17:35 Urine Microscopic RBC 5-15 per hpf (0-3) H 01/08/18 17:35 Ur Squamous Epith Cells Moderate per lpf (None-Few) H 01/08/18 17:35 Consult Discharge Plan - Plan Referrals: Ange Rogel, ELECTRIC POWER MACHINE OPERATOR [Primary Care Provider] -
--- NOTE | 2018-01-12 15:52 | Event Note ---
Date of Encounter: 01/12/18 Time of Encounter: 15:00 PCR- POD#9 01/03/18 Left robotic-assisted Total knee replacement Nieves PCR - Patient seen at bedside. Labwork and medications reviewed. Patient with improved SCr and urine output today. Nephro on board. Asterixis continues to be noted. Patient still somewhat confused about order of events however much improved regarding agitation and coherence. Pain control: Adequate Participating in PT. Knee in immobilizer -will d/c to night time use only until POD#14 All questions and concerns addressed from patient's daughter at bedside as well as patient. Educated on use of incentive spirometer, ambulation, and hydration. Patient educated on post-operative restrictions and care. Addressed: see above. D/C plan: ECF - per patient's daughter, possibly [facility], per record, possibly tomorrow.
--- NOTE | 2018-01-12 16:36 | Internal Med Progress Note ---
<Rickie Rivas - Last Filed: 01/12/18 18:24> Date of Encounter: 01/12/18 - Assessment and plan (1) Acute on chronic renal failure Current Visit: Yes Status: Suspected Qualifiers: Acute renal failure type: with acute tubular necrosis Chronic kidney disease stage: stage 3 (moderate) Qualified Code(s): N17.0 - Acute kidney failure with tubular necrosis; N18.3 - Chronic kidney disease, stage 3 (moderate ); N18.3 - Chronic kidney disease, stage 3 (moderate) (2) Arthritis of knee, left Current Visit: No Status: Chronic (3) Status post total knee replacement, left Current Visit: Yes Status: Acute (4) Atrial fibrillation Current Visit: Yes Status: Chronic Qualifiers: Atrial fibrillation type: chronic Qualified Code(s): I48.2 - Chronic atrial fibrillation (5) CAD (coronary artery disease) Current Visit: No Status: Chronic Qualifiers: Coronary Disease-Associated Artery/Lesion type: [place] artery [place] vs. transplanted heart: [place] heart Associated angina: without angina Qualified Code(s): I25.10 - Atherosclerotic heart disease of [place] coronary artery without angina pectoris (6) HTN (hypertension) Current Visit: No Status: Chronic Qualifiers: Hypertension type: essential hypertension Qualified Code(s): I10 - Essential (primary) hypertension (7) DMII (diabetes mellitus, type 2) Current Visit: Yes Status: Chronic Qualifiers: Diabetes mellitus buttermaker insulin use: with buttermaker use Diabetes mellitus complication status: with hyperglycemia Qualified Code(s): E11.65 - Type 2 diabetes mellitus with hyperglycemia; Z79.4 - ferry terminal agent (current) use of insulin; Z79.4 - ferry terminal agent (current) use of insulin; Z79.4 - ferry terminal agent (current ) use of insulin; Z79.4 - detention (current) use of insulin (8) Asthma Current Visit: Yes Status: Chronic Qualifiers: Asthma severity: mild Asthma persistence: intermittent Asthma complication type: uncomplicated Qualified Code(s): J45.20 - Mild intermittent asthma, uncomplicated (9) Hypocalcemia Current Visit: Yes Status: Acute (10) Anemia Current Visit: Yes Status: Acute Qualifiers: Anemia type: iron deficiency Iron deficiency anemia type: other iron deficiency Qualified Code(s): D50.8 - Other iron deficiency anemias (11) Daytime somnolence Current Visit: Yes Status: Acute (12) IVONE (obstructive sleep apnea) Current Visit: Yes Status: Acute (13) Altered mental status Current Visit: Yes Status: Acute Qualifiers: Altered mental status type: unspecified Qualified Code(s): R41.82 - Altered mental status, unspecified - Time Spent With Patient Total time spent is greater than 50% in coordination of care (as documented) at patient's floor/unit and/or counseling patient: - Constitutional Vitals: Temp Pulse Resp BP Pulse Ox 98.3 F 106 16 107/66 97 01/12/18 15:59 01/12/18 15:59 01/12/18 17:52 01/12/18 15:59 01/12/18 17:52 Internal Medicine: Result - Labs CBC & Chem 7: 01/12/18 05:21 01/12/18 05:21 Labs: Short CBC 01/12/18 Range/Units 05:21 WBC 6.6 (4.3-11.1) K/mcL Hgb 9.1 L (12.9-16.9) g/dL Hct 27.3 L (37.5-50.1) % Plt Count 194 (140-400) K/mcL BMP 01/12/18 05:21 Sodium 134 L Potassium 4.8 Chloride 105 Carbon Dioxide 22 L BUN 81 H Creatinine 2.70 H Glucose 179 H Calcium 8.2 L - ABG Interpretation ABG results: ABG ABG pH 7.32 pH Units (7.32-7.45) 01/10/18 17:01 ABG pCO2 44 mmHg (35-45) 01/10/18 17:01 ABG pO2 81 mmHg (85-104) L 01/10/18 17:01 ABG O2 Saturation 95 % (95-98) 01/10/18 17:01 Consult Discharge Plan - Plan Referrals: Ange Rogel SLIDE FASTENERS INSPECTOR [Primary Care Provider] - - Attending Attestation I examined this patient and my medical decision-making was reviewed with the Resident Physician on 01/12/18. I agree with the documented findings, disposition and treatment plan as described except to the extent set forth below. Mr Spears is currently admitted for acute renal failure and encephalopathy. He remains moderate to high risk due to potential for worsening clinical status. Mr Spears appears to be more oriented today. Did not sleep well last night. Denies pain. No fever. Exam alert Comfortable Mucus membranes dry Heart distant Lungs diminished Abd soft Cr 2.7 I/P 1. ARF most likely ATN 2. Encephalopathy Further diagnoses and plan as above. <Abimbola Bucio - Last Filed: 01/12/18 19:59> Date of Encounter: 01/12/18 Time of Encounter: 10:40 - Assessment and plan (1) Acute on chronic renal failure Current Visit: Yes Status: Suspected Assessment and plan: Improving Baseline stage III CKD, likely d/t diabetic nephropathy Etiology likely a combination of hypoperfusion and exposure to multiple nephrotoxins in the setting of pre-existing CKD Siegel catheter for strict I/O's shows improved UOP with close monitoring for possibility of repurfusion autodiuresis - Monitor electrolytes closely and replace PRN - continue NS @ 75mL/hr - nephrology following - avoiding nephrotoxins, renal dosing of abx/meds Qualifiers: Acute renal failure type: with acute tubular necrosis Chronic kidney disease stage: stage 3 (moderate) Qualified Code(s): N17.0 - Acute kidney failure with tubular necrosis; N18.3 - Chronic kidney disease, stage 3 (moderate ); N18.3 - Chronic kidney disease, stage 3 (moderate) (2) Status post total knee replacement, left Current Visit: Yes Status: Acute Assessment and plan: s/p total knee replacement 01/03/18 (3) Arthritis of knee, left Current Visit: Yes Status: Chronic Assessment and plan: s/p Left total knee replacement (4) Atrial fibrillation Current Visit: Yes Status: Chronic Qualifiers: Atrial fibrillation type: chronic Qualified Code(s): I48.2 - Chronic atrial fibrillation (5) CAD (coronary artery disease) Current Visit: Yes Status: Chronic Assessment and plan: Stable - On home meds coreg, simvastatin - continue to hold Lasix and lisinopril d/t worsening renal function Qualifiers: Coronary Disease-Associated Artery/Lesion type: [place] artery [place] vs. transplanted heart: [place] heart Associated angina: without angina Qualified Code(s): I25.10 - Atherosclerotic heart disease of [place] coronary artery without angina pectoris (6) HTN (hypertension) Current Visit: Yes Status: Chronic Assessment and plan: Stable, known h/o HTN BP 131/69 this morning - Continue current BP management Qualifiers: Hypertension type: essential hypertension Qualified Code(s): I10 - Essential (primary) hypertension (7) DMII (diabetes mellitus, type 2) Current Visit: Yes Status: Chronic Assessment and plan: DM II currently controlled - 30 units levemir - sliding scale insulin, medium dose - ACHS glucose checks - diabetic diet Qualifiers: Diabetes mellitus longterm insulin use: with buttermaker use Diabetes mellitus complication status: with hyperglycemia Qualified Code(s): E11.65 - Type 2 diabetes mellitus with hyperglycemia; Z79.4 - ferry terminal agent (current) use of insulin; Z79.4 - ferry terminal agent (current) use of insulin; Z79.4 - detention (current ) use of insulin; Z79.4 - ferry terminal agent (current) use of insulin (8) Asthma Current Visit: Yes Status: Chronic Assessment and plan: Stable Continue current inhaler Qualifiers: Asthma severity: mild Asthma persistence: intermittent Asthma complication type: uncomplicated Qualified Code(s): J45.20 - Mild intermittent asthma, uncomplicated (9) Anemia Current Visit: Yes Status: Acute Assessment and plan: Chronic anemia d/t CKD Stage II Acute on chronic d/t recent left total knee replacement Iron studies show iron deficiency anemia Receiving supplemental iron, vit B12, and ergocalciferol Hgb 9.1 today - Follow Hgb on AM labs - Continue supplements Qualifiers: Anemia type: iron deficiency Iron deficiency anemia type: other iron deficiency Qualified Code(s): D50.8 - Other iron deficiency anemias (10) Daytime somnolence Current Visit: Yes Status: Acute Assessment and plan: Improved - CPAP at night and during rest (11) IVONE (obstructive sleep apnea) Current Visit: Yes Status: Acute Assessment and plan: CPAP at night and during rest (12) Altered mental status Current Visit: Yes Status: Acute Assessment and plan: Improved Mental status has improved, AAO x 3, answers questions appropriately Etiology unclear, but high suspicion it was related to uremia. Pt hasn't been on CPAP at night, notified RN--may further improve his mental status -Consistent use of CPAP at night and during rest -Continue NS IVF hydration Qualifiers: Altered mental status type: unspecified Qualified Code(s): R41.82 - Altered mental status, unspecified (13) Hypocalcemia Current Visit: Yes Status: Acute Assessment and plan: Ionized calcium 1.1, may be related to hypophosphatemia; h/o CKD Serum Ca 8.2 today - 1,000 mg calcium gluconate IVPB - Recheck Ca on AM labs - Will replenish as necessary (14) DVT prophylaxis Current Visit: Yes Status: Acute Assessment and plan: Hemoglobin stable and no signs of active bleeding - Continue SCDs and ambulation orders per ortho - Subcutaneous heparin - Time Spent With Patient Total time spent is greater than 50% in coordination of care (as documented) at patient's floor/unit and/or counseling patient: - Subjective Interval history: Pt seen and examined this morning at bedside, his daughter is present. Patient is feeling well today and denies chest pain, shortness of breath, left knee pain. Complaint today that his "... butt hurts from sitting in bed." - Constitutional Vitals: Temp Pulse Resp BP Pulse Ox 98.3 F 106 16 107/66 92 01/12/18 15:59 01/12/18 15:59 01/12/18 15:59 01/12/18 15:59 01/12/18 15:59 Exam: General: vitals noted, No acute distress, resting comfortably in bed HEENT: head normocephalic/atraumatic, EOMI, PERRL, sclera anicteric, moist mucus membranes, Neck: Supple Cardio: distant, RRR, no murmurs, +S1/S2 Pulm: CTAB, no wheezing, rhonchi, rales. Normal respiratory effort. Abdomen: soft, nontender, BS Extremities: LLE edema improved, nontender to palpation, no cyanosis, knee immobilizer Back: normal appearance on inspection Neuro: AAO x 3, no focal deficit, no speech deficit, CN II-XII grossly intact, moves extremities spontaneously Skin: surgical site clean, dry, intact, erythematous area surrounding surgical site, no crepitus palpated Psych: Answers questions appropriately. Cooperative with exam Internal Medicine: Result - Labs CBC & Chem 7: 01/12/18 05:21 01/12/18 05:21 Labs: Short CBC 01/12/18 Range/Units 05:21 WBC 6.6 (4.3-11.1) K/mcL Hgb 9.1 L (12.9-16.9) g/dL Hct 27.3 L (37.5-50.1) % Plt Count 194 (140-400) K/mcL BMP 01/12/18 05:21 Sodium 134 L Potassium 4.8 Chloride 105 Carbon Dioxide 22 L BUN 81 H Creatinine 2.70 H Glucose 179 H Calcium 8.2 L - ABG Interpretation ABG results: ABG ABG pH 7.32 pH Units (7.32-7.45) 01/10/18 17:01 ABG pCO2 44 mmHg (35-45) 01/10/18 17:01 ABG pO2 81 mmHg (85-104) L 01/10/18 17:01 ABG O2 Saturation 95 % (95-98) 01/10/18 17:01 - VTE Documentation of Mechanical Device: Venous foot pump, device
[2018-01-12] MEDS ORDERED: 0.9 % Sodium Chloride 1,000 ML IVC ONE (18:28)
[2018-01-12] MEDS: Insulin DETEMIR 100 UNIT/ML X5UNITS SQ SCH (20:19)
[2018-01-13 05:29] LABS: Hematocrit 26.6 % (37.5-50.1); Hemoglobin 8.6 g/dL (12.9-16.9); Mean Corpuscular HGB Conc 32.3 g/dL (31.6-35.5); Mean Corpuscular Hemoglobin 30.5 pg (28.0-33.3); Mean Corpuscular Volume 94.3 fL (83.0-100.0); Mean Platelet Volume 11.2 fL (9.4-12.4); Platelet Count 211 K/mcL (140-400); Red Blood Count 2.82 M/mcL (4.19-5.50); Red Cell Distribution Width 13.9 % (11.5-14.5)
[2018-01-13 05:51] LABS: Calcium 8.5 mg/dL (8.6-10.3)
[2018-01-13] MEDS ORDERED: *HR* Heparin 5,000 UNIT/ML VIAL SQ SCH (06:00)
[2018-01-13] MEDS: Insulin LISPRO 300 UNITS/3 ML VIAL SQ SCH ×4 (08:14→22:57)
[2018-01-13] MEDS: Thiamine (B-1) 100 MG TABLET PO SCH (08:15)
[2018-01-13] MEDS: *HR* OxyCODONE Immed Rel 5 MG TABLET PO PRN (08:15)
[2018-01-13] MEDS: Doxycycline 100 MG CAPSULE PO SCH (08:15)
[2018-01-13] MEDS: Cyanocobalamin (B-12) 1,000 MCG TABLET PO SCH (08:15)
[2018-01-13] MEDS: 0.9 % Sodium Chloride 1,000 ML IVC SCH ×2 (08:15→10:50)
--- NOTE | 2018-01-13 09:49 | Nephrology Progress Note ---
Date of Encounter: 01/13/18 Time of Encounter: 09:46 - Assessment and Plan (1) Acute kidney injury Current Visit: Yes Status: Acute LESLIE from surgery, hypotension and CKD. Scr and GFR both improving. Scr 2.09 and GFR 31. Good urine output. He can be discharged to ECF from renal stand point. Will need BMP 1 week after discharge. Follow up with Dr. Conrad in 2-4 weeks in the office. Encourage adequate PO hydration when d/criss to ECF. (2) Status post total knee replacement, left Current Visit: Yes Status: Acute Per Ortho team. (3) Atrial fibrillation Current Visit: Yes Status: Chronic Per primary team, rate controlled at this time. Qualifiers: Atrial fibrillation type: chronic Qualified Code(s): I48.2 - Chronic atrial fibrillation (4) Altered mental status Current Visit: Yes Status: Acute A/O x 3 per exam. Continue to reorient and bed alarm on for safety. Qualifiers: Altered mental status type: unspecified Qualified Code(s): R41.82 - Altered mental status, unspecified (5) Anemia Current Visit: Yes Status: Acute Stable. 8.6 Qualifiers: Anemia type: iron deficiency Iron deficiency anemia type: other iron deficiency Qualified Code(s): D50.8 - Other iron deficiency anemias Subjective Principal diagnosis: LESLIE on CKD. Interval history: Pt seen and examined. In no distress, resting comfortably. Patient wants to know when he can go to rehab. Objective - Vital Signs Vital signs: Vital Signs Temp Pulse Resp BP Pulse Ox 01/13/18 07:57 97.7 F 104 19 172/81 97 01/13/18 05:18 97.9 F 92 20 114/73 96 01/12/18 23:58 97.9 F 94 20 126/75 97 01/12/18 20:29 98.1 F 106 20 139/66 97 01/12/18 17:52 16 97 01/12/18 15:59 98.3 F 106 16 107/66 92 01/12/18 12:41 108 113/57 01/12/18 10:54 97.8 F 102 16 81/40 94 Intake and Output 01/12/18 01/13/18 01/13/18 23:59 07:59 15:59 Intake Total 1000 / 1000 920 / 920 0 / 0 Output Total 750 / 750 1350 / 1350 250 / 250 Balance 250 / 250 -430 / -430 -250 / -250 Intake: IV Fluids 1000 / 1000 0.9 % Sodium Chloride 1,000 ML 1000 / 1000 @ 75 mls/hr IVC .[id number] RAFAEL Rx #:[id number] Oral 0 / 0 920 / 920 0 / 0 Output: Urine 350 / 350 0 / 0 Catheter 400 / 400 1350 / 1350 250 / 250 Other: Meal Breakfast Percent of Meal Consumed 85% Stool Size Large Smear Stool Consistency loose # Bowel Movements 1 Weight 156.5 kg Blood Glucose* 146 140 Patient Weight 01/13/18 23:59 Weight 156.5 kg - General Appearance General appearance: Present: obese, chronically ill EENT: Present: ATNC, hearing intact, vision intact Neck: Present: supple Respiratory: Present: wheezing (RUL. ) Cardiology: Present: no murmurs, edema (+2 noted LLE. ), irregular rhythm, normal S1, normal S2 Gastrointestinal: Present: normoactive bowel sounds, no tenderness, no guarding Integumentary: Present: no rash, warm and dry Neurologic: Present: alert and oriented x3 Psychiatric: Present: mood/affect appropriate, cooperative - Lab 01/13/18 04:22 01/13/18 04:22 Most recent lab results ABG pH 7.32 pH Units (7.32-7.45) 01/10/18 17:01 ABG pCO2 44 mmHg (35-45) 01/10/18 17:01 ABG pO2 81 mmHg (85-104) L 01/10/18 17:01 ABG HCO3 23 mEq/L (21-27) 01/10/18 17:01 ABG O2 Saturation 95 % (95-98) 01/10/18 17:01 Calcium 8.5 mg/dL (8.6-10.3) L 01/13/18 04:22 Phosphorus 5.9 mg/dL (2.7-4.5) H 01/11/18 04:40 Magnesium 2.4 mg/dL (1.6-2.6) 01/11/18 04:40 Urine Creatinine 111 mg/dL 01/06/18 12:55 Urine Sodium 40.6 mEq/L 01/10/18 23:03 - VTE Documentation of Mechanical Device: Venous foot pump, device Consult Discharge Plan - Plan Referrals: Ange Rogel, [facility]ATH[facility] SORTER [Primary Care Provider] - (Patient will follow up with PCP once discharged from rehab)
--- NOTE | 2018-01-13 11:37 | Internal Med Progress Note ---
<Abimbola Bucio - Last Filed: 01/13/18 14:15> Date of Encounter: 01/13/18 Time of Encounter: 13:15 - Assessment and plan (1) Acute on chronic renal failure Current Visit: Yes Status: Suspected Assessment and plan: Improving Baseline stage III CKD, likely d/t diabetic nephropathy Etiology likely a combination of hypoperfusion and exposure to multiple nephrotoxins in the setting of pre-existing CKD Siegel catheter for strict I/O's--UOP improved From nephrology standpoint he's ok for d/c with outpatient follow up in 2-4 weeks - Monitor electrolytes and replace PRN - continue NS @ 75mL/hr Qualifiers: Acute renal failure type: with acute tubular necrosis Chronic kidney disease stage: stage 3 (moderate) Qualified Code(s): N17.0 - Acute kidney failure with tubular necrosis; N18.3 - Chronic kidney disease, stage 3 (moderate ); N18.3 - Chronic kidney disease, stage 3 (moderate) (2) Altered mental status Current Visit: Yes Status: Acute Assessment and plan: Improved Per nursing, patient seems to get most agitated and confused at night, but had an episode of this during ortho PA's exam this noon (refer to ortho note) Etiology remains unclear: Kidney function has improved, BUN still elevated but is decreasing, normal ammonia level, no hypoglycemia, no acute findings on head CT, oxygenating well, afebrile Possibly still related to kidneys Possibly some degree of underlying dementia or delirium - Continue IVF - Continue monitoring - Qualifiers: Altered mental status type: unspecified Qualified Code(s): R41.82 - Altered mental status, unspecified (3) Status post total knee replacement, left Current Visit: Yes Status: Acute Assessment and plan: s/p total knee replacement 01/03/18 Surgical site appears clean, dry, intact on exam Cellulitis LLE (possibly surgical site infection??) vs fungal infection--white count today is 5.8, white count has been WNL since 01/07 On Bactrim 3 days, switched to doxycycline for 3 days--both Bactrim and doxycycline have been stopped - Start vancomycin with pharmacy to dose - Start topical ketoconazole cream (4) Atrial fibrillation Current Visit: Yes Status: Chronic Assessment and plan: Rate controlled Afib, stable - Continue current management with Eliquis and Coreg Qualifiers: Atrial fibrillation type: chronic Qualified Code(s): I48.2 - Chronic atrial fibrillation (5) CAD (coronary artery disease) Current Visit: Yes Status: Chronic Assessment and plan: Stable - On home meds coreg, simvastatin - restart lasix and lisinopril Qualifiers: Coronary Disease-Associated Artery/Lesion type: [place] artery [place] vs. transplanted heart: [place] heart Associated angina: without angina Qualified Code(s): I25.10 - Atherosclerotic heart disease of [place] coronary artery without angina pectoris (6) HTN (hypertension) Current Visit: Yes Status: Chronic Assessment and plan: Controlled Known h/o HTN - Continue current BP management Qualifiers: Hypertension type: essential hypertension Qualified Code(s): I10 - Essential (primary) hypertension (7) DMII (diabetes mellitus, type 2) Current Visit: Yes Status: Chronic Assessment and plan: DM II currently controlled - 30 units levemir - sliding scale insulin, medium dose - ACHS glucose checks - diabetic diet Qualifiers: Diabetes mellitus residential insulin use: with computer terminal operator use Diabetes mellitus complication status: with hyperglycemia Qualified Code(s): E11.65 - Type 2 diabetes mellitus with hyperglycemia; Z79.4 - group home (current) use of insulin; Z79.4 - group home (current) use of insulin; Z79.4 - computer terminal operator (current ) use of insulin; Z79.4 - computer terminal operator (current) use of insulin (8) Anemia Current Visit: Yes Status: Acute Assessment and plan: Multiple factors contributing Acute on chronic anemia 2/2 recent TKR and hx of CKD Iron deficiency anemia Receiving supplemental iron, vit B12, and ergocalciferol Hgb 8.6 today--may be dilutional, patient had 1 L bolus NS in addition to the IVF already running No signs of active bleeding on exam - Follow Hgb on AM labs - Stool guaiac ordered - Continue supplements Qualifiers: Anemia type: iron deficiency Iron deficiency anemia type: other iron deficiency Qualified Code(s): D50.8 - Other iron deficiency anemias (9) Daytime somnolence Current Visit: Yes Status: Acute Assessment and plan: Resolved - CPAP at night (10) IVONE (obstructive sleep apnea) Current Visit: Yes Status: Acute Assessment and plan: Patient has not been on CPAP during this admission, reports he wears it at home. At some point, per RT, patient had refused to wear NIPPV one night--I do not think it has been offered since and may explain some of his agitation and AMS. RT stated that they would offer NIPPV to patient again tonight. I spoke with patient about this and explained why he needed NIPPV versus nasal cannula at night--when asked if he would try wearing CPAP tonight he stated that he would. (11) Hypocalcemia Current Visit: Yes Status: Acute Assessment and plan: May be related to h/o CKD Serum Ca 8.5 today - Recheck Ca on AM labs - Will replenish as necessary (12) Asthma Current Visit: Yes Status: Chronic Assessment and plan: Stable, no wheezing on exam - Continue current inhaler Qualifiers: Asthma severity: mild Asthma persistence: intermittent Asthma complication type: uncomplicated Qualified Code(s): J45.20 - Mild intermittent asthma, uncomplicated (13) Arthritis of knee, left Current Visit: Yes Status: Chronic Assessment and plan: s/p Left total knee replacement (14) DVT prophylaxis Current Visit: Yes Status: Acute Assessment and plan: - Ambulation orders per ortho - Stopped heparin - Started on home dose Eliquis - Time Spent With Patient Total time spent is greater than 50% in coordination of care (as documented) at patient's floor/unit and/or counseling patient: - Subjective Interval history: Pt seen and examined this afternoon at bedside, daughter is present. Patient reports he is feeling fine today. Last night patient was reported to be quite agitated, ripping his IV out, and stating that the IV bandage had told him to remove his IV. Patient's mental status/agitation seems to be worse at night. However, patient had an episode of agitation and confusion around noon today about being unable to breathe or get enough air, further details in orthopedic progress note. When I examined him he was pleasant, oriented x3, and not at all agitated. Patient continues to make statements that he's ready to be discharged and go home. Per nursing, pt's left leg and groin are very pruritic and is scratching these areas frequently and vigorously. - Constitutional Vitals: Temp Pulse Resp BP Pulse Ox 97.7 F 104 19 172/81 97 01/13/18 07:57 01/13/18 07:57 01/13/18 07:57 01/13/18 07:57 01/13/18 07:57 Exam: General: vitals noted, No acute distress, resting comfortably in bed HEENT: head normocephalic/atraumatic, EOMI, PERRL, sclera anicteric Neck: Supple, FROM Cardio: RRR, no murmurs, +S1/S2 Pulm: CTAB, no wheezing or rales. Normal respiratory effort. Abdomen: soft, nontender, BS+ Extremities: LLE edematous, nontender to palpation, no cyanosis, bilat LE neurovascularly intact Back: normal appearance on inspection Neuro: AAO x 3, no focal deficit, no speech deficit, CN II-XII grossly intact, moves extremities spontaneously Skin: surgical site clean, dry, intact, area of erythema around surgical site improved but now LLE has scattered patchy and blanching erythema of lower leg, no crepitus palpated Psych: Answers questions appropriately. Cooperative with exam Internal Medicine: Result - Labs CBC & Chem 7: 01/13/18 04:22 01/13/18 04:22 Labs: Short CBC 01/13/18 Range/Units 04:22 WBC 5.8 (4.3-11.1) K/mcL Hgb 8.6 L (12.9-16.9) g/dL Hct 26.6 L (37.5-50.1) % Plt Count 211 (140-400) K/mcL BMP 01/13/18 04:22 Sodium 135 L Potassium 5.0 Chloride 108 H Carbon Dioxide 22 L BUN 75 H Creatinine 2.09 H Glucose 163 H Calcium 8.5 L - ABG Interpretation ABG results: ABG ABG pH 7.32 pH Units (7.32-7.45) 01/10/18 17:01 ABG pCO2 44 mmHg (35-45) 01/10/18 17:01 ABG pO2 81 mmHg (85-104) L 01/10/18 17:01 ABG O2 Saturation 95 % (95-98) 01/10/18 17:01 - VTE Documentation of Mechanical Device: Venous foot pump, device Consult Discharge Plan - Plan Referrals: Ange Rogel, BULLARD MACHINE OPERATOR [Primary Care Provider] - (Patient will follow up with PCP once discharged from rehab) <Rickie Rivas - Last Filed: 01/13/18 18:32> Date of Encounter: 01/13/18 - Assessment and plan (1) Acute on chronic renal failure Current Visit: Yes Status: Suspected Qualifiers: Acute renal failure type: with acute tubular necrosis Chronic kidney disease stage: stage 3 (moderate) Qualified Code(s): N17.0 - Acute kidney failure with tubular necrosis; N18.3 - Chronic kidney disease, stage 3 (moderate ); N18.3 - Chronic kidney disease, stage 3 (moderate) (2) Acute metabolic encephalopathy Current Visit: Yes Status: Acute (3) Arthritis of knee, left Current Visit: Yes Status: Chronic (4) Status post total knee replacement, left Current Visit: Yes Status: Acute (5) Atrial fibrillation Current Visit: Yes Status: Chronic Qualifiers: Atrial fibrillation type: chronic Qualified Code(s): I48.2 - Chronic atrial fibrillation (6) CAD (coronary artery disease) Current Visit: Yes Status: Chronic Qualifiers: Coronary Disease-Associated Artery/Lesion type: [place] artery [place] vs. transplanted heart: [place] heart Associated angina: without angina Qualified Code(s): I25.10 - Atherosclerotic heart disease of [place] coronary artery without angina pectoris (7) HTN (hypertension) Current Visit: Yes Status: Chronic Qualifiers: Hypertension type: essential hypertension Qualified Code(s): I10 - Essential (primary) hypertension (8) DMII (diabetes mellitus, type 2) Current Visit: Yes Status: Chronic Qualifiers: Diabetes mellitus residential insulin use: with residential use Diabetes mellitus complication status: with hyperglycemia Qualified Code(s): E11.65 - Type 2 diabetes mellitus with hyperglycemia; Z79.4 - computer terminal operator (current) use of insulin; Z79.4 - group home (current) use of insulin; Z79.4 - group home (current ) use of insulin; Z79.4 - group home (current) use of insulin (9) Asthma Current Visit: Yes Status: Chronic Qualifiers: Asthma severity: mild Asthma persistence: intermittent Asthma complication type: uncomplicated Qualified Code(s): J45.20 - Mild intermittent asthma, uncomplicated (10) Hypocalcemia Current Visit: Yes Status: Acute (11) Anemia Current Visit: Yes Status: Acute Qualifiers: Anemia type: iron deficiency Iron deficiency anemia type: other iron deficiency Qualified Code(s): D50.8 - Other iron deficiency anemias (12) Daytime somnolence Current Visit: Yes Status: Acute (13) IVONE (obstructive sleep apnea) Current Visit: Yes Status: Acute (14) DVT prophylaxis Current Visit: Yes Status: Acute - Time Spent With Patient Total time spent is greater than 50% in coordination of care (as documented) at patient's floor/unit and/or counseling patient: - Constitutional Vitals: Temp Pulse Resp BP Pulse Ox 98.1 F 101 20 142/70 97 01/13/18 15:46 01/13/18 15:46 01/13/18 15:46 01/13/18 15:46 01/13/18 15:46 Internal Medicine: Result - Labs CBC & Chem 7: 01/13/18 04:22 01/13/18 04:22 Labs: Short CBC 01/13/18 Range/Units 04:22 WBC 5.8 (4.3-11.1) K/mcL Hgb 8.6 L (12.9-16.9) g/dL Hct 26.6 L (37.5-50.1) % Plt Count 211 (140-400) K/mcL BMP 01/13/18 04:22 Sodium 135 L Potassium 5.0 Chloride 108 H Carbon Dioxide 22 L BUN 75 H Creatinine 2.09 H Glucose 163 H Calcium 8.5 L - ABG Interpretation ABG results: ABG ABG pH 7.30 pH Units (7.32-7.45) L 01/13/18 15:22 ABG pCO2 48 mmHg (35-45) H 01/13/18 15:22 ABG pO2 105 mmHg (85-104) H 01/13/18 15:22 ABG O2 Saturation 97 % (95-98) 01/13/18 15:22 - Impressions Impressions Knee X-Ray 01/13/18 01:00 IMPRESSION: Stable postsurgical changes from left knee arthroplasty. Persistent soft tissue swelling and joint effusion. D/ / 01/13/2018 15:15:47 [facility]per[facility] Conner [facility] Interpreting Provider: Esperanza Conner MD - Attending Attestation I examined this patient and my medical decision-making was reviewed with the Resident Physician on 01/13/18. I agree with the documented findings, disposition and treatment plan as described except to the extent set forth below. Mr Spears is currently admitted for acute renal failure and encephalopathy. He remains moderate to high risk due to potential for worsening clinical status. Mr Regan had issues with confusion last night and this afternoon. There is concern for infection in his leg. No fever. No GI issues. Some dyspnea earlier today. Exam Alert Comfortable at this time. Mucus membranes dry Heart distant Lungs with faint rhonchi Abd soft I/P 1. ARF continues to slowly improve 2. encephalopathy - restart low dose seroquel at night 3. Possible leg infection - abx changed Further diagnoses and plan as above.
--- NOTE | 2018-01-13 12:43 | Orthopedics Progress Note ---
Date of Encounter: 01/13/18 Time of Encounter: 12:00 - Assessment and Plan (1) Status post total knee replacement, left Current Visit: Yes Status: Acute (2) Arthritis of knee, left Current Visit: Yes Status: Chronic (3) Altered mental status Current Visit: Yes Status: Acute Qualifiers: Altered mental status type: unspecified Qualified Code(s): R41.82 - Altered mental status, unspecified Subjective Principal diagnosis: s/p L TKR Interval history: POD#10 01/03/18 Left robotic-assisted Total knee replacement [place] Patient seen at bedside. Labwork and medications reviewed. Patient with improved SCr today. Nephro on board. No asterixis noted today. Patient confused about timing stating no one was in to help him and that he "can't get any air". His nurse entered the room and adjusted patient's oxygen and stated that he has been complaining of "not having any air" throughout the morning despite O2sat WNL. Dressing intact with old drainage noted. Increased 2+ pitting edema noted to foot/ankle to mid pereira on operative leg. Right leg less edema about 1+ pitting. Scattered patchy blanching erythema noted to distal left leg and calf with induration primarily on anterior pereira. In the groin noted to be ecchymosis and erythema scattered along the left side as well as to lateral lef thigh with induration. Patient neurovascularly intact to b/l lower legs. This provider stepped away from patient's room to get dressing and returned appx 5 minutes later. Patient was found to be pulling himself to left side and was yelling out that "Everybody keeps walking by and won't help me and I asked for a drink 15 minutes ago and no one brings me anything". In the time this provider was away, patient's lunch was delivered and fresh ice water noted to be in patient's cup. When asked what patient was doing he states, "I need to get some air!". Patient began to get increasingly agitated and was thrashing in bed pulling at bed guard. This provider called for help and several nurses entered room to aid in positioning patient. He removed nasal cannula multiple times stating "I need some air" "Get me my inhaler" with increasing frustration eventually saying he was going to "get up and walk out if you don't get my inhaler". Patient remained alert and oriented x person, place during incident. He was assisted into a sitting position and respiratory team was called. He then began to calm and this provider was able to change dressing to left knee. Incision intact, kunal and zipline intact, and healing appropriately. Mild erythema along incision noted. No drainage noted. Pain control: Adequate Participating in PT. Knee in immobilizer -D/C to night time use only until POD# 14 Patient's relative, Lo arrived during above incident. This provider relayed patient's progress from orthopedic perspective to family member. Educated on use of incentive spirometer, therapy participation, and hydration. Addressed: see above. D/C plan: ECF - [facility], discharge held secondary to increased confusion Communicated with Dr. Rivas regarding patient's behavior and concerns for increasing erythema and confusion. Discussed broadening abx coverage. Will continue to follow. Objective Vital signs: Vital Signs Temp Pulse Resp BP Pulse Ox 01/13/18 11:33 97.7 F 103 20 127/65 97 01/13/18 07:57 97.7 F 104 19 172/81 97 01/13/18 05:18 97.9 F 92 20 114/73 96 01/12/18 23:58 97.9 F 94 20 126/75 97 01/12/18 20:29 98.1 F 106 20 139/66 97 01/12/18 17:52 16 97 01/12/18 15:59 98.3 F 106 16 107/66 92 Intake and Output 01/12/18 01/13/18 01/13/18 23:59 07:59 15:59 Intake Total 1000 / 1000 920 / 920 1000 / 1000 Output Total 750 / 750 1350 / 1350 600 / 600 Balance 250 / 250 -430 / -430 400 / 400 Intake: IV Fluids 1000 / 1000 1000 / 1000 0.9 % Sodium Chloride 1,000 ML 1000 / 1000 1000 / 1000 @ 75 mls/hr IVC .[id number] [facility] Rx #:[id number] Oral 0 / 0 920 / 920 0 / 0 Output: Urine 350 / 350 350 / 350 Catheter 400 / 400 1350 / 1350 250 / 250 Other: Meal Breakfast Percent of Meal Consumed 85% Stool Size Large Smear Stool Consistency loose # Bowel Movements 1 0 Weight 156.5 kg Blood Glucose* 146 140 Patient Weight 01/13/18 23:59 Weight 156.5 kg - Labs CBC & BMP: 01/13/18 04:22 01/13/18 04:22 Labs: Abnormal lab results RBC 2.82 M/mcL (4.19-5.50) L 01/13/18 04:22 Hgb 8.6 g/dL (12.9-16.9) L 01/13/18 04:22 Hct 26.6 % (37.5-50.1) L 01/13/18 04:22 ABG pO2 81 mmHg (85-104) L 01/10/18 17:01 ABG Base Excess -3 mEq/L (-2 to 3) L 01/10/18 17:01 Sodium 135 mEq/L (136-145) L 01/13/18 04:22 Chloride 108 mEq/L (98-107) H 01/13/18 04:22 Carbon Dioxide 22 mEq/L (23-29) L 01/13/18 04:22 BUN 75 mg/dL (8-23) H 01/13/18 04:22 Creatinine 2.09 mg/dL (0.70-1.30) H 01/13/18 04:22 Est GFR ( Amer) 38 (> 60) L 01/13/18 04:22 Est GFR (Non-Af Amer) 31 (> 60) L 01/13/18 04:22 BUN/Creatinine Ratio 36 (6-26) H 01/13/18 04:22 Glucose 163 mg/dL (70-105) H 01/13/18 04:22 POC Glucose 140 mg/dL (70-99) H 01/13/18 08:04 Calculated Osmolality 306 (280-300) H 01/13/18 04:22 Uric Acid 8.2 mg/dL (2.3-7.6) H 01/06/18 14:33 Calcium 8.5 mg/dL (8.6-10.3) L 01/13/18 04:22 Venous Ioniz Calcium 1.10 mmol/L (1.15-1.35) L 01/11/18 07:54 Phosphorus 5.9 mg/dL (2.7-4.5) H 01/11/18 04:40 Iron 18 mcg/dL (65-175) L 01/08/18 00:53 % Saturation 7 % (20-55) L 01/08/18 00:53 Transferrin 196 mg/dL (203-362) L 01/08/18 00:53 ALT 4 Units/L (7-52) L 01/08/18 14:07 Alkaline Phosphatase 119 Units/L (34-104) H 01/08/18 14:07 Serum Total Protein 5.6 g/dL (6.4-8.9) L 01/08/18 14:07 Albumin 2.8 g/dL (3.5-5.7) L 01/08/18 14:07 Albumin/Globulin Ratio 1.0 (1.1-2.2) L 01/08/18 14:07 Vitamin B12 179 pg/mL (250-1100) L 01/08/18 00:53 25-OH Vitamin D Total 13 ng/mL (30-80) L 01/08/18 00:53 Vit D 1,25-Dihydroxy 15.7 pg/mL (19.9-79.3) L 01/06/18 08:44 PTH Intact 196.3 pg/ml (10.0-65.0) H 01/08/18 00:53 Urine Clarity Cloudy (Clear) A 01/08/18 17:35 Urine Microscopic RBC 5-15 per hpf (0-3) H 01/08/18 17:35 Ur Squamous Epith Cells Moderate per lpf (None-Few) H 01/08/18 17:35 - VTE Documentation of Mechanical Device: Venous foot pump, device Consult Discharge Plan - Plan Referrals: Ange Rogel, LATHE MECHANIC [Primary Care Provider] - (Patient will follow up with PCP once discharged from rehab)
[2018-01-13] MEDS ORDERED: Vancomycin (wt based) 1,000 MG VIAL IVPB SCH (14:00)
[2018-01-13] MEDS: Ketoconazole 2% CRM 15 GM TUBE TP SCH ×2 (14:14→22:58)
[2018-01-13 15:29] LABS: ABG Base Excess -3 mEq/L (-2 to 3); ABG HCO3 24 mEq/L (21-27); ABG Oxygen Saturation 97 % (95-98); ABG PCO2 48 mmHg (35-45); ABG PO2 105 mmHg (85-104); ABG TCO2 25 mEq/L (20-26)
[2018-01-13] MEDS ORDERED: Ketoconazole 2% CRM 15 GM TUBE TP SCH (21:00)
[2018-01-13] MEDS: Apixaban 5 MG TABLET PO SCH (22:50)
[2018-01-13] MEDS: Insulin DETEMIR 100 UNIT/ML X5UNITS SQ SCH (23:01)
[2018-01-13] MEDS: Ringers Solution, Lactated 1,000 ML IVC SCH (23:52)
[2018-01-14 06:09] LABS: Hematocrit 30.3 % (37.5-50.1); Hemoglobin 9.6 g/dL (12.9-16.9); Mean Corpuscular HGB Conc 31.7 g/dL (31.6-35.5); Mean Corpuscular Hemoglobin 29.9 pg (28.0-33.3); Mean Corpuscular Volume 94.4 fL (83.0-100.0); Mean Platelet Volume 10.7 fL (9.4-12.4); Platelet Count 255 K/mcL (140-400); Red Blood Count 3.21 M/mcL (4.19-5.50)
[2018-01-14 06:29] LABS: BUN/Creatinine Ratio 42 (6-26); Blood Urea Nitrogen 57 mg/dL (8-23); Carbon Dioxide 24 mEq/L (23-29); Chloride 110 mEq/L (98-107); Glucose 52 mg/dL (70-105); Osmolality,Calculated 301 (280-300); Potassium 4.7 mEq/L (3.5-5.1); Sodium 139 mEq/L (136-145); eGFR For African Americans > 60 (> 60); eGFR For Non-African Americans 51 (> 60)
--- NOTE | 2018-01-14 06:40 | Orthopedics Progress Note ---
Date of Encounter: 01/14/18 Time of Encounter: 06:39 - Assessment and Plan (1) Morbid obesity with BMI of 40.0-44.9, adult Current Visit: Yes Status: Chronic (2) Arthritis of knee, left Current Visit: Yes Status: Chronic (3) Status post total knee replacement, left Current Visit: Yes Status: Acute (4) Atrial fibrillation Current Visit: Yes Status: Chronic Qualifiers: Atrial fibrillation type: chronic Qualified Code(s): I48.2 - Chronic atrial fibrillation (5) CAD (coronary artery disease) Current Visit: Yes Status: Chronic Qualifiers: Coronary Disease-Associated Artery/Lesion type: [place] artery [place] vs. transplanted heart: [place] heart Associated angina: without angina Qualified Code(s): I25.10 - Atherosclerotic heart disease of [place] coronary artery without angina pectoris (6) HTN (hypertension) Current Visit: Yes Status: Chronic Qualifiers: Hypertension type: essential hypertension Qualified Code(s): I10 - Essential (primary) hypertension (7) DMII (diabetes mellitus, type 2) Current Visit: Yes Status: Chronic Qualifiers: Diabetes mellitus medical terminologist insulin use: with medical terminologist use Diabetes mellitus complication status: with hyperglycemia Qualified Code(s): E11.65 - Type 2 diabetes mellitus with hyperglycemia; Z79.4 - correction (current) use of insulin; Z79.4 - dedicated intermodal truck driver (current) use of insulin; Z79.4 - dedicated intermodal truck driver (current ) use of insulin; Z79.4 - correction (current) use of insulin (8) Asthma Current Visit: Yes Status: Chronic Qualifiers: Asthma severity: mild Asthma persistence: intermittent Asthma complication type: uncomplicated Qualified Code(s): J45.20 - Mild intermittent asthma, uncomplicated (9) Chronic pain Current Visit: No Status: Chronic Qualifiers: Chronic pain type: other chronic pain Qualified Code(s): G89.29 - Other chronic pain (10) Anxiety Current Visit: No Status: Chronic (11) Acute kidney injury Current Visit: Yes Status: Acute (12) Hypocalcemia Current Visit: Yes Status: Acute (13) Slurred speech Current Visit: Yes Status: Acute (14) IVONE (obstructive sleep apnea) Current Visit: Yes Status: Acute (15) Altered mental status Current Visit: Yes Status: Acute Qualifiers: Altered mental status type: unspecified Qualified Code(s): R41.82 - Altered mental status, unspecified Subjective Principal diagnosis: s/p L TKR Interval history: Patient seen this morning alert and oriented 3 creatinine down to 1.37. Examination of left lower extremity knee shows no erythema no significant swelling dressing clean dry and intact. Patient has erythema pretibial looks more like vascular related we will treat as cellulitis on discharge patient recommended for ECF when cleared by medicine. Objective Vital signs: Vital Signs Temp Pulse Resp BP Pulse Ox 01/14/18 04:11 98.2 F 96 18 145/88 99 01/14/18 00:07 22 99 01/13/18 23:09 97.4 F L 95 18 119/57 99 01/13/18 22:18 13 100 01/13/18 18:45 98.3 F 104 18 130/72 98 01/13/18 15:46 98.1 F 101 20 142/70 97 01/13/18 12:12 18 97 01/13/18 11:33 97.7 F 103 20 127/65 97 01/13/18 07:57 97.7 F 104 19 172/81 97 Intake and Output 01/13/18 01/13/18 01/14/18 15:59 23:59 07:59 Intake Total 1000 / 1000 500 / 500 100 / 100 Output Total 1300 / 1300 1200 / 1200 900 / 900 Balance -300 / -300 -700 / -700 -800 / -800 Intake: IV Fluids 1000 / 1000 0.9 % Sodium Chloride 1,000 ML 1000 / 1000 @ 75 mls/hr IVC .[id number] [facility] Rx #:[id number] Oral 0 / 0 500 / 500 100 / 100 Output: Urine 850 / 850 200 / 200 Catheter 450 / 450 1000 / 1000 900 / 900 Other: Stool Size Smear Large # Bowel Movements 0 1 Weight 154.5 kg Blood Glucose* 266 123 Patient Weight 01/14/18 23:59 Weight 154.5 kg - Labs CBC & BMP: 01/14/18 05:49 01/14/18 05:49 Labs: Abnormal lab results RBC 3.21 M/mcL (4.19-5.50) L 01/14/18 05:49 Hgb 9.6 g/dL (12.9-16.9) L 01/14/18 05:49 Hct 30.3 % (37.5-50.1) L 01/14/18 05:49 ABG pH 7.30 pH Units (7.32-7.45) L 01/13/18 15:22 ABG pCO2 48 mmHg (35-45) H 01/13/18 15:22 ABG pO2 105 mmHg (85-104) H 01/13/18 15:22 ABG Base Excess -3 mEq/L (-2 to 3) L 01/13/18 15:22 Chloride 110 mEq/L (98-107) H 01/14/18 05:49 BUN 57 mg/dL (8-23) H 01/14/18 05:49 Creatinine 1.37 mg/dL (0.70-1.30) H 01/14/18 05:49 Est GFR (Non-Af Amer) 51 (> 60) L 01/14/18 05:49 BUN/Creatinine Ratio 42 (6-26) H 01/14/18 05:49 Glucose 52 mg/dL (70-105) L 01/14/18 05:49 POC Glucose 181 mg/dL (70-99) H 01/13/18 15:55 Calculated Osmolality 301 (280-300) H 01/14/18 05:49 Uric Acid 8.2 mg/dL (2.3-7.6) H 01/06/18 14:33 Venous Ioniz Calcium 1.10 mmol/L (1.15-1.35) L 01/11/18 07:54 Phosphorus 5.9 mg/dL (2.7-4.5) H 01/11/18 04:40 Iron 18 mcg/dL (65-175) L 01/08/18 00:53 % Saturation 7 % (20-55) L 01/08/18 00:53 Transferrin 196 mg/dL (203-362) L 01/08/18 00:53 ALT 4 Units/L (7-52) L 01/08/18 14:07 Alkaline Phosphatase 119 Units/L (34-104) H 01/08/18 14:07 Serum Total Protein 5.6 g/dL (6.4-8.9) L 01/08/18 14:07 Albumin 2.8 g/dL (3.5-5.7) L 01/08/18 14:07 Albumin/Globulin Ratio 1.0 (1.1-2.2) L 01/08/18 14:07 Vitamin B12 179 pg/mL (250-1100) L 01/08/18 00:53 25-OH Vitamin D Total 13 ng/mL (30-80) L 01/08/18 00:53 Vit D 1,25-Dihydroxy 15.7 pg/mL (19.9-79.3) L 01/06/18 08:44 PTH Intact 196.3 pg/ml (10.0-65.0) H 01/08/18 00:53 Urine Clarity Cloudy (Clear) A 01/08/18 17:35 Urine Microscopic RBC 5-15 per hpf (0-3) H 01/08/18 17:35 Ur Squamous Epith Cells Moderate per lpf (None-Few) H 01/08/18 17:35 - VTE Documentation of Mechanical Device: Venous foot pump, device Consult Discharge Plan - Plan Referrals: Ange Rogel, EXCHANGE MECHANIC [Primary Care Provider] - (Patient will follow up with PCP once discharged from rehab)
[2018-01-14] MEDS: Insulin LISPRO 300 UNITS/3 ML VIAL SQ SCH ×4 (07:36→22:10)
[2018-01-14] MEDS: Thiamine (B-1) 100 MG TABLET PO SCH (09:24)
[2018-01-14] MEDS: Apixaban 5 MG TABLET PO SCH ×2 (09:24→22:25)
[2018-01-14] MEDS: Cyanocobalamin (B-12) 1,000 MCG TABLET PO SCH (09:24)
[2018-01-14] MEDS: Ketoconazole 2% CRM 15 GM TUBE TP SCH ×2 (09:24→22:26)
--- NOTE | 2018-01-14 11:05 | Discharge Summary ---
<Rickie Rivas - Last Filed: 01/14/18 17:49> Orders not resulted at time of discharge: Pending orders 01/03/18 11:47 US anesthesia pain block [US] Routine 01/10/18 14:59 Vitamin B1 (Thiamine) Whole Bl Routine 01/14/18 14:57 Venous Doppler [EV venous imaging LE LT] Routine 01/15/18 04:00 BMP [Basic Metabolic Panel] AM 0400 Complete Blood Count w/o Diff [HEME] AM 04001/16/18 04:00 BMP [Basic Metabolic Panel] AM 0400 Complete Blood Count w/o Diff [HEME] AM 0400 01/17/18 04:00 BMP [Basic Metabolic Panel] AM 0400 Complete Blood Count w/o Diff [HEME] AM 0400 Date of Encounter: 01/14/18 - Discharge Diagnosis (1) Acute on chronic renal failure Priority: Secondary Status: Suspected Qualifiers: Acute renal failure type: with acute tubular necrosis Chronic kidney disease stage: stage 3 (moderate) Qualified Code(s): N17.0 - Acute kidney failure with tubular necrosis; N18.3 - Chronic kidney disease, stage 3 (moderate ); N18.3 - Chronic kidney disease, stage 3 (moderate) (2) Cellulitis of left lower extremity Priority: Secondary Status: Acute (3) Acute metabolic encephalopathy Priority: Secondary Status: Resolved (4) Arthritis of knee, left Priority: Primary Status: Chronic (5) Status post total knee replacement, left Priority: Primary Status: Acute (6) Atrial fibrillation Status: Chronic Qualifiers: Atrial fibrillation type: chronic Qualified Code(s): I48.2 - Chronic atrial fibrillation (7) CAD (coronary artery disease) Priority: Secondary Status: Chronic Qualifiers: Coronary Disease-Associated Artery/Lesion type: [place] artery [place] vs. transplanted heart: [place] heart Associated angina: without angina Qualified Code(s): I25.10 - Atherosclerotic heart disease of [place] coronary artery without angina pectoris (8) HTN (hypertension) Priority: Secondary Status: Chronic Qualifiers: Hypertension type: essential hypertension Qualified Code(s): I10 - Essential (primary) hypertension (9) DMII (diabetes mellitus, type 2) Priority: Secondary Status: Chronic Qualifiers: Diabetes mellitus skilled nursing insulin use: with termite treater use Diabetes mellitus complication status: with hyperglycemia Qualified Code(s): E11.65 - Type 2 diabetes mellitus with hyperglycemia; Z79.4 - half-way (current) use of insulin; Z79.4 - half-way (current) use of insulin; Z79.4 - manager terminal (current ) use of insulin; Z79.4 - manager terminal (current) use of insulin (10) Asthma Priority: Secondary Status: Chronic Qualifiers: Asthma severity: mild Asthma persistence: intermittent Asthma complication type: uncomplicated Qualified Code(s): J45.20 - Mild intermittent asthma, uncomplicated (11) Hypocalcemia Priority: Secondary Status: Resolved (12) Anemia Priority: Secondary Status: Chronic Qualifiers: Anemia type: iron deficiency Iron deficiency anemia type: other iron deficiency Qualified Code(s): D50.8 - Other iron deficiency anemias (13) Daytime somnolence Priority: Secondary Status: Resolved (14) IVONE (obstructive sleep apnea) Priority: Secondary Status: Chronic (15) Tobacco abuse Priority: Secondary Status: Chronic (16) DVT prophylaxis Priority: Secondary Status: Acute Hospital course: Mr. Spears is a 72 year old male - Time Spent with Patient Total time spent providing and/or coordinating discharge services: 41 min - Discharge Medications Prescriptions: Linezolid [Zyvox] 600 mg PO BID 4 Days #8 tablet Miconazole 2% cream [Remedy Antifungal] 1 appl TP QDPC #1 tube Home Medications: OxyCODONE Immed Rel [Roxicodone 5 MG] 5 mg PO Q6HR PRN 7 Days #28 tablet [Rx] Albuterol Sulfate [Ventolin Hfa] 2 puff IH Q4-6H PRN 01/03/18 [History] Apixaban [Eliquis] 5 mg PO BID 01/03/18 [History] Carvedilol 12.5 mg PO BID 01/03/18 [History] Furosemide [Lasix] 40 mg PO DAILY 01/03/18 [History] HYDROcodone/Acet 5/325 mg [[place] 5-325 mg] 1 tab PO Q6H PRN 01/03/18 [History] Insulin ASPART [NovoLOG] 10 unit SQ TIDWM 01/03/18 [History] Insulin DETEMIR [Levemir] 50 unit SQ HS 01/03/18 [History] Lisinopril [Zestril] 10 mg PO DAILY 01/03/18 [History] Simvastatin [Zocor] 20 mg PO HS 01/03/18 [History] clonazePAM [Klonopin] 0.5 mg PO HS PRN 01/03/18 [History] Linezolid [Zyvox] 600 mg PO BID 4 Days #8 tablet 01/14/18 [Rx] Miconazole 2% cream [Remedy Antifungal] 1 appl TP QDPC #1 tube 01/14/18 [Rx] Allergies/Adverse Reactions: 3 Allergy/AdvReac Type Severity Reaction Status Date / Time propoxyphene Allergy Hives Verified 01/03/18 12:27 [From Darvocet-N 100] Date of admission: 01/03/18 20:54 Primary care physician: Chang Ferrari Consults: 01/03/18 15:43 Consult to Occupational Therapy [CONS] Routine Comment: Evaluate, develop and implement POC Reason for Consult: post knee surgery Does patient have active BEDREST order?: No Is patient medically & hemodynamically stable?: Yes Consult to Orthopedic Navigator [CONS] [CONS] Routine Consult to Physical Therapy [CONS] Routine Comment: Evaluate, develop and impliment POC Reason for Consult: no cpm wear brace at all times Does patient have active BEDREST order?: No Is patient medically & hemodynamically stable?: Yes Consult to Physical Biochemist [CONS] Routine Reason for SW Consult: post op joint replacement RT Post Op Consult [CONS] Routine 01/06/18 07:26 Consult to Hospitalist [CONS] Routine Consulting Provider: Hospitalist Citl[facility] Reason for Consult: elevated creatinine, decreased GFT - C. Jesus to call now Call Completed: No 01/06/18 10:28 Consult to Nephrology [CONS] Routine Consulting Provider: Kidney Radha/ANNA/CHILO/AJIT Reason for Consult: LESLIE Call Completed: Yes 01/07/18 14:10 Consult to Cardiology [CONS] Routine Comment: Consulting Provider: Cardiology [place] Reason for Consult: chest pain Call Completed: Yes 01/10/18 15:35 Consult to Neurology [CONS] Routine Consulting Provider: [facility] Reason for Consult: altered mental status Call Completed: Yes - Constitutional Vitals: Temp Pulse Resp BP Pulse Ox 98.3 F 108 16 151/94 99 01/14/18 16:32 01/14/18 16:32 01/14/18 17:38 01/14/18 16:32 01/14/18 17:38 - Patient Status Disposition: Transfer SNF Condition: Good - Discharge Instructions Follow Up With: Aneg Rogel CNP [Primary Care Provider] - (Patient will follow up with PCP once discharged from rehab) Additional Instructions: Take all medications as they are prescribed. DO NOT take zoloft (sertraline) while you are on antibiotics. When you have finished your antibiotics, restart zoloft (sertraline) Follow up with your PCP. Wear your CPAP at night. If you develop: nausea, vomiting, fever, chills, chest pain, difficulty breathing, increasing pain, redness, swelling, or drainage from your surgical site that looks like pus you should contact your PCP or return to the emergency department right away. - Attending Attestation I examined this patient and my medical decision-making was reviewed with the Resident Physician on 01/14/18. I agree with the documented findings, disposition and treatment plan as described except to the extent set forth below. Mr Spears has been admitted for L TKR. He developed renal failure post op as well as concern for cellulitis/infection. He was placed on PO abx and switched to IV when there was minimal improvement. He had significant encephalopathy which has improved. He is afebrile at this time. Exam alert Comfortable LLE with some swelling and erythema though somewhat improved No wheeze No tachycardia Plan D/C to Swing bed Check venous doppler before discharge Abx to be given - most likely PO Zyvox. <Abimbola Bucio - Last Filed: 01/14/18 21:21> Orders not resulted at time of discharge: Pending orders 01/03/18 11:47 US anesthesia pain block [US] Routine 01/10/18 14:59 Vitamin B1 (Thiamine) Whole Bl Routine 01/15/18 04:00 BMP [Basic Metabolic Panel] AM 0400 Complete Blood Count w/o Diff [HEME] AM 0400 01/16/18 04:00 BMP [Basic Metabolic Panel] AM 0400 Complete Blood Count w/o Diff [HEME] AM 0400 01/17/18 04:00 BMP [Basic Metabolic Panel] AM 0400 Complete Blood Count w/o Diff [HEME] AM 0400 Date of Encounter: 01/14/18 Time of Encounter: 14:00 - Discharge Diagnosis (1) Arthritis of knee, left Priority: Secondary Status: Chronic (2) Status post total knee replacement, left Priority: Secondary Status: Acute (3) Acute on chronic renal failure Priority: Primary Status: Acute Qualifiers: Acute renal failure type: with acute tubular necrosis Chronic kidney disease stage: stage 3 (moderate) Qualified Code(s): N17.0 - Acute kidney failure with tubular necrosis; N18.3 - Chronic kidney disease, stage 3 (moderate ); N18.3 - Chronic kidney disease, stage 3 (moderate) (4) Acute metabolic encephalopathy Priority: Secondary Status: Resolved (5) Atrial fibrillation Priority: Secondary Status: Chronic Qualifiers: Atrial fibrillation type: chronic Qualified Code(s): I48.2 - Chronic atrial fibrillation (6) CAD (coronary artery disease) Priority: Secondary Status: Chronic Qualifiers: Coronary Disease-Associated Artery/Lesion type: [place] artery [place] vs. transplanted heart: [place] heart Associated angina: without angina Qualified Code(s): I25.10 - Atherosclerotic heart disease of [place] coronary artery without angina pectoris (7) HTN (hypertension) Priority: Secondary Status: Chronic Qualifiers: Hypertension type: essential hypertension Qualified Code(s): I10 - Essential (primary) hypertension (8) DMII (diabetes mellitus, type 2) Priority: Secondary Status: Chronic Qualifiers: Diabetes mellitus termite treater insulin use: with termite treater use Diabetes mellitus complication status: with hyperglycemia Qualified Code(s): E11.65 - Type 2 diabetes mellitus with hyperglycemia; Z79.4 - half-way (current) use of insulin; Z79.4 - manager terminal (current) use of insulin; Z79.4 - half-way (current ) use of insulin; Z79.4 - manager terminal (current) use of insulin (9) Asthma Priority: Secondary Status: Chronic Qualifiers: Asthma severity: mild Asthma persistence: intermittent Asthma complication type: uncomplicated Qualified Code(s): J45.20 - Mild intermittent asthma, uncomplicated (10) Hypocalcemia Priority: Secondary Status: Resolved (11) Anemia Priority: Secondary Status: Chronic Qualifiers: Anemia type: iron deficiency Iron deficiency anemia type: other iron deficiency Qualified Code(s): D50.8 - Other iron deficiency anemias (12) Daytime somnolence Priority: Secondary Status: Resolved (13) IVONE (obstructive sleep apnea) Priority: Secondary Status: Chronic (14) DVT prophylaxis Priority: Secondary Status: Acute Hospital course: Mr. Spears is a 72 year old male with a PMHx of OA presented to hospital for left total knee replacement. He did undergo replacement and tolerated the procedure well. Medicine service was consulted on 01/06/18 for generalized weakness following his surgery. Labs at that time revealed worsening renal function and increased osmolality. Labs at that time were significant for anemia at 9.3 Hgb, Creatinine worsening from 1.82 on admission to peak of 3.54. Mildly hyponatremic. PT/OT was consulted and he was started on IV fluids for his LESLIE. Nephrology was also consulted during this time. He also became altered in his mental status during this time which was likely secondary to his uremia. His kidney function and weakness did improve in the next few days. Renal ultrasound was unremarkable and kidney workup was suggestive of pre renal etiology with superimposed bactrim use. Bactrim was stopped. Kidney function improved to near baseline levels. Echo was obtained and showed EF 55% with indeterminate diastolic dysfunction. Cardiology was consulted during admission for a complaint of chest pain which was thought to be MSK in nature. His weakness did somewhat improve. Mental status returned to baseline. He will be discharged home in stable medical condition and will follow up with ortho and PCP upon discharge. - Time Spent with Patient Total time spent providing and/or coordinating discharge services: Date of admission: 01/03/18 20:54 Primary care physician: Chang Ferrari Consults: 01/03/18 15:43 Consult to Occupational Therapy [CONS] Routine Comment: Evaluate, develop and implement POC Reason for Consult: post knee surgery Does patient have active BEDREST order?: No Is patient medically & hemodynamically stable?: Yes Consult to Orthopedic Navigator [CONS] [CONS] Routine Consult to Physical Therapy [CONS] Routine Comment: Evaluate, develop and impliment POC Reason for Consult: no cpm wear brace at all times Does patient have active BEDREST order?: No Is patient medically & hemodynamically stable?: Yes Consult to Physical Biochemist [CONS] Routine Reason for SW Consult: post op joint replacement RT Post Op Consult [CONS] Routine 01/06/18 07:26 Consult to Hospitalist [CONS] Routine Consulting Provider: Hospitalist [facility] Reason for Consult: elevated creatinine, decreased GFT - C. Jesus to call now Call Completed: No 01/06/18 10:28 Consult to Nephrology [CONS] Routine Consulting Provider: Kidney [place]/ORINANCY/CHILO/AJIT Reason for Consult: LESLIE Call Completed: Yes 01/07/18 14:10 Consult to Cardiology [CONS] Routine Comment: Consulting Provider: Cardiology Radha Reason for Consult: chest pain Call Completed: Yes 01/10/18 15:35 Consult to Neurology [CONS] Routine Consulting Provider: Neurology [facility] Reason for Consult: altered mental status Call Completed: Yes Discharging clinician: Abimbola Bucio Anticipated date of discharge: 01/14/18 - Constitutional Vitals: Temp Pulse Resp BP Pulse Ox 97.4 F L 100 15 150/82 99 01/14/18 07:18 01/14/18 07:18 01/14/18 07:18 01/14/18 07:18 01/14/18 07:18 Exam: General: vitals noted, No acute distress, resting comfortably in bed HEENT: head normocephalic/atraumatic, EOMI, PERRL, sclera anicteric Neck: Supple, FROM Cardio: tachycardia (104 bpm), no murmurs, +S1/S2 Pulm: CTAB, no wheezing or rales. Normal respiratory effort. Abdomen: soft, nontender, BS+ Extremities: LLE edema improved, nontender to palpation, no cyanosis, bilat LE neurovascularly intact Neuro: AAO x 3, no focal deficit, no speech deficit, CN II-XII grossly intact, moves extremities spontaneously Skin: surgical site clean, dry, intact, LLE erythema improved, no crepitus palpated Psych: Answers questions appropriately. Cooperative with exam - Patient Status Functional capacity at discharge: uses cane/walker Overall status at discharge: patient is progressing back to baseline - Diet and Activity Activity: ambulate only with your walker, as per physical therapy, increase activity as tolerated, resume usual activities as tolerated, wear oxygen at all times, wear oxygen at night Diet: diabetic diet - VTE Documentation of Mechanical Device: Venous foot pump, device
--- NOTE | 2018-01-14 12:39 | Event Note ---
Date of Encounter: 01/14/18 Time of Encounter: 08:50 PCR- POD#11 01/03/18 Left robotic-assisted Total knee replacement [place] PCR - Patient seen at bedside. Labwork and medications reviewed. Patient with improved SCr and urine output today. Patient resting comfortably in bed. He is easily aroused and however goes back to sleep almost immediately. Family at bedside per family daughter and grandson. CPAP machine noted to be in the room. X-rays reviewed - no acute changes, hardware intact and alignment. Pain control: Adequate Participating in PT. Knee in immobilizer -will d/c to night time use only until POD#14 All questions and concerns addressed from patient's daughter at bedside as well as patient. Educated on use of incentive spirometer, ambulation, and hydration. Patient educated on post-operative restrictions and care. Addressed: Erythema to lower left leg ongoing. Swelling improved today. Concern for cellulitis and vascular involvement. Primary team working on antibiotic coverage.. D/C plan: NITHIN Mac today per primary team. We will see patient in outpatient as scheduled.
[2018-01-14] MEDS: *HR* OxyCODONE Immed Rel 5 MG TABLET PO PRN (16:11)
--- NOTE | 2018-01-14 19:12 | Physician Discharge Referral ---
ExtendedCare Referral Info Transfer To: [facility] inpatient rehab Provider in Charge after Transfer: PCP Institutional Level of Care: Skilled - Diagnosis (1) Arthritis of knee, left Priority: Secondary Status: Chronic (2) Status post total knee replacement, left Priority: Secondary Status: Acute (3) Acute on chronic renal failure Priority: Primary Status: Acute (4) Acute metabolic encephalopathy Priority: Secondary Status: Resolved (5) Atrial fibrillation Priority: Secondary Status: Chronic (6) CAD (coronary artery disease) Priority: Secondary Status: Chronic (7) HTN (hypertension) Priority: Secondary Status: Chronic (8) DMII (diabetes mellitus, type 2) Priority: Secondary Status: Chronic (9) Asthma Priority: Secondary Status: Chronic (10) Hypocalcemia Priority: Secondary Status: Resolved (11) Anemia Priority: Secondary Status: Chronic (12) Daytime somnolence Priority: Secondary Status: Resolved (13) IVONE (obstructive sleep apnea) Priority: Secondary Status: Chronic (14) DVT prophylaxis Priority: Secondary Status: Acute - Transfer Medications Prescriptions: Linezolid [Zyvox] 600 mg PO BID 4 Days #8 tablet Miconazole 2% cream [Remedy Antifungal] 1 appl TP QDPC #1 tube Home Medications: OxyCODONE Immed Rel [Roxicodone 5 MG] 5 mg PO Q6HR PRN 7 Days #28 tablet [Rx] Albuterol Sulfate [Ventolin Hfa] 2 puff IH Q4-6H PRN 01/03/18 [History] Apixaban [Eliquis] 5 mg PO BID 01/03/18 [History] Carvedilol 12.5 mg PO BID 01/03/18 [History] Furosemide [Lasix] 40 mg PO DAILY 01/03/18 [History] HYDROcodone/Acet 5/325 mg [[place] 5-325 mg] 1 tab PO Q6H PRN 01/03/18 [History] Insulin ASPART [NovoLOG] 10 unit SQ TIDWM 01/03/18 [History] Insulin DETEMIR [Levemir] 50 unit SQ HS 01/03/18 [History] Lisinopril [Zestril] 10 mg PO DAILY 01/03/18 [History] Simvastatin [Zocor] 20 mg PO HS 01/03/18 [History] clonazePAM [Klonopin] 0.5 mg PO HS PRN 01/03/18 [History] Linezolid [Zyvox] 600 mg PO BID 4 Days #8 tablet 01/14/18 [Rx] Miconazole 2% cream [Remedy Antifungal] 1 appl TP QDPC #1 tube 01/14/18 [Rx] Allergies/Adverse Reactions: 3 Allergy/AdvReac Type Severity Reaction Status Date / Time propoxyphene Allergy Hives Verified 01/03/18 12:27 [From Darvocet-N 100] - Respiratory Orders Oxygen / L per min Smoking Cessation: Smoking cessation has been advised. For more information, call the [place] Tobacco Quit Line at 6-077-JSEP-NOW. - Ancillary Orders May use pressure relief devices daily prn, May consult with Dentist, Bridge Repairer, Support Assistant PRN - Mobility Orders Chair, Ambulate - Rehabiliation Orders Rehab Potential: Fair Rehab Orders: ROM Exercises, Evaluation for Physical Therapy, Evaluation for Occupational Therapy - Treatments Skin tear care topically daily PRN per policy - Diet Orders Renal, Cardiac CERTIFICATION: I certify that the transfer of the above named patient to an Extended Care Facility is necessary for the continuing treatment of the diagnosis listed. The above information is true and accurate reflection of patient's current condition. Confidential - Redisclosure prohibited without a patient's written consent.
[2018-01-14] MEDS: Insulin DETEMIR 100 UNIT/ML X5UNITS SQ SCH (22:32)
[2018-01-15 04:51] LABS: Hematocrit 28.3 % (37.5-50.1); Hemoglobin 9.1 g/dL (12.9-16.9); Immature Platelets 3.3 % (1.1-6.1); Mean Corpuscular HGB Conc 32.2 g/dL (31.6-35.5); Mean Corpuscular Hemoglobin 30.7 pg (28.0-33.3); Mean Corpuscular Volume 95.6 fL (83.0-100.0); Mean Platelet Volume 10.6 fL (9.4-12.4); Red Blood Count 2.96 M/mcL (4.19-5.50)
[2018-01-15 05:12] LABS: BUN/Creatinine Ratio 42 (6-26); Blood Urea Nitrogen 44 mg/dL (8-23); Calcium 8.8 mg/dL (8.6-10.3); Carbon Dioxide 24 mEq/L (23-29); Chloride 112 mEq/L (98-107); Glucose 136 mg/dL (70-105); Osmolality,Calculated 301 (280-300); Sodium 139 mEq/L (136-145); eGFR For African Americans > 60 (> 60); eGFR For Non-African Americans > 60 (> 60)
[2018-01-15] MEDS: Insulin LISPRO 300 UNITS/3 ML VIAL SQ SCH ×4 (07:11→21:38)
[2018-01-15] MEDS: Ketoconazole 2% CRM 15 GM TUBE TP SCH ×2 (07:31→21:51)
[2018-01-15] MEDS: Cyanocobalamin (B-12) 1,000 MCG TABLET PO SCH (07:31)
[2018-01-15] MEDS: Thiamine (B-1) 100 MG TABLET PO SCH (07:31)
[2018-01-15] MEDS: Apixaban 5 MG TABLET PO SCH ×2 (07:31→21:50)
[2018-01-15] MEDS ORDERED: Furosemide 20 MG/2 ML VIAL IVP ONE ×2 (08:23→18:00)
--- NOTE | 2018-01-15 08:23 | Internal Med Progress Note ---
Date of Encounter: 01/15/18 Time of Encounter: 08:22 - Assessment and plan (1) Cellulitis of left lower extremity Current Visit: Yes Status: Acute Assessment and plan: Currently on IV Vancomycin with slow improvement. There has not been dramatic improvement though so will add Zosyn today. Anticipate d/c IV abx in next 24 hours and starting PO Zyvox for week treatment total. Venous duplex negative for DVT. (2) Arthritis of knee, left Current Visit: Yes Status: Chronic Assessment and plan: s/p Left total knee replacement (3) Status post total knee replacement, left Current Visit: Yes Status: Acute Assessment and plan: Per ortho. (4) Atrial fibrillation Current Visit: Yes Status: Chronic Assessment and plan: Rate controlled Afib, stable - Continue current management with Eliquis and Coreg Qualifiers: Atrial fibrillation type: chronic Qualified Code(s): I48.2 - Chronic atrial fibrillation (5) CAD (coronary artery disease) Current Visit: Yes Status: Chronic Assessment and plan: Stable - On home meds coreg, simvastatin Qualifiers: Coronary Disease-Associated Artery/Lesion type: [place] artery [place] vs. transplanted heart: [place] heart Associated angina: without angina Qualified Code(s): I25.10 - Atherosclerotic heart disease of [place] coronary artery without angina pectoris (6) HTN (hypertension) Current Visit: Yes Status: Chronic Assessment and plan: Controlled Known h/o HTN - Continue current BP management Qualifiers: Hypertension type: essential hypertension Qualified Code(s): I10 - Essential (primary) hypertension (7) DMII (diabetes mellitus, type 2) Current Visit: Yes Status: Chronic Assessment and plan: DM II currently controlled - 30 units levemir - sliding scale insulin, medium dose - ACHS glucose checks - diabetic diet Qualifiers: Diabetes mellitus senior living insulin use: with senior living use Diabetes mellitus complication status: with hyperglycemia Qualified Code(s): E11.65 - Type 2 diabetes mellitus with hyperglycemia; Z79.4 - long term (current) use of insulin; Z79.4 - assisted (current) use of insulin; Z79.4 - long term (current ) use of insulin; Z79.4 - long term (current) use of insulin (8) Asthma Current Visit: Yes Status: Chronic Assessment and plan: Stable - Continue current inhaler Qualifiers: Asthma severity: mild Asthma persistence: intermittent Asthma complication type: uncomplicated Qualified Code(s): J45.20 - Mild intermittent asthma, uncomplicated (9) Acute on chronic renal failure Current Visit: Yes Status: Resolved Assessment and plan: Has resolved. Continues with portillo - will d/c at discharge. Qualifiers: Acute renal failure type: with acute tubular necrosis Chronic kidney disease stage: stage 3 (moderate) Qualified Code(s): N17.0 - Acute kidney failure with tubular necrosis; N18.3 - Chronic kidney disease, stage 3 (moderate ); N18.3 - Chronic kidney disease, stage 3 (moderate) (10) Anemia Current Visit: Yes Status: Chronic Assessment and plan: Multifactorial. H/H has been remaining stable. Qualifiers: Anemia type: iron deficiency Iron deficiency anemia type: other iron deficiency Qualified Code(s): D50.8 - Other iron deficiency anemias (11) IVONE (obstructive sleep apnea) Current Visit: Yes Status: Chronic Assessment and plan: He has been compliant with CPAP the last few days and mental status has improved. Continue CPAP PRN and hs. (12) Acute metabolic encephalopathy Current Visit: Yes Status: Resolved Assessment and plan: Resolved. Continue nighttime Seroquel. (13) DVT prophylaxis Current Visit: Yes Status: Acute Assessment and plan: - Ambulation orders per ortho - Eliquis - Time Spent With Patient Total time spent is greater than 50% in coordination of care (as documented) at patient's floor/unit and/or counseling patient: - Subjective Interval history: Mr Spears is currently admitted for L TKR complicated by acute renal failure, encephalopathy and cellulitis. He remains moderate to high risk due to potential for worsening clinical status. Mr Spears is sitting on the edge of the bed. He moved back into the bed with help. He feels OK. No CP or SOB at this time. No fever. Renal function much improved. Has had some dyspnea but appears related to getting upset. Venous duplex negative for DVT. - Constitutional Vitals: Temp Pulse Resp BP Pulse Ox 98.5 F 119 19 172/92 96 01/15/18 06:33 01/15/18 06:33 01/15/18 06:33 01/15/18 06:33 01/15/18 06:33 General appearance: Present: A&O X 3, answers questions appropriately - Head Head exam: Present: normocephalic - Eye Eye exam: Present: conjuntiva pink - ENT ENT exam: Present: mucous membranes dry - Respiratory Respiratory exam: Present: decreased breath sounds. Absent: rales, rhonchi, wheezes - Cardiovascular Cardiovascular exam: Present: RRR. Absent: tachycardia - GI/Abdominal GI/Abdominal exam: Present: soft. Absent: tenderness - Extremities Exam Extremities exam: Present: warm Additional comments: LLE with improving erythema though still present. Warm to touch. No worsening swellling at this time. - Neurological Exam Neurological exam: Present: alert, oriented X3 - Skin Skin exam: Present: dry, erythema, warm Internal Medicine: Result - Labs CBC & Chem 7: 01/15/18 04:30 01/15/18 04:30 Labs: Short CBC 01/15/18 Range/Units 04:30 WBC 7.4 (4.3-11.1) K/mcL Hgb 9.1 L (12.9-16.9) g/dL Hct 28.3 L (37.5-50.1) % Plt Count 239 (140-400) K/mcL BMP 01/15/18 04:30 Sodium 139 Potassium 5.0 Chloride 112 H Carbon Dioxide 24 BUN 44 H Creatinine 1.06 Glucose 136 H Calcium 8.8 - ABG Interpretation ABG results: ABG ABG pH 7.30 pH Units (7.32-7.45) L 01/13/18 15:22 ABG pCO2 48 mmHg (35-45) H 01/13/18 15:22 ABG pO2 105 mmHg (85-104) H 01/13/18 15:22 ABG O2 Saturation 97 % (95-98) 01/13/18 15:22 - VTE Documentation of Mechanical Device: Venous foot pump, device Consult Discharge Plan - Plan Additional Instructions: Take all medications as they are prescribed. DO NOT take zoloft (sertraline) while you are on antibiotics. When you have finished your antibiotics, restart zoloft (sertraline) Follow up with your PCP. Wear your CPAP at night. If you develop: nausea, vomiting, fever, chills, chest pain, difficulty breathing, increasing pain, redness, swelling, or drainage from your surgical site that looks like pus you should contact your PCP or return to the emergency department right away. Referrals: Catherine Lee, PAC [Physician Lithographic Photographer] - 01/21/18 9:00 am Ange Rogel, MACHINE LOADER [Primary Care Provider] - (Patient will follow up with PCP once discharged from rehab) Prescriptions: Linezolid [Zyvox] 600 mg PO BID 4 Days #8 tablet Miconazole 2% cream [Remedy Antifungal] 1 appl TP QDPC #1 tube
[2018-01-15] MEDS ORDERED: Aminoglycoside Consult 1 EACH MC ONE (10:37)
[2018-01-15] MEDS: Piperacillin/Tazobactam 3.375 GM in 0.9 % Sodium Chloride Mini Bag 100 ML IVPB SCH (15:55)
[2018-01-15] MEDS ORDERED: *HR* Metoprolol 5 MG/5 ML VIAL IVP PRN (18:00)
[2018-01-15] MEDS: Insulin DETEMIR 100 UNIT/ML X5UNITS SQ SCH (21:50)
[2018-01-16] MEDS: Piperacillin/Tazobactam 3.375 GM in 0.9 % Sodium Chloride Mini Bag 100 ML IVPB SCH ×2 (00:30→07:27)
[2018-01-16 05:57] LABS: Hematocrit 29.2 % (37.5-50.1); Hemoglobin 9.4 g/dL (12.9-16.9); Mean Corpuscular HGB Conc 32.2 g/dL (31.6-35.5); Mean Corpuscular Hemoglobin 30.5 pg (28.0-33.3); Mean Corpuscular Volume 94.8 fL (83.0-100.0); Mean Platelet Volume 10.5 fL (9.4-12.4); Platelet Count 225 K/mcL (140-400); Red Blood Count 3.08 M/mcL (4.19-5.50); Red Cell Distribution Width 14.1 % (11.5-14.5)
[2018-01-16 06:17] LABS: Alanine Aminotransferase 10 Units/L (7-52); Albumin 2.9 g/dL (3.5-5.7); Albumin/Globulin Ratio 0.9 (1.1-2.2); Alkaline Phosphatase 115 Units/L (34-104); Aspartate Amino Transferase 16 Units/L (13-39); BUN/Creatinine Ratio 36 (6-26); Bilirubin,Total 1.1 mg/dL (0.3-1.0); Blood Urea Nitrogen 35 mg/dL (8-23); Calcium 8.7 mg/dL (8.6-10.3); Carbon Dioxide 27 mEq/L (23-29); Chloride 109 mEq/L (98-107); Globulin 3.4 g/dL (2.4-3.5); Glucose 97 mg/dL (70-105); Magnesium 1.8 mg/dL (1.6-2.6); Osmolality,Calculated 300 (280-300); Potassium 4.7 mEq/L (3.5-5.1); Sodium 141 mEq/L (136-145); Total Protein 6.3 g/dL (6.4-8.9); eGFR For African Americans > 60 (> 60); eGFR For Non-African Americans > 60 (> 60)
[2018-01-16 07:04] VITALS: BP 138/70
[2018-01-16] MEDS: Insulin LISPRO 300 UNITS/3 ML VIAL SQ SCH (07:16)
[2018-01-16] MEDS: Thiamine (B-1) 100 MG TABLET PO SCH (07:27)
[2018-01-16] MEDS: Cyanocobalamin (B-12) 1,000 MCG TABLET PO SCH (07:27)
[2018-01-16] MEDS: Apixaban 5 MG TABLET PO SCH (07:27)
[2018-01-16] MEDS: Ketoconazole 2% CRM 15 GM TUBE TP SCH (07:35)
--- NOTE | 2018-01-16 09:12 | Internal Med Progress Note ---
Date of Encounter: 01/16/18 Time of Encounter: 08:45 - Assessment and plan (1) Cellulitis of left lower extremity Status: Acute Assessment and plan: Continues to improve. At this time I feel he can go to rehab and continue PO abx (Zyvox). Continue post op knee care as per ortho. (2) Arthritis of knee, left Status: Chronic Assessment and plan: Chronic issue (3) Status post total knee replacement, left Status: Acute Assessment and plan: Per ortho (4) Atrial fibrillation Status: Chronic Assessment and plan: Had rapid a fib last night but better controlled now. On PO Coreg Qualifiers: Atrial fibrillation type: chronic Qualified Code(s): I48.2 - Chronic atrial fibrillation (5) CAD (coronary artery disease) Status: Chronic Assessment and plan: Chronic issue Qualifiers: Coronary Disease-Associated Artery/Lesion type: [place] artery [place] vs. transplanted heart: [place] heart Associated angina: without angina Qualified Code(s): I25.10 - Atherosclerotic heart disease of [place] coronary artery without angina pectoris (6) HTN (hypertension) Status: Chronic Assessment and plan: Controlled at this time. Qualifiers: Hypertension type: essential hypertension Qualified Code(s): I10 - Essential (primary) hypertension (7) DMII (diabetes mellitus, type 2) Status: Chronic Assessment and plan: Continue monitor blood sugar and cover. Qualifiers: Diabetes mellitus buttermaker continuous churn insulin use: with correction use Diabetes mellitus complication status: with hyperglycemia Qualified Code(s): E11.65 - Type 2 diabetes mellitus with hyperglycemia; Z79.4 - buttermaker continuous churn (current) use of insulin; Z79.4 - long-term (current) use of insulin; Z79.4 - buttermaker continuous churn (current ) use of insulin; Z79.4 - long-term (current) use of insulin (8) Asthma Status: Chronic Assessment and plan: No acute issues at this time. Qualifiers: Asthma severity: mild Asthma persistence: intermittent Asthma complication type: uncomplicated Qualified Code(s): J45.20 - Mild intermittent asthma, uncomplicated (9) Acute on chronic renal failure Status: Resolved Assessment and plan: Resolved. Renal function normal Qualifiers: Acute renal failure type: with acute tubular necrosis Chronic kidney disease stage: stage 3 (moderate) Qualified Code(s): N17.0 - Acute kidney failure with tubular necrosis; N18.3 - Chronic kidney disease, stage 3 (moderate ); N18.3 - Chronic kidney disease, stage 3 (moderate) (10) Anemia Status: Chronic Assessment and plan: Chronic issue Qualifiers: Anemia type: iron deficiency Iron deficiency anemia type: other iron deficiency Qualified Code(s): D50.8 - Other iron deficiency anemias (11) IVONE (obstructive sleep apnea) Status: Chronic Assessment and plan: Continue bipap (12) Acute metabolic encephalopathy Status: Resolved Assessment and plan: Resolved (13) DVT prophylaxis Status: Acute - Time Spent With Patient Total time spent is greater than 50% in coordination of care (as documented) at patient's floor/unit and/or counseling patient: - Subjective Interval history: Mr Spears is currently admitted for L TKR complicated by acute renal failure, encephalopathy and cellulitis. He remains moderate to high risk due to potential for worsening clinical status. Mr Spears was not happy portillo removed and urinated everywhere. He is feeling better and wants to go to rehab. No fever at this time. No CP or SOB. Had episode of rapid a fib last night but better now. Coreg dose increased. - Constitutional Vitals: Temp Pulse Resp BP Pulse Ox 97.7 F 96 16 138/70 99 01/16/18 06:57 01/16/18 06:57 01/16/18 06:57 01/16/18 06:57 01/16/18 06:57 General appearance: Present: A&O X 3, answers questions appropriately - Head Head exam: Present: normocephalic - Eye Eye exam: Present: conjuntiva pink - ENT ENT exam: Present: mucous membranes dry - Respiratory Respiratory exam: Present: decreased breath sounds. Absent: rales, rhonchi, wheezes - Cardiovascular Cardiovascular exam: Present: irregular rhythm. Absent: tachycardia - GI/Abdominal GI/Abdominal exam: Present: soft. Absent: tenderness - Extremities Exam Additional comments: LLE with improving redness. Edema about the same. - Neurological Exam Neurological exam: Present: alert, oriented X3 - Skin Skin exam: Present: dry, erythema, warm Internal Medicine: Result - Labs CBC & Chem 7: 01/16/18 05:21 01/16/18 05:21 Labs: Short CBC 01/16/18 Range/Units 05:21 WBC 7.6 (4.3-11.1) K/mcL Hgb 9.4 L (12.9-16.9) g/dL Hct 29.2 L (37.5-50.1) % Plt Count 225 (140-400) K/mcL BMP 01/16/18 05:21 Sodium 141 Potassium 4.7 Chloride 109 H Carbon Dioxide 27 BUN 35 H Creatinine 0.98 Glucose 97 Calcium 8.7 Liver Function 01/16/18 Range/Units 05:21 Total Bilirubin 1.1 H (0.3-1.0) mg/dL AST 16 (13-39) Units/L ALT 10 (7-52) Units/L Alkaline Phosphatase 115 H (34-104) Units/L Albumin 2.9 L (3.5-5.7) g/dL - ABG Interpretation ABG results: ABG ABG pH 7.30 pH Units (7.32-7.45) L 01/13/18 15:22 ABG pCO2 48 mmHg (35-45) H 01/13/18 15:22 ABG pO2 105 mmHg (85-104) H 01/13/18 15:22 ABG O2 Saturation 97 % (95-98) 01/13/18 15:22 - Impressions Impressions Knee X-Ray 01/13/18 01:00 IMPRESSION: Stable postsurgical changes from left knee arthroplasty. Persistent soft tissue swelling and joint effusion. D/ / 01/13/2018 15:15:47 Esperanza Conner MD / [email or web address] Interpreting Provider: Esperanza Conner MD - VTE Documentation of Mechanical Device: Venous foot pump, device Consult Discharge Plan - Plan Instructions: Total Knee Replacement, Ordering Machine Operator (GEN) Additional Instructions: Take all medications as they are prescribed. DO NOT take zoloft (sertraline) while you are on antibiotics. When you have finished your antibiotics, restart zoloft (sertraline) Follow up with your PCP. Wear your CPAP at night. If you develop: nausea, vomiting, fever, chills, chest pain, difficulty breathing, increasing pain, redness, swelling, or drainage from your surgical site that looks like pus you should contact your PCP or return to the emergency department right away. Referrals: Catherine Lee, PAC [Physician Engraver Rubber] - 01/21/18 9:00 am Ange Rogel, CORPORATE INTERN [Primary Care Provider] - (Patient will follow up with PCP once discharged from rehab) Prescriptions: clonazePAM [Klonopin] 0.5 mg PO HS PRN 2 Days #2 tablet PRN Reason: Anxiety Furosemide [Lasix] 20 mg PO DAILY #2 tablet HYDROcodone/Acet 5/325 mg [[place] 5-325 mg] 1 tab PO Q6H PRN 1 Days #5 tablet PRN Reason: Mild To Moderate Pain Linezolid [Zyvox] 600 mg PO BID 4 Days #8 tablet Miconazole 2% cream [Remedy Antifungal] 1 appl TP QDPC #1 tube
--- NOTE | 2018-01-18 17:08 | Electrocardiograph Report ---
[address] [place] [address] Test Date: 2018-01-15 Pat Name: Mark Spears Department: [id number] Room: 2A12 Gender: Male Surveillance System Monitor: : 1945 Requested By: Rickie Riavs Order Number: [id number] Reading MD: Solange Vogt Measurements Intervals [place] Rate: 106 P: [place]: 0 QRS: 22 QRSD: 90 T: 70 QT: 309 QTc: 371 Interpretive Statements ATRIAL FIBRILLATION WITH RAPID VENTRICULAR RESPONSE LOW QRS VOLTAGE Electronically Signed On 01-18-2018 17:07:09 EDT by Solange Vogt
== END 2018-01-16 10:38 | DRG 469 ==
LOC: SAMDAY 10:28 → 3NENU 15:46 → SUATTDRO 20:54 → 3NENU 20:54 → 2ANU 01-11 13:48
PROVIDERS: ADMIT Orthopaedic Surgery; ATTEND Internal Medicine

== ENCOUNTER 2020-05-17 00:08 | Inpatient (IN) ==
[2020-05-17] MEDS: Norepinephrine 4 MG/254 ML IV.SOLN IVC SCH ×2 (01:55→23:21)
[2020-05-17] MEDS ORDERED: Isovue-370 500 ML BOTTLE IVP ONE (02:07)
[2020-05-17] MEDS ORDERED: Naloxone 0.4 MG/ML INJ IVP PRN (02:10)
[2020-05-17] MEDS ORDERED: *HR* Dextrose 50 % in Water (Vial) 50 ML VIAL IVP PRN (02:17)
[2020-05-17] MEDS ORDERED: D5% in Water 1,000 ML IVC PRN (02:17)
[2020-05-17] MEDS ORDERED: Dextrose Gel 15 GM/37.5 ML TUBE PO PRN ×2 (02:17)
[2020-05-17] MEDS ORDERED: 0.9 % Sodium Chloride 1,000 ML IV ONE ×2 (03:32→05:50)
[2020-05-17] MEDS: *HR* HYDROcodone/Acet 5/325 mg TABLET PO PRN ×3 (03:58→17:17)
[2020-05-17 04:47] LABS: INR 2.1; Prothrombin Time 24.2 Seconds (9.4-12.1)
[2020-05-17 04:50] LABS: Activated Partial Thrombo Time 33.4 Seconds (26.0-36.0)
[2020-05-17 04:55] LABS: Basophils % 0.1 %; Hematocrit 33.9 % (37.5-50.1); Hemoglobin 10.8 g/dL (12.9-16.9); Immature Granulocytes % 0.8 % (0-4); Immature Platelets 8.4 % (1.1-6.1); Lymphocytes # 0.3 K/mcL (0.6-4.6); Lymphocytes % 1.5 %; Mean Corpuscular HGB Conc 31.9 g/dL (31.6-35.5); Mean Corpuscular Hemoglobin 30.9 pg (28.0-33.3); Mean Corpuscular Volume 97.1 fL (83.0-100.0); Mean Platelet Volume 11.8 fL (9.4-12.4); Monocytes # 0.9 K/mcL (0.0-1.3); Neutrophils # 19.9 K/mcL (1.6-8.9); Platelet Count 136 K/mcL (140-400); Red Blood Count 3.49 M/mcL (4.19-5.50); Red Cell Distribution Width 13.6 % (11.5-14.5); Segmented Neutrophils % 93.6 %; White Blood Count 21.3 K/mcL (4.3-11.1)
[2020-05-17 05:01] LABS: Calcium 7.8 mg/dL (8.6-10.3); Magnesium 1.5 mg/dL (1.6-2.6); Phosphorous 3.7 mg/dL (2.7-4.5); Potassium 4.9 mEq/L (3.5-5.1)
[2020-05-17] MEDS ORDERED: Nicotine 21 MG PATCH.TD24 TD PRN (05:53)
[2020-05-17] MEDS ORDERED: *HR* Heparin 5,000 UNIT/ML VIAL SQ SCH (06:00)
[2020-05-17] MEDS: Albuterol 2.5 MG/3 ML NEBULIZER IH SCH ×5 (07:54→23:15)
[2020-05-17] MEDS: Insulin LISPRO 300 UNITS/3 ML VIAL SQ SCH ×3 (09:39→16:58)
[2020-05-17] MEDS ORDERED: Cefepime HCl 2,000 MG in Water for inj. (sterile) 20 ML IVP SCH ×2 (12:00→23:00)
[2020-05-17] MEDS ORDERED: Piperacillin/Tazobactam 3.375 GM in 0.9 % Sodium Chloride Mini Bag 100 ML IVPB SCH (16:00)
[2020-05-17] MEDS: Apixaban 5 MG TABLET PO SCH (20:16)
[2020-05-17] MEDS ORDERED: Insulin LISPRO 300 UNITS/3 ML VIAL SQ SCH (21:00)
[2020-05-18] MEDS ORDERED: Acetaminophen 325 MG TABLET PO ONE (02:02)
[2020-05-18] MEDS: Albuterol 2.5 MG/3 ML NEBULIZER IH SCH ×6 (03:24→23:12)
[2020-05-18 05:08] LABS: Basophils % 0.1 %; Eosinophils # 0.2 K/mcL (0.0-0.6); Eosinophils % 1.3 %; Hematocrit 33.8 % (37.5-50.1); Hemoglobin 10.6 g/dL (12.9-16.9); Immature Granulocytes % 0.9 % (0-4); Lymphocytes # 0.5 K/mcL (0.6-4.6); Lymphocytes % 3.4 %; Mean Corpuscular HGB Conc 31.4 g/dL (31.6-35.5); Mean Corpuscular Hemoglobin 30.4 pg (28.0-33.3); Mean Corpuscular Volume 96.8 fL (83.0-100.0); Mean Platelet Volume 12.4 fL (9.4-12.4); Monocytes # 0.9 K/mcL (0.0-1.3); Neutrophils # 13.1 K/mcL (1.6-8.9); Platelet Count 137 K/mcL (140-400); Red Blood Count 3.49 M/mcL (4.19-5.50); Red Cell Distribution Width 13.9 % (11.5-14.5); Segmented Neutrophils % 88.3 %; White Blood Count 14.9 K/mcL (4.3-11.1)
[2020-05-18 05:33] LABS: Albumin 2.7 g/dL (3.5-5.7); Albumin/Globulin Ratio 0.8 (1.1-2.2); Bilirubin,Total 0.6 mg/dL (0.3-1.0); Calcium 8.2 mg/dL (8.6-10.3); Globulin 3.6 g/dL (2.4-3.5); Potassium 4.8 mEq/L (3.5-5.1); Total Protein 6.3 g/dL (6.4-8.9)
[2020-05-18] MEDS: Insulin LISPRO 300 UNITS/3 ML VIAL SQ SCH ×4 (08:05→20:09)
[2020-05-18] MEDS: Apixaban 5 MG TABLET PO SCH ×2 (08:05→20:11)
[2020-05-18] MEDS: *HR* HYDROcodone/Acet 5/325 mg TABLET PO PRN ×2 (08:07→17:36)
[2020-05-18] MEDS ORDERED: Dextrose Gel 15 GM/37.5 ML TUBE PO PRN ×2 (09:44)
[2020-05-18] MEDS ORDERED: *HR* Dextrose 50 % in Water (Vial) 50 ML VIAL IVP PRN (09:44)
[2020-05-18] MEDS ORDERED: D5% in Water 1,000 ML IVC PRN (09:44)
[2020-05-18] MEDS ORDERED: Naloxone 0.4 MG/ML INJ IVP PRN (09:44)
[2020-05-18] MEDS ORDERED: Cefdinir 300 MG CAPSULE PO SCH (09:45)
[2020-05-18] MEDS: Cefdinir 300 MG CAPSULE PO SCH ×2 (09:50→20:10)
[2020-05-18] MEDS ORDERED: carvediloL 6.25 MG TABLET PO SCH (17:00)
[2020-05-18] MEDS: Nicotine 21 MG PATCH.TD24 TD PRN (22:21)
[2020-05-19] MEDS: Albuterol 2.5 MG/3 ML NEBULIZER IH SCH ×5 (03:31→19:45)
[2020-05-19] MEDS ORDERED: Perflutren Lipid Microsphere 1.3 ML in 0.9 % Sodium Chloride 8.7 ML IVP PRN (07:28)
[2020-05-19 08:24] LABS: Basophils % 0.1 %; Eosinophils # 0.1 K/mcL (0.0-0.6); Eosinophils % 0.6 %; Hematocrit 31.4 % (37.5-50.1); Immature Granulocytes % 1.1 % (0-4); Lymphocytes # 0.5 K/mcL (0.6-4.6); Lymphocytes % 3.3 %; Mean Corpuscular HGB Conc 31.8 g/dL (31.6-35.5); Mean Corpuscular Hemoglobin 30.7 pg (28.0-33.3); Mean Corpuscular Volume 96.3 fL (83.0-100.0); Mean Platelet Volume 12.3 fL (9.4-12.4); Monocytes # 0.8 K/mcL (0.0-1.3); Monocytes % 5.5 %; Neutrophils # 12.6 K/mcL (1.6-8.9); Platelet Count 130 K/mcL (140-400); Red Blood Count 3.26 M/mcL (4.19-5.50); Red Cell Distribution Width 13.8 % (11.5-14.5); Segmented Neutrophils % 89.4 %; White Blood Count 14.1 K/mcL (4.3-11.1)
[2020-05-19 08:34] LABS: Albumin 2.6 g/dL (3.5-5.7); Albumin/Globulin Ratio 0.8 (1.1-2.2); Bilirubin,Total 0.7 mg/dL (0.3-1.0); Calcium 8.1 mg/dL (8.6-10.3); Globulin 3.4 g/dL (2.4-3.5); Potassium 4.5 mEq/L (3.5-5.1)
[2020-05-19] MEDS: Insulin LISPRO 300 UNITS/3 ML VIAL SQ SCH ×4 (08:40→20:17)
[2020-05-19] MEDS: Apixaban 5 MG TABLET PO SCH ×2 (08:40→20:16)
[2020-05-19] MEDS: Metoprolol XL (24 HR) Succ 25 MG TAB.ER.24H PO SCH (08:40)
[2020-05-19] MEDS: Cefdinir 300 MG CAPSULE PO SCH ×2 (08:40→20:16)
[2020-05-19] MEDS: *HR* HYDROcodone/Acet 5/325 mg TABLET PO PRN ×2 (08:44→20:24)
[2020-05-19] MEDS ORDERED: 0.9 % Sodium Chloride 1,000 ML IVC SCH (10:15)
[2020-05-19] MEDS: polyethylene glycoL 3350 17 GM POWD.PACK PO SCH (16:03)
[2020-05-19 16:05] LABS: Bacteria,Urine Few per hpf (None-Few); Bilirubin,Urine Negative (Negative); Blood,Urine Small (Negative); Clarity,Urine Clear (Clear); Color,Urine Yellow (Yellow); Glucose,Urine (UA) Normal (Normal); Ketones,Urine Trace mg/dL (Negative); Leukocyte Esterase,Urine Negative (Negative); Nitrite,Urine Negative (Negative); PH,Urine 5.5 pH Units (5.0-8.0); Protein,Urine Trace mg/dL (Neg-Trace); RBC,Urine 15-30 per hpf (0-3); Specific Gravity,Urine 1.023 (1.010-1.025); Urobilinogen,Urine Normal (Normal)
[2020-05-20 02:42] LABS: Basophils % 0.2 %; Eosinophils # 0.2 K/mcL (0.0-0.6); Eosinophils % 1.9 %; Hematocrit 30.2 % (37.5-50.1); Hemoglobin 9.7 g/dL (12.9-16.9); Lymphocytes # 0.5 K/mcL (0.6-4.6); Mean Corpuscular HGB Conc 32.1 g/dL (31.6-35.5); Mean Corpuscular Hemoglobin 30.6 pg (28.0-33.3); Mean Corpuscular Volume 95.3 fL (83.0-100.0); Mean Platelet Volume 12.1 fL (9.4-12.4); Monocytes # 0.6 K/mcL (0.0-1.3); Monocytes % 5.5 %; Neutrophils # 9.9 K/mcL (1.6-8.9); Platelet Count 132 K/mcL (140-400); Red Blood Count 3.17 M/mcL (4.19-5.50); Red Cell Distribution Width 13.8 % (11.5-14.5); Segmented Neutrophils % 87.4 %; White Blood Count 11.3 K/mcL (4.3-11.1)
[2020-05-20 03:02] LABS: Albumin 2.5 g/dL (3.5-5.7); Albumin/Globulin Ratio 0.7 (1.1-2.2); Bilirubin,Total 0.7 mg/dL (0.3-1.0); Globulin 3.5 g/dL (2.4-3.5); Potassium 4.5 mEq/L (3.5-5.1)
[2020-05-20] MEDS: Albuterol 2.5 MG/3 ML NEBULIZER IH SCH ×7 (03:31→23:10)
[2020-05-20] MEDS: *HR* HYDROcodone/Acet 5/325 mg TABLET PO PRN ×3 (04:53→22:48)
[2020-05-20] MEDS: Nicotine 21 MG PATCH.TD24 TD PRN (04:53)
[2020-05-20] MEDS: Insulin LISPRO 300 UNITS/3 ML VIAL SQ SCH ×4 (07:42→20:36)
[2020-05-20] MEDS: polyethylene glycoL 3350 17 GM POWD.PACK PO SCH (07:43)
[2020-05-20] MEDS: Cefdinir 300 MG CAPSULE PO SCH ×2 (07:43→20:36)
[2020-05-20] MEDS: Apixaban 5 MG TABLET PO SCH (07:43)
[2020-05-20] MEDS: Metoprolol XL (24 HR) Succ 25 MG TAB.ER.24H PO SCH (07:51)
[2020-05-20] MEDS ORDERED: 0.9 % Sodium Chloride 1,000 ML IVC SCH (08:00)
[2020-05-20] MEDS ORDERED: 0.9 % Sodium Chloride 1,000 ML ONE (09:11)
[2020-05-21] MEDS ORDERED: Acetaminophen 325 MG TABLET PO ONE (03:19)
[2020-05-21] MEDS: Albuterol 2.5 MG/3 ML NEBULIZER IH SCH ×6 (04:07→23:24)
[2020-05-21 05:26] LABS: Mean Platelet Volume 11.8 fL (9.4-12.4); Segmented Neutrophils % 79.2 %
[2020-05-21 05:28] LABS: Basophils % 0.4 %; Eosinophils # 0.3 K/mcL (0.0-0.6); Eosinophils % 3.6 %; Hematocrit 30.9 % (37.5-50.1); Immature Granulocytes % 1.3 % (0-4); Immature Platelets 7.4 % (1.1-6.1); Lymphocytes # 0.6 K/mcL (0.6-4.6); Lymphocytes % 8.2 %; Mean Corpuscular HGB Conc 32.4 g/dL (31.6-35.5); Mean Corpuscular Hemoglobin 30.7 pg (28.0-33.3); Mean Corpuscular Volume 94.8 fL (83.0-100.0); Monocytes # 0.6 K/mcL (0.0-1.3); Monocytes % 7.3 %; Platelet Count 133 K/mcL (140-400); Red Blood Count 3.26 M/mcL (4.19-5.50); Red Cell Distribution Width 13.6 % (11.5-14.5); White Blood Count 7.6 K/mcL (4.3-11.1)
[2020-05-21 05:51] LABS: Calcium 8.2 mg/dL (8.6-10.3); Magnesium 1.9 mg/dL (1.6-2.6); Potassium 4.4 mEq/L (3.5-5.1)
[2020-05-21] MEDS: Insulin LISPRO 300 UNITS/3 ML VIAL SQ SCH ×4 (07:24→20:17)
[2020-05-21] MEDS ORDERED: Perflutren Lipid Microsphere 1.3 ML in 0.9 % Sodium Chloride 8.7 ML IVP PRN (07:30)
[2020-05-21] MEDS ORDERED: Furosemide 40 MG TABLET PO SCH (09:00)
[2020-05-21] MEDS: polyethylene glycoL 3350 17 GM POWD.PACK PO SCH (09:14)
[2020-05-21] MEDS: Cefdinir 300 MG CAPSULE PO SCH ×2 (09:14→19:29)
[2020-05-21] MEDS: Furosemide 40 MG TABLET PO SCH (09:14)
[2020-05-21] MEDS: Nicotine 21 MG PATCH.TD24 TD PRN (09:14)
[2020-05-21] MEDS: Metoprolol XL (24 HR) Succ 25 MG TAB.ER.24H PO SCH (09:14)
[2020-05-21] MEDS: *HR* HYDROcodone/Acet 5/325 mg TABLET PO PRN ×2 (09:24→20:15)
[2020-05-22 03:06] LABS: Basophils % 0.4 %; Eosinophils # 0.2 K/mcL (0.0-0.6); Eosinophils % 2.5 %; Hemoglobin 10.7 g/dL (12.9-16.9); Immature Granulocytes % 2.6 % (0-4); Lymphocytes # 0.7 K/mcL (0.6-4.6); Lymphocytes % 8.1 %; Mean Corpuscular HGB Conc 32.4 g/dL (31.6-35.5); Mean Corpuscular Hemoglobin 31.5 pg (28.0-33.3); Mean Corpuscular Volume 97.1 fL (83.0-100.0); Mean Platelet Volume 11.9 fL (9.4-12.4); Monocytes # 0.7 K/mcL (0.0-1.3); Monocytes % 7.9 %; Neutrophils # 6.7 K/mcL (1.6-8.9); Platelet Count 164 K/mcL (140-400); Red Cell Distribution Width 13.9 % (11.5-14.5); Segmented Neutrophils % 78.5 %; White Blood Count 8.5 K/mcL (4.3-11.1)
[2020-05-22 03:16] LABS: Calcium 8.3 mg/dL (8.6-10.3); Potassium 4.7 mEq/L (3.5-5.1)
[2020-05-22] MEDS: *HR* HYDROcodone/Acet 5/325 mg TABLET PO PRN ×2 (03:23→20:18)
[2020-05-22] MEDS: Albuterol 2.5 MG/3 ML NEBULIZER IH SCH ×6 (03:59→23:23)
[2020-05-22] MEDS ORDERED: Acetaminophen 325 MG TABLET PO ONE (05:17)
[2020-05-22] MEDS: Insulin LISPRO 300 UNITS/3 ML VIAL SQ SCH ×4 (08:03→20:21)
[2020-05-22] MEDS: polyethylene glycoL 3350 17 GM POWD.PACK PO SCH (08:03)
[2020-05-22] MEDS: Cefdinir 300 MG CAPSULE PO SCH ×2 (08:05→20:19)
[2020-05-22] MEDS: Furosemide 40 MG TABLET PO SCH (08:05)
[2020-05-22] MEDS: Metoprolol XL (24 HR) Succ 25 MG TAB.ER.24H PO SCH (08:05)
[2020-05-22] MEDS: Nicotine 21 MG PATCH.TD24 TD PRN (09:15)
[2020-05-22] MEDS: Apixaban 5 MG TABLET PO SCH (20:19)
[2020-05-23] MEDS: Albuterol 2.5 MG/3 ML NEBULIZER IH SCH ×4 (03:49→15:17)
[2020-05-23] MEDS: *HR* HYDROcodone/Acet 5/325 mg TABLET PO PRN (04:33)
[2020-05-23 06:06] LABS: Hematocrit 31.3 % (37.5-50.1); Mean Corpuscular HGB Conc 31.9 g/dL (31.6-35.5); Mean Corpuscular Hemoglobin 31.2 pg (28.0-33.3); Mean Corpuscular Volume 97.5 fL (83.0-100.0); Mean Platelet Volume 11.5 fL (9.4-12.4); Platelet Count 177 K/mcL (140-400); Red Blood Count 3.21 M/mcL (4.19-5.50); Red Cell Distribution Width 14.2 % (11.5-14.5); White Blood Count 8.2 K/mcL (4.3-11.1)
[2020-05-23 07:10] LABS: BUN/Creatinine Ratio 32 (6-26); Blood Urea Nitrogen 37 mg/dL (8-23); Calcium 7.9 mg/dL (8.6-10.3); Carbon Dioxide 14 mEq/L (23-29); Chloride 107 mEq/L (98-107); Glucose 178 mg/dL (70-105); Magnesium 1.8 mg/dL (1.6-2.6); Osmolality,Calculated 285 (280-300); Potassium 4.9 mEq/L (3.5-5.1); Sodium 131 mEq/L (136-145); eGFR For African Americans > 60 (> 60); eGFR For Non-African Americans > 60 (> 60)
[2020-05-23] MEDS: Furosemide 40 MG TABLET PO SCH (08:37)
[2020-05-23] MEDS: Cefdinir 300 MG CAPSULE PO SCH (08:37)
[2020-05-23] MEDS: Metoprolol XL (24 HR) Succ 25 MG TAB.ER.24H PO SCH (08:37)
[2020-05-23] MEDS: polyethylene glycoL 3350 17 GM POWD.PACK PO SCH (08:38)
[2020-05-23] MEDS: Apixaban 5 MG TABLET PO SCH (08:38)
[2020-05-23] MEDS: Insulin LISPRO 300 UNITS/3 ML VIAL SQ SCH ×2 (08:38→12:05)
[2020-05-23 15:12] VITALS: BP 144/82
== END 2020-05-23 17:12 | disposition home health service (06) | DRG 871 ==
LOC: ICNU 01:51 → SUATTDRO 01:51 → 2ANU 05-18 15:20
PROVIDERS: ADMIT Internal Medicine; ATTEND Internal Medicine

== ENCOUNTER 2020-05-25 02:23 | Observation (INO) ==
[2020-05-25] MEDS ORDERED: Naloxone 0.4 MG/ML INJ IVP PRN (02:36)
[2020-05-25] MEDS ORDERED: *HR* Promethazine 25 MG/ML VIAL IVP PRN (02:36)
[2020-05-25] MEDS: Acetaminophen 325 MG TABLET PO PRN ×2 (03:23→16:32)
[2020-05-25] MEDS: 0.9 % Sodium Chloride 1,000 ML IVC SCH (03:24)
[2020-05-25 04:05] LABS: Basophils % 0.2 %; Eosinophils # 0.2 K/mcL (0.0-0.6); Eosinophils % 1.8 %; Hemoglobin 10.8 g/dL (12.9-16.9); Immature Granulocytes % 3.6 % (0-4); Lymphocytes # 0.8 K/mcL (0.6-4.6); Lymphocytes % 8.6 %; Mean Corpuscular HGB Conc 32.7 g/dL (31.6-35.5); Mean Corpuscular Hemoglobin 31.1 pg (28.0-33.3); Mean Corpuscular Volume 95.1 fL (83.0-100.0); Mean Platelet Volume 11.2 fL (9.4-12.4); Monocytes # 0.6 K/mcL (0.0-1.3); Monocytes % 6.5 %; Neutrophils # 7.6 K/mcL (1.6-8.9); Platelet Count 234 K/mcL (140-400); Red Blood Count 3.47 M/mcL (4.19-5.50); Red Cell Distribution Width 14.3 % (11.5-14.5); Segmented Neutrophils % 79.3 %; White Blood Count 9.6 K/mcL (4.3-11.1)
[2020-05-25] MEDS ORDERED: Dextrose Gel 15 GM/37.5 ML TUBE PO PRN ×2 (04:18)
[2020-05-25] MEDS ORDERED: D5% in Water 1,000 ML IVC PRN (04:18)
[2020-05-25] MEDS ORDERED: *HR* Dextrose 50 % in Water (Vial) 50 ML VIAL IVP PRN (04:18)
[2020-05-25 04:25] LABS: Alanine Aminotransferase 11 Units/L (7-52); Albumin 2.7 g/dL (3.5-5.7); Albumin/Globulin Ratio 0.7 (1.1-2.2); Alkaline Phosphatase 190 Units/L (34-104); Aspartate Amino Transferase 14 Units/L (13-39); BUN/Creatinine Ratio 22 (6-26); Bilirubin,Total 0.9 mg/dL (0.3-1.0); Blood Urea Nitrogen 19 mg/dL (8-23); C-Reactive Protein 69 mg/L (Less than 10); Calcium 8.3 mg/dL (8.6-10.3); Carbon Dioxide 23 mEq/L (23-29); Chloride 105 mEq/L (98-107); Globulin 3.8 g/dL (2.4-3.5); Glucose 198 mg/dL (70-105); Magnesium 1.7 mg/dL (1.6-2.6); Osmolality,Calculated 288 (280-300); Phosphorous 1.8 mg/dL (2.7-4.5); Sodium 135 mEq/L (136-145); Total Protein 6.5 g/dL (6.4-8.9); eGFR For African Americans > 60 (> 60); eGFR For Non-African Americans > 60 (> 60)
[2020-05-25] MEDS: Insulin LISPRO 300 UNITS/3 ML VIAL SQ SCH ×4 (04:59→17:40)
[2020-05-25 07:46] LABS: Estimated Average Glucose 180 mg/dl; Hemoglobin A1C 7.9 %
[2020-05-25] MEDS: Piperacillin/Tazobactam 3.375 GM in 0.9 % Sodium Chloride Mini Bag 100 ML IVPB SCH ×3 (09:08→23:17)
[2020-05-25 10:38] LABS: Bilirubin,Urine Negative (Negative); Blood,Urine Large (Negative); Clarity,Urine Clear (Clear); Color,Urine Yellow (Yellow); Glucose,Urine (UA) Normal (Normal); Ketones,Urine Negative (Negative); Leukocyte Esterase,Urine Negative (Negative); Nitrite,Urine Negative (Negative); Protein,Urine 30 mg/dL (Neg-Trace); Specific Gravity,Urine 1.015 (1.010-1.025); Urobilinogen,Urine Normal (Normal)
[2020-05-25 10:43] LABS: Bacteria,Urine Few per hpf (None-Few); Mucus,Urine Few per lpf (None-Few); RBC,Urine TNTC per hpf (0-3); Squamous Epithelial Cell,Urine Few per hpf (None-Few); Uric Acid Crystals,Urine Present
[2020-05-25] MEDS ORDERED: MOM Conc 10 ML UD.LIQ PO PRN (16:42)
[2020-05-25] MEDS ORDERED: Ergocalciferol (VIT D2) 50,000 UNIT (1.25MG) CAP PO SCH (16:45)
[2020-05-25] MEDS: Vancomycin 1,750 MG/517.5 ML IV.SOLN IVPB SCH (17:24)
[2020-05-25] MEDS: Apixaban 5 MG TABLET PO SCH (20:32)
[2020-05-25] MEDS: Insulin DETEMIR 100 UNIT/ML X5UNITS SQ SCH (20:32)
[2020-05-26] MEDS: 0.9 % Sodium Chloride 1,000 ML IVC SCH (05:36)
[2020-05-26] MEDS: Vancomycin 1,750 MG/517.5 ML IV.SOLN IVPB SCH (06:00)
[2020-05-26] MEDS: Cyanocobalamin (B-12) 1,000 MCG TABLET PO SCH (08:06)
[2020-05-26] MEDS: Apixaban 5 MG TABLET PO SCH ×2 (08:06→20:09)
[2020-05-26] MEDS: Furosemide 40 MG TABLET PO SCH (08:06)
[2020-05-26] MEDS: lisinopriL 10 MG TABLET PO SCH (08:07)
[2020-05-26] MEDS: Metoprolol XL (24 HR) Succ 25 MG TAB.ER.24H PO SCH (08:07)
[2020-05-26] MEDS: Thiamine (B-1) 100 MG TABLET PO SCH (08:07)
[2020-05-26] MEDS: Piperacillin/Tazobactam 3.375 GM in 0.9 % Sodium Chloride Mini Bag 100 ML IVPB SCH ×3 (08:07→23:29)
[2020-05-26] MEDS: Insulin LISPRO 300 UNITS/3 ML VIAL SQ SCH ×3 (08:07→16:22)
[2020-05-26] MEDS: Acetaminophen 325 MG TABLET PO PRN ×2 (08:11→20:11)
[2020-05-26 12:14] LABS: Hematocrit 34.7 % (37.5-50.1); Hemoglobin 11.2 g/dL (12.9-16.9); Mean Corpuscular HGB Conc 32.3 g/dL (31.6-35.5); Mean Corpuscular Hemoglobin 30.9 pg (28.0-33.3); Mean Corpuscular Volume 95.6 fL (83.0-100.0); Mean Platelet Volume 10.7 fL (9.4-12.4); Platelet Count 244 K/mcL (140-400); Red Blood Count 3.63 M/mcL (4.19-5.50); Red Cell Distribution Width 14.2 % (11.5-14.5); White Blood Count 10.5 K/mcL (4.3-11.1)
[2020-05-26 12:36] LABS: BUN/Creatinine Ratio 15 (6-26); Blood Urea Nitrogen 13 mg/dL (8-23); Calcium 8.1 mg/dL (8.6-10.3); Carbon Dioxide 24 mEq/L (23-29); Chloride 109 mEq/L (98-107); Glucose 103 mg/dL (70-105); Osmolality,Calculated 284 (280-300); Potassium 4.6 mEq/L (3.5-5.1); Sodium 137 mEq/L (136-145); eGFR For African Americans > 60 (> 60); eGFR For Non-African Americans > 60 (> 60)
[2020-05-26] MEDS: *HR* HYDROcodone/Acet 5/325 mg TABLET PO PRN (16:48)
[2020-05-26] MEDS: Insulin DETEMIR 100 UNIT/ML X5UNITS SQ SCH (20:09)
[2020-05-27] MEDS: *HR* HYDROcodone/Acet 5/325 mg TABLET PO PRN ×3 (06:05→20:34)
[2020-05-27 08:03] LABS: Hematocrit 33.5 % (37.5-50.1); Hemoglobin 10.8 g/dL (12.9-16.9); Mean Corpuscular HGB Conc 32.2 g/dL (31.6-35.5); Mean Corpuscular Hemoglobin 30.7 pg (28.0-33.3); Mean Corpuscular Volume 95.2 fL (83.0-100.0); Mean Platelet Volume 10.4 fL (9.4-12.4); Platelet Count 244 K/mcL (140-400); Red Blood Count 3.52 M/mcL (4.19-5.50); Red Cell Distribution Width 14.3 % (11.5-14.5); White Blood Count 9.2 K/mcL (4.3-11.1)
[2020-05-27 08:27] LABS: BUN/Creatinine Ratio 15 (6-26); Blood Urea Nitrogen 12 mg/dL (8-23); Calcium 8.2 mg/dL (8.6-10.3); Carbon Dioxide 22 mEq/L (23-29); Chloride 107 mEq/L (98-107); Glucose 91 mg/dL (70-105); Osmolality,Calculated 283 (280-300); Potassium 3.7 mEq/L (3.5-5.1); Sodium 137 mEq/L (136-145); eGFR For African Americans > 60 (> 60); eGFR For Non-African Americans > 60 (> 60)
[2020-05-27] MEDS: Insulin LISPRO 300 UNITS/3 ML VIAL SQ SCH ×3 (09:14→16:33)
[2020-05-27] MEDS: Piperacillin/Tazobactam 3.375 GM in 0.9 % Sodium Chloride Mini Bag 100 ML IVPB SCH ×2 (09:19→17:16)
[2020-05-27] MEDS: lisinopriL 10 MG TABLET PO SCH (09:19)
[2020-05-27] MEDS: Cyanocobalamin (B-12) 1,000 MCG TABLET PO SCH (09:19)
[2020-05-27] MEDS: Metoprolol XL (24 HR) Succ 25 MG TAB.ER.24H PO SCH (09:19)
[2020-05-27] MEDS: Furosemide 40 MG TABLET PO SCH (09:19)
[2020-05-27] MEDS: Apixaban 5 MG TABLET PO SCH ×2 (09:19→20:34)
[2020-05-27] MEDS: Thiamine (B-1) 100 MG TABLET PO SCH (09:19)
[2020-05-27] MEDS: Acetaminophen 325 MG TABLET PO PRN (09:21)
[2020-05-27] MEDS: Nystatin POWDER 30 GM BOTTLE TP SCH ×2 (17:16→20:38)
[2020-05-27] MEDS: Insulin DETEMIR 100 UNIT/ML X5UNITS SQ SCH (20:35)
[2020-05-27] MEDS: Nicotine 14 MG PATCH.TD24 TD SCH (21:35)
[2020-05-28] MEDS: Piperacillin/Tazobactam 3.375 GM in 0.9 % Sodium Chloride Mini Bag 100 ML IVPB SCH ×3 (00:47→16:53)
[2020-05-28] MEDS: Insulin LISPRO 300 UNITS/3 ML VIAL SQ SCH ×3 (07:31→16:59)
[2020-05-28] MEDS ORDERED: 0.9 % Sodium Chloride Mini Bag 100 ML ONE (08:39)
[2020-05-28 08:48] LABS: Hematocrit 36.5 % (37.5-50.1); Hemoglobin 11.7 g/dL (12.9-16.9); Mean Corpuscular HGB Conc 32.1 g/dL (31.6-35.5); Mean Corpuscular Volume 96.6 fL (83.0-100.0); Mean Platelet Volume 10.5 fL (9.4-12.4); Platelet Count 269 K/mcL (140-400); Red Blood Count 3.78 M/mcL (4.19-5.50); Red Cell Distribution Width 14.2 % (11.5-14.5); White Blood Count 11.1 K/mcL (4.3-11.1)
[2020-05-28] MEDS: lisinopriL 10 MG TABLET PO SCH (08:48)
[2020-05-28] MEDS: Apixaban 5 MG TABLET PO SCH ×2 (08:48→20:36)
[2020-05-28] MEDS: Thiamine (B-1) 100 MG TABLET PO SCH (08:48)
[2020-05-28] MEDS: Cyanocobalamin (B-12) 1,000 MCG TABLET PO SCH (08:48)
[2020-05-28] MEDS: Acetaminophen 325 MG TABLET PO PRN (08:48)
[2020-05-28] MEDS: Metoprolol XL (24 HR) Succ 25 MG TAB.ER.24H PO SCH (08:48)
[2020-05-28] MEDS: Furosemide 40 MG TABLET PO SCH (08:48)
[2020-05-28] MEDS: Nicotine 14 MG PATCH.TD24 TD SCH (08:49)
[2020-05-28] MEDS: Nystatin POWDER 30 GM BOTTLE TP SCH ×3 (08:50→20:39)
[2020-05-28 09:10] LABS: BUN/Creatinine Ratio 16 (6-26); Blood Urea Nitrogen 14 mg/dL (8-23); Calcium 8.6 mg/dL (8.6-10.3); Carbon Dioxide 26 mEq/L (23-29); Chloride 104 mEq/L (98-107); Glucose 93 mg/dL (70-105); Osmolality,Calculated 284 (280-300); Potassium 3.7 mEq/L (3.5-5.1); Sodium 137 mEq/L (136-145); eGFR For African Americans > 60 (> 60); eGFR For Non-African Americans > 60 (> 60)
[2020-05-28] MEDS: *HR* HYDROcodone/Acet 5/325 mg TABLET PO PRN (20:36)
[2020-05-28] MEDS: Insulin DETEMIR 100 UNIT/ML X5UNITS SQ SCH (20:37)
[2020-05-29] MEDS: Piperacillin/Tazobactam 3.375 GM in 0.9 % Sodium Chloride Mini Bag 100 ML IVPB SCH ×2 (00:10→07:24)
[2020-05-29] MEDS: lisinopriL 10 MG TABLET PO SCH (07:28)
[2020-05-29] MEDS: Cyanocobalamin (B-12) 1,000 MCG TABLET PO SCH (07:28)
[2020-05-29] MEDS: Apixaban 5 MG TABLET PO SCH ×2 (07:28→20:14)
[2020-05-29] MEDS: Furosemide 40 MG TABLET PO SCH (07:28)
[2020-05-29] MEDS: Nicotine 14 MG PATCH.TD24 TD SCH (07:29)
[2020-05-29] MEDS: Thiamine (B-1) 100 MG TABLET PO SCH (07:29)
[2020-05-29] MEDS: Metoprolol XL (24 HR) Succ 25 MG TAB.ER.24H PO SCH (07:29)
[2020-05-29] MEDS: Insulin LISPRO 300 UNITS/3 ML VIAL SQ SCH ×3 (07:29→16:00)
[2020-05-29] MEDS: Nystatin POWDER 30 GM BOTTLE TP SCH ×3 (07:29→20:15)
[2020-05-29] MEDS: levoFLOXacin 500 MG TABLET PO SCH (07:54)
[2020-05-29] MEDS: *HR* HYDROcodone/Acet 5/325 mg TABLET PO PRN (20:14)
[2020-05-29] MEDS ORDERED: Insulin DETEMIR 100 UNIT/ML X5UNITS SQ SCH (21:00)
[2020-05-30] MEDS: Furosemide 40 MG TABLET PO SCH (07:36)
[2020-05-30] MEDS: Apixaban 5 MG TABLET PO SCH (07:36)
[2020-05-30] MEDS: lisinopriL 10 MG TABLET PO SCH (07:36)
[2020-05-30] MEDS: Thiamine (B-1) 100 MG TABLET PO SCH (07:36)
[2020-05-30] MEDS: Metoprolol XL (24 HR) Succ 25 MG TAB.ER.24H PO SCH (07:36)
[2020-05-30] MEDS: levoFLOXacin 500 MG TABLET PO SCH (07:36)
[2020-05-30] MEDS: Cyanocobalamin (B-12) 1,000 MCG TABLET PO SCH (07:37)
[2020-05-30] MEDS: Insulin LISPRO 300 UNITS/3 ML VIAL SQ SCH (07:37)
[2020-05-30] MEDS: Nicotine 14 MG PATCH.TD24 TD SCH (07:37)
[2020-05-30] MEDS: Nystatin POWDER 30 GM BOTTLE TP SCH (07:38)
[2020-05-30 11:08] VITALS: BP 127/76
== END 2020-05-30 11:55 ==
LOC: 3BNU → SUATTDRO 02:23
PROVIDERS: ADMIT Internal Medicine; ATTEND Nurse Practitioner Adult Health

== ENCOUNTER 2020-06-10 18:52 | Observation (INO) ==
[2020-06-10] MEDS ORDERED: Naloxone 0.4 MG/ML INJ IVP PRN (23:17)
[2020-06-10] MEDS ORDERED: Ondansetron 4 MG/2 ML VIAL IVP PRN (23:17)
[2020-06-10] MEDS ORDERED: Dextrose Gel 15 GM/37.5 ML TUBE PO PRN ×2 (23:19)
[2020-06-10] MEDS ORDERED: *HR* Dextrose 50 % in Water (Vial) 50 ML VIAL IVP PRN (23:19)
[2020-06-10] MEDS ORDERED: D5% in Water 1,000 ML IVC PRN (23:19)
[2020-06-10] MEDS ORDERED: 0.9 % Sodium Chloride 1,000 ML IVC SCH (23:30)
[2020-06-11] MEDS: Insulin LISPRO 300 UNITS/3 ML VIAL SQ SCH ×4 (00:17→17:22)
[2020-06-11 00:55] LABS: Basophils % 0.3 %; Eosinophils # 0.3 K/mcL (0.0-0.6); Eosinophils % 3.9 %; Hematocrit 29.9 % (37.5-50.1); Hemoglobin 9.2 g/dL (12.9-16.9); Immature Granulocytes % 0.3 % (0-4); Lymphocytes # 0.7 K/mcL (0.6-4.6); Mean Corpuscular HGB Conc 30.8 g/dL (31.6-35.5); Mean Corpuscular Hemoglobin 30.1 pg (28.0-33.3); Mean Corpuscular Volume 97.7 fL (83.0-100.0); Mean Platelet Volume 11.2 fL (9.4-12.4); Monocytes # 0.5 K/mcL (0.0-1.3); Monocytes % 6.6 %; Neutrophils # 5.7 K/mcL (1.6-8.9); Platelet Count 192 K/mcL (140-400); Red Blood Count 3.06 M/mcL (4.19-5.50); Red Cell Distribution Width 14.6 % (11.5-14.5); Segmented Neutrophils % 78.9 %; White Blood Count 7.2 K/mcL (4.3-11.1)
[2020-06-11 00:57] LABS: INR 1.3
[2020-06-11 00:59] LABS: Activated Partial Thrombo Time 32.5 Seconds (26.0-36.0)
[2020-06-11 01:12] LABS: Alanine Aminotransferase 5 Units/L (7-52); Albumin 2.8 g/dL (3.5-5.7); Albumin/Globulin Ratio 0.8 (1.1-2.2); Alkaline Phosphatase 88 Units/L (34-104); Aspartate Amino Transferase 8 Units/L (13-39); BUN/Creatinine Ratio 13 (6-26); Bilirubin,Total 0.7 mg/dL (0.3-1.0); Blood Urea Nitrogen 14 mg/dL (8-23); Calcium 8.3 mg/dL (8.6-10.3); Carbon Dioxide 26 mEq/L (23-29); Chloride 103 mEq/L (98-107); Globulin 3.5 g/dL (2.4-3.5); Glucose 102 mg/dL (70-105); Osmolality,Calculated 285 (280-300); Potassium 3.6 mEq/L (3.5-5.1); Sodium 137 mEq/L (136-145); Total Protein 6.3 g/dL (6.4-8.9); Troponin I < 0.03 ng/mL (< 0.04); eGFR For African Americans > 60 (> 60); eGFR For Non-African Americans > 60 (> 60)
[2020-06-11] MEDS: Pantoprazole 40 MG VIAL IVP SCH ×2 (03:38→13:24)
[2020-06-11] MEDS ORDERED: Simethicone 40 MG/0.6 ML MLS IR ONE (15:39)
[2020-06-11] MEDS ORDERED: SODIUM CHLORIDE/NAHCO3/KCL/PEG 4,000 ML SOLN.RECON PO ONE (17:00)
[2020-06-11] MEDS: Acetaminophen 325 MG TABLET PO PRN (17:24)
[2020-06-11 18:32] LABS: Hematocrit 31.7 % (37.5-50.1)
[2020-06-12] MEDS: Insulin LISPRO 300 UNITS/3 ML VIAL SQ SCH ×5 (01:15→20:39)
[2020-06-12 02:10] LABS: Hematocrit 30.8 % (37.5-50.1); Hemoglobin 9.7 g/dL (12.9-16.9); Mean Corpuscular HGB Conc 31.5 g/dL (31.6-35.5); Mean Corpuscular Hemoglobin 31.1 pg (28.0-33.3); Mean Corpuscular Volume 98.7 fL (83.0-100.0); Mean Platelet Volume 10.7 fL (9.4-12.4); Platelet Count 186 K/mcL (140-400); Red Blood Count 3.12 M/mcL (4.19-5.50); Red Cell Distribution Width 14.3 % (11.5-14.5); White Blood Count 6.4 K/mcL (4.3-11.1)
[2020-06-12 02:11] LABS: Hematocrit 30.2 % (37.5-50.1); Hemoglobin 9.6 g/dL (12.9-16.9)
[2020-06-12 02:19] LABS: BUN/Creatinine Ratio 11 (6-26); Blood Urea Nitrogen 11 mg/dL (8-23); Calcium 8.2 mg/dL (8.6-10.3); Carbon Dioxide 24 mEq/L (23-29); Chloride 104 mEq/L (98-107); Glucose 80 mg/dL (70-105); Osmolality,Calculated 280 (280-300); Potassium 3.3 mEq/L (3.5-5.1); Sodium 136 mEq/L (136-145); eGFR For African Americans > 60 (> 60); eGFR For Non-African Americans > 60 (> 60)
[2020-06-12] MEDS: Pantoprazole 40 MG VIAL IVP SCH ×2 (03:02→15:16)
[2020-06-12] MEDS: 0.9 % Sodium Chloride 500 ML IVC SCH ×2 (08:11→18:10)
[2020-06-12] MEDS ORDERED: Lidocaine -MPF 2% 2 ML VIAL ONE (08:31)
[2020-06-12] MEDS ORDERED: *HR* Propofol 200 MG/20 ML VIAL IVP ONE ×2 (08:32→08:44)
[2020-06-12] MEDS ORDERED: lisinopriL 10 MG TABLET PO SCH (09:00)
[2020-06-12] MEDS: Thiamine (B-1) 100 MG TABLET PO SCH (09:46)
[2020-06-12] MEDS: Furosemide 40 MG TABLET PO SCH (09:46)
[2020-06-12] MEDS: Metoprolol XL (24 HR) Succ 25 MG TAB.ER.24H PO SCH (09:46)
[2020-06-12] MEDS: Acetaminophen 325 MG TABLET PO PRN (15:12)
[2020-06-13 01:49] LABS: Hematocrit 32.8 % (37.5-50.1); Hemoglobin 10.4 g/dL (12.9-16.9); Mean Corpuscular HGB Conc 31.7 g/dL (31.6-35.5); Mean Corpuscular Hemoglobin 31.3 pg (28.0-33.3); Mean Corpuscular Volume 98.8 fL (83.0-100.0); Mean Platelet Volume 10.6 fL (9.4-12.4); Platelet Count 197 K/mcL (140-400); Red Blood Count 3.32 M/mcL (4.19-5.50); Red Cell Distribution Width 14.6 % (11.5-14.5); White Blood Count 6.9 K/mcL (4.3-11.1)
[2020-06-13 02:08] LABS: Magnesium 1.8 mg/dL (1.6-2.6); Phosphorous 2.4 mg/dL (2.7-4.5)
[2020-06-13 02:09] LABS: BUN/Creatinine Ratio 10 (6-26); Blood Urea Nitrogen 10 mg/dL (8-23); Calcium 8.3 mg/dL (8.6-10.3); Carbon Dioxide 23 mEq/L (23-29); Chloride 104 mEq/L (98-107); Glucose 73 mg/dL (70-105); Osmolality,Calculated 282 (280-300); Potassium 3.5 mEq/L (3.5-5.1); Sodium 137 mEq/L (136-145); eGFR For African Americans > 60 (> 60); eGFR For Non-African Americans > 60 (> 60)
[2020-06-13] MEDS: Pantoprazole 40 MG VIAL IVP SCH (03:15)
[2020-06-13] MEDS ORDERED: lisinopriL 10 MG TABLET PO SCH (09:00)
[2020-06-13] MEDS: Metoprolol XL (24 HR) Succ 25 MG TAB.ER.24H PO SCH (10:10)
[2020-06-13] MEDS: Thiamine (B-1) 100 MG TABLET PO SCH (10:10)
[2020-06-13] MEDS: Furosemide 40 MG TABLET PO SCH (10:11)
[2020-06-13] MEDS: Insulin LISPRO 300 UNITS/3 ML VIAL SQ SCH ×2 (10:20→13:17)
[2020-06-13 14:38] VITALS: BP 124/80
== END 2020-06-13 17:24 | disposition home health service (06) ==
LOC: 3ANU → SUATTDRO 22:35
PROVIDERS: ADMIT Pharmacist; ATTEND Internal Medicine

== ENCOUNTER 2022-02-27 19:32 | Inpatient (IN) ==
[2022-02-28] MEDS ORDERED: Naloxone 0.4 MG/ML INJ IVP PRN (01:18)
[2022-02-28] MEDS ORDERED: Ondansetron ODT 4 MG TAB.RAPDIS SL PRN (01:18)
[2022-02-28] MEDS ORDERED: hydrALAZINE 10 MG TABLET PO PRN (02:26)
[2022-02-28 02:31] LABS: Basophils % 0.3 %; Eosinophils # 0.2 K/mcL (0.0-0.6); Eosinophils % 2.8 %; Hematocrit 34.2 % (37.5-50.1); Hemoglobin 10.6 g/dL (12.9-16.9); Immature Granulocytes % 0.3 % (0-4); Lymphocytes # 0.9 K/mcL (0.6-4.6); Lymphocytes % 14.1 %; Mean Corpuscular Hemoglobin 30.5 pg (28.0-33.3); Mean Corpuscular Volume 98.3 fL (83.0-100.0); Mean Platelet Volume 11.3 fL (9.4-12.4); Monocytes # 0.5 K/mcL (0.0-1.3); Monocytes % 7.4 %; Neutrophils # 4.8 K/mcL (1.6-8.9); Platelet Count 185 K/mcL (140-400); Red Blood Count 3.48 M/mcL (4.19-5.50); Red Cell Distribution Width 13.9 % (11.5-14.5); Segmented Neutrophils % 75.1 %; White Blood Count 6.4 K/mcL (4.3-11.1)
[2022-02-28 02:48] LABS: Albumin 2.8 g/dL (3.5-5.7); Albumin/Globulin Ratio 0.7 (1.1-2.2); Bilirubin,Total 0.6 mg/dL (0.3-1.0); Calcium 8.5 mg/dL (8.6-10.3); Globulin 3.8 g/dL (2.4-3.5); Phosphorous 3.8 mg/dL (2.7-4.5); Potassium 4.4 mEq/L (3.5-5.1); Total Protein 6.6 g/dL (6.4-8.9)
[2022-02-28] MEDS ORDERED: Dextrose Gel 15 GM/37.5 ML TUBE PO PRN ×2 (03:28)
[2022-02-28] MEDS ORDERED: D5% in Water 1,000 ML IVC PRN (03:28)
[2022-02-28] MEDS ORDERED: *HR* Dextrose 50 % in Water (Syg) 50 ML SYRINGE IVP PRN (03:28)
[2022-02-28] MEDS ORDERED: Perflutren Lipid Microsphere 1.3 ML in 0.9 % Sodium Chloride 8.7 ML IVP PRN (03:45)
[2022-02-28] MEDS: Furosemide 20 MG/2 ML VIAL IVP SCH ×2 (04:05→15:51)
[2022-02-28] MEDS: Insulin LISPRO 300 UNITS/3 ML VIAL SUBQ SCH ×4 (08:58→21:22)
[2022-02-28] MEDS ORDERED: Apixaban 5 MG TABLET PO SCH (09:00)
[2022-02-28] MEDS: Tiotropium 10 INH DOSE IH SCH (10:17)
[2022-02-28] MEDS: Budesonide/Formoterol 160/4.5 1 PUFF INH IH SCH ×2 (10:17→20:18)
[2022-02-28] MEDS: Metoprolol XL (24 HR) Succ 25 MG TAB.ER.24H PO SCH (15:50)
[2022-02-28] MEDS: Melatonin 3 MG TABLET PO PRN (21:26)
[2022-03-01 02:20] LABS: Hematocrit 33.6 % (37.5-50.1); Hemoglobin 10.5 g/dL (12.9-16.9); Mean Corpuscular HGB Conc 31.3 g/dL (31.6-35.5); Mean Corpuscular Hemoglobin 31.2 pg (28.0-33.3); Mean Corpuscular Volume 99.7 fL (83.0-100.0); Mean Platelet Volume 11.4 fL (9.4-12.4); Platelet Count 195 K/mcL (140-400); Red Blood Count 3.37 M/mcL (4.19-5.50); Red Cell Distribution Width 13.8 % (11.5-14.5)
[2022-03-01 02:42] LABS: Calcium 8.7 mg/dL (8.6-10.3); Magnesium 1.9 mg/dL (1.6-2.6); Potassium 4.9 mEq/L (3.5-5.1)
[2022-03-01] MEDS: Acetaminophen 325 MG TABLET PO PRN ×2 (04:33→22:54)
[2022-03-01] MEDS ORDERED: NON-FORMULARY MEDICATION 1 EACH EACH (Omeprazole 40 MG Capsule.Dr) PO SCH (09:00)
[2022-03-01] MEDS: Metoprolol XL (24 HR) Succ 25 MG TAB.ER.24H PO SCH (09:05)
[2022-03-01] MEDS: Insulin LISPRO 300 UNITS/3 ML VIAL SUBQ SCH ×4 (09:05→21:12)
[2022-03-01] MEDS: Furosemide 20 MG/2 ML VIAL IVP SCH ×2 (09:05→17:16)
[2022-03-01] MEDS: Budesonide/Formoterol 160/4.5 1 PUFF INH IH SCH ×2 (10:41→19:59)
[2022-03-01] MEDS: Tiotropium 10 INH DOSE IH SCH (10:41)
[2022-03-01 12:57] LABS: Total Protein,Pleural Fluid 2.9 g/dL
[2022-03-01 13:56] LABS: RBC,Pleural Fluid < 2000 RBC/mcL
[2022-03-01 13:57] LABS: Appearance of Pleural Fl Clear (Clear)
[2022-03-01] MEDS: Melatonin 3 MG TABLET PO PRN (21:15)
[2022-03-02 03:33] LABS: Hematocrit 32.1 % (37.5-50.1); Hemoglobin 9.9 g/dL (12.9-16.9); Mean Corpuscular HGB Conc 30.8 g/dL (31.6-35.5); Mean Corpuscular Hemoglobin 30.5 pg (28.0-33.3); Mean Corpuscular Volume 98.8 fL (83.0-100.0); Mean Platelet Volume 11.6 fL (9.4-12.4); Platelet Count 179 K/mcL (140-400); Red Blood Count 3.25 M/mcL (4.19-5.50); Red Cell Distribution Width 13.5 % (11.5-14.5); White Blood Count 9.1 K/mcL (4.3-11.1)
[2022-03-02 03:52] LABS: Calcium 8.4 mg/dL (8.6-10.3); Potassium 4.3 mEq/L (3.5-5.1)
[2022-03-02] MEDS: Insulin LISPRO 300 UNITS/3 ML VIAL SUBQ SCH ×4 (07:04→20:30)
[2022-03-02] MEDS: Budesonide/Formoterol 160/4.5 1 PUFF INH IH SCH ×2 (07:57→20:10)
[2022-03-02] MEDS: Tiotropium 10 INH DOSE IH SCH (08:00)
[2022-03-02 08:15] LABS: Amorphous Sediment,Urine Few per hpf (None-Few); Bacteria,Urine Few per hpf (None-Few); Bilirubin,Urine Negative (Negative); Blood,Urine Small (Negative); Clarity,Urine Clear (Clear); Color,Urine Light-Yellow (Yellow); Glucose,Urine (UA) Normal (Normal); Ketones,Urine Negative (Negative); Leukocyte Esterase,Urine Moderate (Negative); Mucus,Urine Few per lpf (None-Few); Nitrite,Urine Negative (Negative); Protein,Urine 200 mg/dL (Neg-Trace); Specific Gravity,Urine 1.013 (1.010-1.025); Squamous Epithelial Cell,Urine Few per hpf (None-Few); Urobilinogen,Urine Normal (Normal); WBC,Urine 15-30 per hpf (0-3)
[2022-03-02] MEDS: Metoprolol XL (24 HR) Succ 25 MG TAB.ER.24H PO SCH (08:55)
[2022-03-02] MEDS: Melatonin 3 MG TABLET PO PRN (21:24)
[2022-03-02] MEDS: Acetaminophen 325 MG TABLET PO PRN (21:24)
[2022-03-03 06:21] LABS: Hematocrit 30.9 % (37.5-50.1); Hemoglobin 9.9 g/dL (12.9-16.9); Mean Corpuscular Hemoglobin 31.4 pg (28.0-33.3); Mean Corpuscular Volume 98.1 fL (83.0-100.0); Mean Platelet Volume 11.5 fL (9.4-12.4); Platelet Count 174 K/mcL (140-400); Red Blood Count 3.15 M/mcL (4.19-5.50); Red Cell Distribution Width 13.7 % (11.5-14.5); White Blood Count 7.6 K/mcL (4.3-11.1)
[2022-03-03 06:50] LABS: Calcium 8.5 mg/dL (8.6-10.3); Potassium 4.3 mEq/L (3.5-5.1)
[2022-03-03] MEDS: Insulin LISPRO 300 UNITS/3 ML VIAL SUBQ SCH ×4 (07:06→21:26)
[2022-03-03] MEDS: Tiotropium 10 INH DOSE IH SCH (07:53)
[2022-03-03] MEDS: Budesonide/Formoterol 160/4.5 1 PUFF INH IH SCH ×2 (07:54→19:52)
[2022-03-03] MEDS: Acetaminophen 325 MG TABLET PO PRN ×2 (09:35→21:20)
[2022-03-03] MEDS: Metoprolol XL (24 HR) Succ 25 MG TAB.ER.24H PO SCH (09:35)
[2022-03-03] MEDS: Amoxicillin 500 MG CAPSULE PO SCH ×3 (11:42→21:20)
[2022-03-03] MEDS ORDERED: Albumin 25% 25gram/100mL 25 GM/100 ML IV.SOLN IVPB ONE (13:39)
[2022-03-03] MEDS ORDERED: Furosemide 40 MG/4 ML VIAL IVP ONE (13:39)
[2022-03-03] MEDS: Apixaban 5 MG TABLET PO SCH (21:20)
[2022-03-03] MEDS: Melatonin 3 MG TABLET PO PRN (21:24)
[2022-03-04 07:00] LABS: Hematocrit 29.4 % (37.5-50.1); Hemoglobin 9.2 g/dL (12.9-16.9); Mean Corpuscular HGB Conc 31.3 g/dL (31.6-35.5); Mean Corpuscular Hemoglobin 31.3 pg (28.0-33.3); Mean Platelet Volume 11.6 fL (9.4-12.4); Platelet Count 166 K/mcL (140-400); Red Blood Count 2.94 M/mcL (4.19-5.50); Red Cell Distribution Width 13.6 % (11.5-14.5); White Blood Count 7.3 K/mcL (4.3-11.1)
[2022-03-04 07:25] LABS: Albumin 2.9 g/dL (3.5-5.7); Albumin/Globulin Ratio 0.9 (1.1-2.2); Bilirubin,Total 0.5 mg/dL (0.3-1.0); Calcium 8.4 mg/dL (8.6-10.3); Globulin 3.1 g/dL (2.4-3.5); Potassium 4.5 mEq/L (3.5-5.1)
[2022-03-04] MEDS: Tiotropium 10 INH DOSE IH SCH (08:11)
[2022-03-04] MEDS: Budesonide/Formoterol 160/4.5 1 PUFF INH IH SCH ×2 (08:11→22:48)
[2022-03-04] MEDS: Insulin LISPRO 300 UNITS/3 ML VIAL SUBQ SCH ×4 (08:55→19:57)
[2022-03-04] MEDS: Apixaban 5 MG TABLET PO SCH ×2 (08:56→20:06)
[2022-03-04] MEDS: Metoprolol XL (24 HR) Succ 25 MG TAB.ER.24H PO SCH (08:56)
[2022-03-04] MEDS: Amoxicillin 500 MG CAPSULE PO SCH ×3 (08:56→20:06)
[2022-03-04] MEDS: Albumin 25% 25gram/100mL 25 GM/100 ML IV.SOLN IVPB SCH ×2 (12:54→20:06)
[2022-03-04] MEDS: Acetaminophen 325 MG TABLET PO PRN (20:06)
[2022-03-05 02:26] LABS: Calcium 8.6 mg/dL (8.6-10.3); Potassium 4.9 mEq/L (3.5-5.1)
[2022-03-05] MEDS: Albumin 25% 25gram/100mL 25 GM/100 ML IV.SOLN IVPB SCH (05:39)
[2022-03-05 07:34] VITALS: TEMP 98.3
[2022-03-05] MEDS: Tiotropium 10 INH DOSE IH SCH (08:02)
[2022-03-05] MEDS: Budesonide/Formoterol 160/4.5 1 PUFF INH IH SCH (08:02)
[2022-03-05] MEDS: Insulin LISPRO 300 UNITS/3 ML VIAL SUBQ SCH (08:45)
[2022-03-05] MEDS: Apixaban 5 MG TABLET PO SCH (08:45)
[2022-03-05] MEDS: Amoxicillin 500 MG CAPSULE PO SCH (08:45)
[2022-03-05] MEDS: Metoprolol XL (24 HR) Succ 25 MG TAB.ER.24H PO SCH (08:45)
[2022-03-05] MEDS ORDERED: Chloraseptic Spray 177 ML BOTTLE MM PRN (10:07)
[2022-03-05 11:15] VITALS: BP 144/65; PULSE 91
[2022-03-05 12:52] VITALS: O2SAT 96
== END 2022-03-05 14:58 | disposition home or self-care (01) | DRG 291 ==
LOC: 2NENU → SUATTDRO 03-01 12:51
PROVIDERS: ADMIT Internal Medicine; ATTEND Internal Medicine